=== PATIENT | female | born 1970 | race Caucasian/White ===

== ENCOUNTER 2018-06-15 22:40 | Emergency (ER) | payer BC, SELFPAY ==
[2018-06-15 22:41] VITALS: BP 215/98; PULSE 80; RESP 16; TEMP 36.7; O2SAT 92; BMI 42.3
[2018-06-15 23:09] VITALS: BP 162/85
--- NOTE | 2018-06-15 23:12 | ED.DCSUM_ITS ---
- ER Visit Summary Date of Service: 06/15/18 Chief Complaint: Abscess History of Present Illness: The patient is a [address] Gallo. She reports that she has an abscess on her right buttock to begin partially 3 weeks ago. States that it popped and she got it drained well. However she had incre asing pain over the past 2 days. She describes a sharp pain is 10 out of 10 at worst and 6 out of 10 currently. Is worsened by sitting relieved by standing. She denies any constitutional symptoms. No fever, chills, nausea, or vomiting. Patient reports that she had a right knee arthroscopy [address] Alejo[address] She reports that her knee is doing well. She states that she has minimal pain there. Physical Examination: Vitals: Stable. Afebrile. General: Well-nourished and well-developed. Head: Normocephalic atraumatic. Neck: Supple, no lymphadenopathy. No JVD. Nontender. Cardiovascular: Regular rate and rhythm. No murmurs. Respiratory: No respiratory distress. Clear to auscultation bilaterally. Abdominal: Soft, nontender, nondistended, normal bowel sounds. No guarding, rebound, or peritoneal signs. Back: Nontender. Extremities: Arthroscopy incisions are healing well over her right knee. There is no overlying erythema or warmth to suggest a septic joint. She has good range of motion with minimal pain. Skin: In the middle third of her gluteal cleft there is a 4 cm indurated area with 2 cm central fluctuance on the right.. Neurologic: Alert and oriented ?3. Cranial nerves II through XII are intact. Normal strength and sensation. Psych: Normal affect. Emergency Department Course and Treatment: Patient was treated with morphine IM. She was given doxycycline and Zofran p.o. She had an I&D performed. She tolerated this well. Treatment Plan: Patient has Machias already. She will be discharged with doxycycline and Zofran. Instructed to follow-up with Dr. Pena in 2 days for a wound check. Return to the emergency department for any worsening symptoms. Disposition: To home in improved and stable condition. Impression: 1. Right buttock abscess. 2. I&D. 3. 3 days status post right knee arthroscopy. Procedure Note: Abscess was cleansed with chlorhexidine soap. Anesthetized with 1% lidocaine without epinephrine. An incision was made with an 11 scalpel blade. A moderate amount of pus was drained. Curved hemostats were used to break up loculations. The wound was copiously irrigated with normal saline. It was loosely packed with iodoform gauze. The patient tolerated it well. This note was generated with [employer] dictation software. It may contain incorrect words, spelling, and punctuation that were not noted in review of the chart prior to signing ED Disposition - Plan for ED Patient: Disposition: Home or Assisted Living Chief Complaint: Abscess Instructions: ED Abscess IandD Prescriptions: Ondansetron [Zofran Odt] 4 mg PO Q8H PRN PRN #10 tablet PRN Reason: Nausea Doxycycline 100 mg PO BID #20 capsule Referrals: Eryn Langston MD [STAFF PHYSICIAN] - 2 Days for wound check
[2018-06-15] MEDS: Doxycycline 100 MG CAPSULE PO (23:13)
[2018-06-15] MEDS: Ondansetron ODT 4 MG Tablet PO (23:14)
[2018-06-15] MEDS: morphine 8 MG/ML Syringe IM (23:15)
[2018-06-16 00:20] VITALS: BP 152/86; PULSE 77; RESP 16; O2SAT 92
== END 2018-06-16 00:26 | disposition home or self-care (01) ==
LOC: ED 23:35
PROVIDERS: Emergency Provider Emergency Medicine; Family Provider Internal Medicine; PCP Internal Medicine
DX: L02.31 Cutaneous abscess of buttock (principal); Z98.890 Other specified postprocedural states; J45.909 Unspecified asthma, uncomplicated; E11.9 Type 2 diabetes mellitus without complications; I10 Essential (primary) hypertension; Z79.84 Long term (current) use of oral hypoglycemic drugs; Z79.899 Other long term (current) drug therapy; F17.200 Nicotine dependence, unspecified, uncomplicated
CPT/HCPCS: 10060; 96372; 99283

== ENCOUNTER 2019-01-30 11:46 | Emergency (ER) | payer SELFPAY ==
[2019-01-30 11:48] VITALS: BP 166/91; PULSE 87; RESP 18; TEMP 36.4; O2SAT 94; BMI 43.7
[2019-01-30] MEDS: 0.9% Normal Saline 1,000 ML 1000 ML IV (12:36)
[2019-01-30 12:44] LABS: Basophil# 0.05 X10^3/uL; Basophil% 0.8 % (0-1); Eosinophils% 1.7 % (0-5); Hematocrit 54.6 % (37-47); Hemoglobin 17.3 g/dL (12.0-15.0); Lymphocyte % 6.8 % (19-41); Mean Corp Hgb Conc 31.7 g/dL (32-36); Mean Corpuscular Hgb 27.8 pg (27.0-32.0); Mean Corpuscular Volume 87.8 fL (81-99); Mean Platelet Vol. 9.8 fl (6.2-12.0); Monocyte# 0.33 X10^3/uL; Monocyte% 5.6 % (0-10); NRBC Flagged by Analyzer 0 % (0-5); Neutrophil # 5.01 X10^3/uL (2.7-7.7); Neutrophil % 84.6 % (47-70); POSITIVE DIFFERENTIAL YES; Platelet Count 142 K/mm3 (150-450); RBC Distribution Width CV 14.6 % (11.6-14.6); RBC Distribution Width SD 46.6 fl (35.1-43.9); Red Blood Count 6.22 M/mm3 (4.2-5.4); White Blood Count 5.9 K/mm3 (4.4-11.0)
[2019-01-30 12:56] LABS: AST(SGOT) 58 U/L (15-37); Alanine Aminotransfer ALT/SGPT 116 U/L (13-56); Albumin, Serum 3.7 g/dL (3.2-5.0); Alkaline Phosphatase 79 U/L (45-117); Anion Gap 6 (5-15); BUN 10 mg/dL (7-18); BUN/Creat Ratio 16.7 RATIO (10-20); Bilirubin, Direct 0.37 mg/dL (0.00-0.30); Calcium,Total 9.1 mg/dL (8.5-10.1); Chloride 102 mmol/L (98-107); EST Glomerular Filtration Rate 113 mL/min (>60); Est Glom Filt Rate - Afr Amer 137 mL/min (>60); Estimated Creatinine Clearance 115.67 ml/min; Globulin 3.7 g/dL (2.2-4.2); Glucose 157 mg/dL (74-106); Lipase 98 U/L (73-393); Potassium 3.9 mmol/L (3.5-5.1); Protein, Total 7.4 g/dL (6.4-8.2); Sodium Level 138 mmol/L (136-145)
[2019-01-30 13:13] LABS: Differential Indicated SCAN CRITERIA MET
[2019-01-30 13:36] LABS: Differential Comment SCANNED
--- NOTE | 2019-01-30 13:40 | ED.DCSUM_ITS ---
- ER Visit Summary Date of Service: 01/30/19 Chief Complaint: Elevated LFTs History of Present Illness: The patient is a [address] Gallo. She reports that she had a normal checkup 2 days ago and is found to have elevated LFTs. She was sent to the emerge department for evaluation. Patient reports that yesterday she had a fever to 102 degrees and frequent urination as well as dysuria. She went to the urgent care and was diagnosed with a urinary tract infection. She was placed on Keflex. She reports that her frequency and dysuria have both improved. She reports that her temperature today has been 100.5 degrees. She does report that she has suprapubic pain, but this is normal for her. She denies any right upper quadrant tenderness to palpation. Patient denies any fatty food intolerance. She denies any known exposure to hepatitis. She does not take Tylenol. She does take Voltaren which can cause hepatitis. She has been on this for a year. Physical Examination: Vitals: Stable. Afebrile. General: Well-nourished and well-developed. Head: Normocephalic atraumatic. Neck: Supple, no lymphadenopathy. No JVD. Nontender. Cardiovascular: Regular rate and rhythm. No murmurs. Respiratory: No respiratory distress. Clear to auscultation bilaterally. Abdominal: Soft, nontender, nondistended, normal bowel sounds. No guarding, rebound, or peritoneal signs. Back: Nontender. Extremities: Nontender, no edema. Skin: Normal color, no rash. Neurologic: Alert and oriented ?3. Cranial nerves II through XII are intact. Normal strength and sensation. Psych: Normal affect. Test Results: CBC shows an H&H 17.3 and 54.6, platelets 142, segmented neutrophils 85, lymphocytes of 7. Chem-7 shows a glucose 157. LFTs show total bili 1.4, direct bili 0.37, ALT 116, AST 58. Lipase is normal. I did get her old labs from [facility] and on January 28 her AST was 48 and her ALT was 65. She did not have a bilirubin obtained then. Emergency Department Course and Treatment: I had a prolonged discussion about possible etiology of this with the patient. She had a hepatitis panel sent. She also had total iron binding capacity and iron levels sent. Treatment Plan: Patient will be discharged with instructions to stop her Voltaren. Follow-up with Dr. Gallo in 2 days for the results of the other labs. She does understand that this could be viral hepatitis, hemochromatosis, or medication related. Return to the emergency department for any worsening symptoms. Disposition: To home in improved and stable condition. Impression: 1. Elevated liver enzymes, uncertain. This note was generated with [employer] dictation software. It may contain incorrect words, spelling, and punctuation that were not noted in review of the chart prior to signing ED Disposition - Plan for ED Patient: Disposition: Home or Assisted Living Instructions: HEPATITIS, Cause Unknown (test pending) Referrals: Jose Gallo MD [Primary Care Provider] - 2 Days Additional Instructions: Stop taking your voltaren as this can cause inflammation of your liver. Speak with Dr. Gallo about the ruslts of your viral hepatitis panel, Iron level, and total iron binding capacity. If this doesn't give an answer for your elevated liver enzymes you will require further testing and possibly referral to a liver specialist.
[2019-01-30 13:56] LABS: Iron 46 ug/dL (50-170); Iron Binding Capacity,Total 403 ug/dL (250-450)
[2019-01-30 13:59] VITALS: BP 146/86; PULSE 75; RESP 17; O2SAT 98
[2019-02-02 04:07] LABS: HEPATITIS B SURFACE AG Negative (Negative); Hepatitis A IgM Antibody Negative (Negative); Hepatitis B Core AB IgM Negative (Negative)
[2019-02-02 08:36] LABS: Hep C Antibodies <0.1 s/co ratio (0.0-0.9)
== END 2019-01-30 14:00 | disposition home or self-care (01) ==
PROVIDERS: Emergency Provider Emergency Medicine; Family Provider Internal Medicine; PCP Internal Medicine
DX: R74.8 Abnormal levels of other serum enzymes (principal); R51 Headache; N39.0 Urinary tract infection, site not specified; E11.9 Type 2 diabetes mellitus without complications; K58.9 Irritable bowel syndrome, unspecified; Z87.19 Personal history of other diseases of the digestive system; Z79.84 Long term (current) use of oral hypoglycemic drugs; Z79.899 Other long term (current) drug therapy; F17.200 Nicotine dependence, unspecified, uncomplicated
CPT/HCPCS: 80048; 80074; 80076; 83540; 83550; 83690; 85025; 96360; 99283; J7030; A4216

== ENCOUNTER 2021-10-28 19:41 | Emergency (ER) | payer SELFPAY ==
[2021-10-28 19:42] VITALS: BP 173/98; PULSE 87; RESP 18; TEMP 37.6; O2SAT 98; BMI 40.7
--- NOTE | 2021-10-28 19:58 | EX.ED.DYSGE1 ---
HPI History of Present Illness Chief Complaint: Fever Detail of Chief Complaint: Fever that she noticed this morning. Informant: patient Narrative Narrative: Patient presents to the emergency department complaint of fever that started today. Patient states that she developed some chills. She took some Tylenol and felt better. Around 5 PM she noted that she had a fever again up to 103.6. She again described body aches and chills and a bit of a headache. She denies any cough or sore throat. She is had no vomiting or diarrhea. She denies any abdominal pain. She denies dysuria. Patient denies sick contacts. Patient states that she had COVID 2 years ago and never received the COVID-vaccine. Prior similar symptoms: No PFSH PFSH Medical History no medical history Home Medications amlodipine 1 tab PO DAILY 06/15/18 [History Last Taken Unknown] citalopram 1 tab PO DAILY 06/15/18 [History Last Taken Unknown] metformin 2 mg PO BID 06/15/18 [History Last Taken Unknown] ramipril 1 tab PO DAILY 06/15/18 [History Last Taken Unknown] cephalexin 500 mg PO TID 01/30/19 [History Last Taken Unknown] diclofenac sodium 75 mg PO BIDCM 01/30/19 [History Last Taken Unknown] Allergy/AdvReac Type Severity Reaction Status Date / Time No Known Allergies Allergy Verified 10/28/21 19:45 Social History Smoking Status: Current every day smoker tobacco type: cigarettes ROS ROS ED Constitutional Constitutional ED: Reports systems reviewed and no addt'l complaints, except as documented, chills, fever(s) and sweats; Denies body ache(s) or change in weight Eyes Eyes: Denies acute decrease in peripheral vision, change in vision, double vision or loss of vision ENT ENT ED: Reports none; Denies ear pain, lip swelling, loss taste/smell, neck pain, otalgia or sore throat Cardiovascular Cardiovascular: Reports none; Denies abdominal pain, chest pain with activity, leg edema, lightheadedness, palpitations, rapid heart rate or syncope Respiratory/Chest Respiratory/Chest: Reports none; Denies change in mental status, dry cough, dyspnea, hemoptysis, shortness of breath at rest or shortness of breath with exertion Gastrointestinal Gastrointestinal: Reports none; Denies abdominal pain, change in stool character, diarrhea, hematemesis, hematochezia, melena, rectal bleeding or vomiting Genitourinary Genitourinary ED: Reports none; Denies abdominal discomfort, anuria, dysuria, genital pain or polyuria Musculoskeletal Musculoskeletal: Reports none and myalgias; Denies arthralgias, back pain, difficulty walking, extremity pain or muscle weakness Integumentary Reports none; Denies abscess or rash Neurologic Neurologic: Reports none and headache(s); Denies abnormal gait, confusion, focal weakness, frequent falls, loss of vision, numbness, paresthesias, radicular pain, vertigo or weakness Psychiatric Psychiatric: Reports systems reviewed and no addt'l complaints, except as documented and none; Denies behavioral changes, confusion, difficulty concentrating, hallucinations, suicidal ideation, tactile hallucinations or visual hallucinations Endocrine Endocrinology: Denies none, cold intolerance, excessive sweating, fatigue or heat intolerance Hematologic/Lymphatic Hematologic/Lymphatic: Reports none; Denies anemia, easy bleeding or easy bruising Allergic/Immunologic Allergic/Immunologic ED: Denies as per HPI, none, lip swelling, mouth swelling, throat swelling, tongue swelling or hives EXAM Physical Exam Const Vital Signs: 10/28/21 19:42 10/28/21 21:16 Temperature 99.6 F H Temperature Source Temporal Pulse Rate 87 Respiratory Rate 18 18 Blood Pressure 173/98 H Blood Pressure Mean 123 Pulse Ox 98 Oxygen Delivery Method Room Air Positive well nourished and well developed General Appearance ED: well developed and NAD HEENT Reports TM's clear and moist mucous membranes normocephalic and atraumatic; Negative for trauma or tenderness Tympanic Membrane ED: Yes TM's clear Eyes PERRL and EOMs intact bilaterally General Eye ED: Negative for pale conjunctiva or scleral icterus Neck no lymphadenopathy, supple and no JVD General: Negative for tenderness Chest Wall inspection of chest normal and palpation of chest normal Chest: Negative for tenderness Resp normal respiratory effort and clear to auscultation bilaterally Effort and Inspection: Negative for respiratory distress or pain with movement Auscultation: Negative for rhonchi, wheezes or diminished lung sounds Cardio regular rate, regular rhythm, S1 normal heart sound, S2 normal heart sound and no murmurs Peripheral Pulses: pulses 2+ throughout GI normal to inspection, nondistended, normoactive bowel sounds, soft to palpation, non-tender, non-distended and no masses Back/Spine no CVA tenderness and no thoracic nor lumbar tenderness Extremity normal to inspection General Extremety ED: Negative for edema General Extremity: Negative for edema Neuro oriented x3, CN's II-XII intact bilaterally, no sensory deficits noted and gait normal Sensorium / Orientation: awake, alert, oriented to person, oriented to place and oriented to time Motor Exam: strength 5/5 throughout and strength abnormal Psych mental status grossly normal Skin no rashes or lesions noted and no wounds MDM MDM MDM Narrative Medical decision making narrative: Patient had a urinalysis that was normal. COVID-19 testing and influenza were both negative. At this point etiology of fever is unclear but I suspect likely viral syndrome. Patient advised to return if cough or shortness of breath or cellulitic changes or if condition should worsen anyway. Patient is a ibuprofen or Tylenol for discomfort and fever. Patient to follow-up with her primary care physician within next 3 to 5 days. Lab Data Labs: Laboratory Results - last 24 hr 10/28/21 20:00 Urine Color Yellow Urine Clarity Clear Urine pH 7.0 Ur Specific [place] 1.010 Urine Protein 500 H Urine Glucose (UA) 50 H Urine Ketones Negative Urine Occult Blood 25 H Urine Nitrite Negative Urine Bilirubin Negative Urine Urobilinogen Normal Ur Leukocyte Esterase 25 H Urine RBC 0-5 SEEN Urine WBC 0-5 SEEN Ur Squamous Epith Cells 0 SEEN Urine Bacteria 0 SEEN Urine Mucus 0 SEEN Discharge Plan Triage Chief Complaint: Fever ED Provider: Meliza Zendejas Dx/Rx/DC Orders Clinical Impression: Fever, Acute viral syndrome Instructions: ED FUO Adult, ED Viral Syndrome (Adult) Prescriptions: No Action metformin 500 MG tablet 2 mg PO BID RF: 0 amlodipine 2.5 MG tablet 1 tab PO DAILY RF: 0 citalopram 20 MG tablet 1 tab PO DAILY RF: 0 ramipril 5 MG capsule 1 tab PO DAILY RF: 0 cephalexin 500 MG capsule 500 mg PO TID RF: 0 diclofenac sodium 75 MG tablet 75 mg PO BIDCM RF: 0 Primary Care Provider: Jose Gallo Referrals: Jose Gallo MD [Primary Care Provider] - 3-5 Days Disposition Disposition: Home, Self Care
[2021-10-28 20:07] LABS: Bacteria 0 SEEN /hpf (None Seen); Mucous, Urine 0 SEEN /hpf (<or=2+); Squamous Epithelial Cells - UA 0 SEEN /hpf (5-10)
[2021-10-28 20:09] LABS: Color, Urine Yellow (Yellow); Glucose, Dipstick 50 mg/dl (Normal); Ketone-Dipstick Negative (Negative); Leukocyte Esterase-Dipstick 25 /ul (Negative); Nitrite-Dipstick Negative (Negative); Occult Blood-Urine 25 /ul (Negative); Protein-Dipstick 500 mg/dl (Negative); Urine Bilirubin Dipstick Negative (Negative); Urine Clarity Clear (Clear); Urine Urobilinogen Normal (Normal)
[2021-10-28 20:26] LABS: Red Blood Cells-Urine 0-5 SEEN /hpf (0-5); White Blood Cells 0-5 SEEN /hpf (0-5)
[2021-10-28 21:16] VITALS: RESP 18
== END 2021-10-28 21:31 | disposition home or self-care (01) ==
PROVIDERS: Emergency Provider Emergency Medicine; PCP Internal Medicine; Visit Provider Emergency Medicine
DX: B34.9 Viral infection, unspecified (principal); F17.210 Nicotine dependence, cigarettes, uncomplicated; Z86.16 Personal history of COVID-19; Z28.310 Unvaccinated for COVID-19; Z28.9 Immunization not carried out for unspecified reason; R50.9 Fever, unspecified
CPT/HCPCS: 81001; 87428; 99282

== ENCOUNTER 2021-10-29 15:12 | Emergency (ER) | payer SELFPAY ==
[2021-10-29 15:13] VITALS: BP 164/87; PULSE 83; RESP 20; TEMP 36.4; O2SAT 95; BMI 40.9
[2021-10-29 15:15] VITALS: BP 159/92; PULSE 77; RESP 18; TEMP 38.2; O2SAT 91
--- NOTE | 2021-10-29 15:28 | EDS_ITS ---
HPI History of Present Illness Chief Complaint: Abd Pain Informant: patient Narrative Narrative: 51-year-old female presenting to the emergency room with fever and abdominal pressure. Patient states she was in the emergency room last night with fever and did not have any abdominal symptoms but did noted myalgias headache and frequent urination. A COVID and flu test were negative. Urinalysis was negative and culture sent. The patient developed pressure this morning went to urgent care and they advised her to come to emergency. She states this feels different than her diverticulitis. She denies any URI symptoms. No cough or shortness of breath. She denies any change in bowel habits. [facility] Medical History (Updated 10/29/21 @ 17:[address] Wilmer Escobar DO) Depression Diverticulitis Hypertension Home Medications amlodipine 1 tab PO DAILY 06/15/18 [History Last Taken Unknown] citalopram 1 tab PO DAILY 06/15/18 [History Last Taken Unknown] metformin 2 mg PO BID 06/15/18 [History Last Taken Unknown] ramipril 1 tab PO DAILY 06/15/18 [History Last Taken Unknown] cephalexin 500 mg PO TID 01/30/19 [History Last Taken Unknown] diclofenac sodium 75 mg PO BIDCM 01/30/19 [History Last Taken Unknown] ciprofloxacin HCl 500 mg PO BID #20 tablet 10/29/21 [Rx Last Taken Unknown] metronidazole 500 mg PO Q8H #30 tab 10/29/21 [Rx Last Taken Unknown] ondansetron 4 mg PO Q6H PRN PRN #15 tab 10/29/21 [Rx Last Taken Unknown] oxycodone-acetaminophen 1 tab PO Q6H PRN PRN 3 Days #12 tablet 10/29/21 [Rx Last Taken Unknown] Allergy/AdvReac Type Severity Reaction Status Date / Time amoxicillin AdvReac Rash Verified 10/29/21 15:13 Social History (Updated 10/29/21 @ 15:[address] Wilmer Escobar DO) Smoking Status: Current every day smoker tobacco type: cigarettes substance use type: does not use ROS ROS ED Constitutional Constitutional ED: Reports chills and fever(s); Denies weight loss Eyes Eyes: Denies change in vision or diplopia ENT ENT ED: Denies ear pain, rhinorrhea or sore throat Cardiovascular Cardiovascular: Denies chest pain, orthopnea, palpitations or racing heartbeat Respiratory/Chest Respiratory/Chest: Denies cough, dyspnea or orthopnea Gastrointestinal Gastrointestinal: Reports abdominal pain; Denies diarrhea, nausea or vomiting Genitourinary Genitourinary ED: Reports urinary frequency; Denies dysuria or hematuria Musculoskeletal Musculoskeletal: Reports myalgias; Denies arthralgias Integumentary Denies abscess or rash Neurologic Neurologic: Reports headache(s); Denies weakness Psychiatric Psychiatric: Denies anxiety, depression, suicidal ideation or suicidal thoughts Endocrine Endocrinology: Denies polydipsia, polyphagia or polyuria Allergic/Immunologic Allergic/Immunologic ED: Denies mouth swelling, tongue swelling or urticaria EXAM Physical Exam Const Vital Signs: 10/29/21 15:13 10/29/21 15:15 10/29/21 16:07 Temperature 97.5 F L 100.8 F H 100.8 F H Temperature Source Temporal Oral Oral Pulse Rate 83 77 77 Respiratory Rate 20 H 18 18 Blood Pressure 164/87 H 159/92 H 159/92 H Blood Pressure Mean 112 114 114 Pulse Ox 95 91 91 Oxygen Delivery Method Room Air Room Air Room Air 10/29/21 16:16 10/29/21 17:00 Temperature 100.2 F H 98.7 F Temperature Source Oral Oral Pulse Rate 76 82 Respiratory Rate 14 18 Blood Pressure 159/97 H 140/88 H Blood Pressure Mean 117 105 Pulse Ox 94 94 Oxygen Delivery Method Room Air Room Air Positive well nourished, well developed and obese General Appearance ED: well developed Nutritional Appearance: obese HEENT Reports normocephalic, head/scalp atraumatic, TM's clear and moist mucous membranes Negative for trauma Tympanic Membrane ED: Yes TM's clear Eyes PERRL and EOMs intact bilaterally Eyes Narrative: No photophobia Neck no lymphadenopathy, supple and no JVD Neck Narrative: No meningeal signs Resp normal respiratory effort and clear to auscultation bilaterally Cardio regular rate, regular rhythm and no murmurs GI normal to inspection, nondistended, normoactive bowel sounds and non-tender Palpation: soft Back/Spine no CVA tenderness and normal ROM Extremity normal to inspection General Extremety ED: Negative for edema General Extremity: Negative for edema Neuro oriented x3 and CN's II-XII intact bilaterally Sensorium / Orientation: alert Motor Exam: strength 5/5 throughout Psych mental status grossly normal Mood & Affect: Negative for depressed or tearful Skin no rashes or lesions noted and no wounds MDM MDM MDM Narrative Medical decision making narrative: Patient's white count is 6.3 with a hemoglobin of 19.4. Lactic acid is normal at 1.1. Urinalysis is negative for obvious infection. CT of the abdomen pelvis demonstrates changes consistent with early diverticulitis no perforation or abscess noted. My interpretation of the chest x-ray is no acute process. Patient will be discharged home on Cipro and Flagyl which she has handled well in the past Lab Data Attestation: I reviewed the patient's lab results. Labs: Laboratory Results - last 24 hr 10/29/21 10/29/21 10/29/21 15:30 15:30 15:30 WBC 6.3 RBC 6.72 H Hgb 19.4 H* Hct 60.9 H MCV 90.6 MCH 28.9 MCHC 31.9 L RDW Std Deviation 45.2 H RDW Coeff of Luz Maria 13.6 Plt Count 123 L MPV 10.0 Immature Gran % (Auto) 0.500 Neut % (Auto) 85.4 H Lymph % (Auto) 5.9 L [place] % (Auto) 6.1 Eos % (Auto) 1.3 Baso % (Auto) 0.8 Absolute Neuts (auto) 5.4 Absolute Lymphs (auto) 0.37 L Nucleated RBC % 0 Differential Comment SCANNED Diff Path Review May foll PT Cancelled INR Cancelled APTT Cancelled Sodium 135 L Potassium 3.9 Chloride 99 Carbon Dioxide 31.0 Anion Gap 5 BUN 17 Creatinine 0.64 Estim Creat Clear Calc 104.91 Est GFR (MDRD) Af Amer 126 Est GFR (MDRD) Non-Af 104 BUN/Creatinine Ratio 26.6 H Glucose 109 H Lactic Acid Calcium 9.2 Total Bilirubin 2.00 H AST 32 ALT 44 Alkaline Phosphatase 63 Total Protein 7.0 Albumin 3.4 Globulin 3.6 Albumin/Globulin Ratio 0.9 Urine Color Urine Clarity Urine pH Ur Specific [place] Urine Protein Urine Glucose (UA) Urine Ketones Urine Occult Blood Urine Nitrite Urine Bilirubin Urine Urobilinogen Ur Leukocyte Esterase Urine RBC Urine WBC Ur Squamous Epith Cells Urine Bacteria Urine Mucus 10/29/21 10/29/21 10/29/21 15:30 15:38 16:30 WBC RBC Hgb Hct MCV MCH MCHC RDW Std Deviation RDW Coeff of Luz Maria Plt Count MPV Immature Gran % (Auto) Neut % (Auto) Lymph % (Auto) [place] % (Auto) Eos % (Auto) Baso % (Auto) Absolute Neuts (auto) Absolute Lymphs (auto) Nucleated RBC % Differential Comment Diff Path Review PT 16.1 H INR 1.3 APTT 29.1 Sodium Potassium Chloride Carbon Dioxide Anion Gap BUN Creatinine Estim Creat Clear Calc Est GFR (MDRD) Af Amer Est GFR (MDRD) Non-Af BUN/Creatinine Ratio Glucose Lactic Acid 1.1 Calcium Total Bilirubin AST ALT Alkaline Phosphatase Total Protein Albumin Globulin Albumin/Globulin Ratio Urine Color Yellow Urine Clarity Clear Urine pH 6.0 Ur Specific [place] 1.015 Urine Protein 100 H Urine Glucose (UA) Normal Urine Ketones 5 H Urine Occult Blood 50 H Urine Nitrite Negative Urine Bilirubin 1 H Urine Urobilinogen 4 H Ur Leukocyte Esterase 25 H Urine RBC 0-5 SEEN Urine WBC 0-5 SEEN Ur Squamous Epith Cells 0-5 SEEN Urine Bacteria 1+ Urine Mucus 0 SEEN Radiography Diagnostic Testing: Clinical Impression(s) from Imaging Studies Abdomen/Pelvis CT 10/29/21 16:52 IMPRESSION: 1. Findings of an early sigmoid diverticulitis without abscess formation or fluid collections. 2. No appendicitis or intestinal obstruction. 3. No cholecystitis or pancreatitis. 4. No obstructive uropathy or pyelonephritis. Electronically Signed: Chris Weaver MD at 17:29 EDT , Chest X-Ray 10/29/21 17:20 IMPRESSION: 1. Borderline cardiomegaly without heart failure. 2. No other evidence of active cardiopulmonary disease. 3. No pneumonia, pneumonitis or bronchitis. 4. Normal osseous structures. Electronically Signed: Chris Weaver MD at 17:35 EDT , Discharge Plan Triage Chief Complaint: Abd Pain Other Complaint: Fever ED Provider: Wilmer Escobar Dx/Rx/DC Orders Clinical Impression: Sigmoid diverticulitis Instructions: ED Diverticulitis Prescriptions: New metronidazole [metronidazole] 500 MG tablet 500 mg PO Q8H Qty: 30 RF: 0 ciprofloxacin HCl [ciprofloxacin HCl] 500 MG tablet 500 mg PO BID Qty: 20 RF: 0 oxycodone-acetaminophen [oxycodone-acetaminophen] 1 TABLET tablet 1 tab PO Q6H PRN PRN (Reason: Pain) 3 Days Qty: 12 RF: 0 ondansetron [ondansetron] 4 MG tablet 4 mg PO Q6H PRN PRN (Reason: Nausea) Qty: 15 RF: 0 No Action metformin 500 MG tablet 2 mg PO BID RF: 0 amlodipine 2.5 MG tablet 1 tab PO DAILY RF: 0 citalopram 20 MG tablet 1 tab PO DAILY RF: 0 ramipril 5 MG capsule 1 tab PO DAILY RF: 0 cephalexin 500 MG capsule 500 mg PO TID RF: 0 diclofenac sodium 75 MG tablet 75 mg PO BIDCM RF: 0 Primary Care Provider: Jose Gallo Referrals: Jose Gallo MD [Primary Care Provider] - As Needed Disposition Disposition: Home, Self Care
[2021-10-29 15:45] LABS: Mucous, Urine 0 SEEN /hpf (<or=2+)
[2021-10-29 15:57] LABS: Absolute Lymphocyte Count 0.37 X10^3/uL (0.83-4.51); Absolute Neutrophil Count 5.4 X10^3/uL (2.0-7.7); Basophil# 0.05 X10^3/uL; Basophil% 0.8 % (0-1); Eosinophil# 0.08 X10^3/uL; Eosinophils% 1.3 % (0-5); Lymphocyte # 0.37 X10^3/ul (0.83-4.51); Lymphocyte % 5.9 % (19-41); Mean Corp Hgb Conc 31.9 g/dL (32-36); Mean Corpuscular Hgb 28.9 pg (27.0-32.0); Mean Corpuscular Volume 90.6 fL (81-99); Monocyte# 0.38 X10^3/uL; Monocyte% 6.1 % (0-10); NRBC Flagged by Analyzer 0 % (0-5); Neutrophil # 5.36 X10^3/uL (2.7-7.7); Neutrophil % 85.4 % (47-70); POSITIVE DIFFERENTIAL YES; Platelet Count 123 K/mm3 (150-450); RBC Distribution Width CV 13.6 % (11.6-14.6); RBC Distribution Width SD 45.2 fl (35.1-43.9); Red Blood Count 6.72 M/mm3 (4.2-5.4); White Blood Count 6.3 K/mm3 (4.4-11.0)
[2021-10-29 16:04] LABS: Color, Urine Yellow (Yellow); Glucose, Dipstick Normal (Normal); Ketone-Dipstick 5 mg/dl (Negative); Leukocyte Esterase-Dipstick 25 /ul (Negative); Nitrite-Dipstick Negative (Negative); Occult Blood-Urine 50 /ul (Negative); Protein-Dipstick 100 mg/dl (Negative); Specific Gravity, Urine 1.015 (1.002-1.030); Urine Clarity Clear (Clear); Urine Urobilinogen 4 mg/dl (Normal)
[2021-10-29] MEDS: 0.9% Normal Saline 1,000 ML 999 ML IV (16:04)
[2021-10-29 16:07] VITALS: BP 159/92; PULSE 77; RESP 18; TEMP 38.2; O2SAT 91
[2021-10-29 16:07] LABS: Differential Indicated SCAN CRITERIA MET; Hematocrit 60.9 % (37-47)
[2021-10-29 16:08] LABS: Hemoglobin 19.4 g/dL (12.0-15.0)
[2021-10-29 16:12] LABS: ALB/GLOB Ratio 0.9 RATIO (0.9-2.4); AST(SGOT) 32 U/L (15-37); Alanine Aminotransfer ALT/SGPT 44 U/L (13-56); Albumin, Serum 3.4 g/dL (3.2-5.0); Alkaline Phosphatase 63 U/L (45-117); Anion Gap 5 (5-15); BUN 17 mg/dL (7-18); BUN/Creat Ratio 26.6 RATIO (10-20); Calcium,Total 9.2 mg/dL (8.5-10.1); Chloride 99 mmol/L (98-107); Creatinine, Serum 0.64 mg/dL (0.55-1.02); EST Glomerular Filtration Rate 104 mL/min (>60); Est Glom Filt Rate - Afr Amer 126 mL/min (>60); Estimated Creatinine Clearance 104.91 ml/min; Globulin 3.6 g/dL (2.2-4.2); Glucose 109 mg/dL (74-106); Potassium 3.9 mmol/L (3.5-5.1); Sodium Level 135 mmol/L (136-145)
[2021-10-29 16:12] LABS: Urine Bilirubin Dipstick 1 mg/dL (Negative)
[2021-10-29 16:16] VITALS: BP 159/97; PULSE 76; RESP 14; TEMP 37.9; O2SAT 94
[2021-10-29] MEDS: Acetaminophen 500 MG Tablet 1000 MG PO (16:17)
[2021-10-29 16:22] LABS: Red Blood Cells-Urine 0-5 SEEN /hpf (0-5); Squamous Epithelial Cells - UA 0-5 SEEN /hpf (5-10); White Blood Cells 0-5 SEEN /hpf (0-5)
[2021-10-29 16:23] LABS: Bacteria 1+ /hpf (None Seen)
[2021-10-29 16:42] LABS: Differential Comment SCANNED
--- NOTE | 2021-10-29 16:52 | CT_ITS ---
STUDY: CT ABDOMEN AND PELVIS WITH CONTRAST ENHANCEMENT ON 1656 HOURS ON 10/29/2021 REASON FOR EXAM: 51-year-old female with abdominal pain and fever. RADIATION DOSAGE (If Supplied By Facility): CTDIvol = ( 18.71 ) mGy, DLP = ( 1323.47 ) mGycm TECHNIQUE: Transaxial images were obtained from the dome of the diaphragm to the symphysis pubis without oral contrast. 100 ML OF ISOVUE 370 was administered. Sagittal and coronal images were reconstructed. Individualized dose optimization techniques were used for this CT. COMPARISON: None. FINDINGS: The visualized lung bases are unremarkable. The visualized portions of the heart are within normal limits. Normal liver. Normal gallbladder and extrahepatic biliary system; no cholelithiasis or cholecystitis.. Normal spleen. Normal pancreas; no pancreatitis or pancreatic mass lesions.. Normal bilateral adrenal glands. There is a 1.7 cm diameter simple cyst in the medial mid body of the right kidney. There is a 1.1 cm simple partially exophytic cyst in the medial lower pole of the left kidney. There is a 2.4 cm in diameter simple cyst in the posterior and medial mid body of the left kidney. This demonstrates hydronephrosis or obstructive uropathy. No evidence of pyelonephritis. Normal visualized stomach. Normal small intestine. Findings of an early sigmoid colonic diverticulitis. There is no evidence of abscess formation or fluid collections. The appendix is visualized and appears normal. Normal abdominal aorta. Normal inferior vena cava. Normal retroperitoneum. No free air or free fluid. Empty bladder. Normal uterus. No ovarian cystic or solid mass lesions. Normal abdominal wall. Normal osseous structures. CT/Abdomen/Pelvis W IV Cont ONLY IMPRESSION: 1. Findings of an early sigmoid diverticulitis without abscess formation or fluid collections. 2. No appendicitis or intestinal obstruction. 3. No cholecystitis or pancreatitis. 4. No obstructive uropathy or pyelonephritis. Electronically Signed: Chris Weaver MD at 17:29 EDT ,
[2021-10-29 16:53] LABS: International Normalized Ratio 1.3; Prothrombin Time (Protime)PT. 16.1 SECONDS (11.7-14.9)
[2021-10-29 16:54] LABS: Partial Thromboplast Time 29.1 Seconds (24.1-36.2)
[2021-10-29 17:00] VITALS: BP 140/88; PULSE 82; RESP 18; TEMP 37.1; O2SAT 94
[2021-10-29 17:03] LABS: Lactic Acid 1.1 mmol/L (0.4-1.9)
--- NOTE | 2021-10-29 17:20 | RAD_ITS ---
STUDY: PORTABLE AP UPRIGHT CHEST X-RAY OF 1714 HOURS 10/29/2021 REASON FOR EXAM: 51-year-old female with fever. TECHNIQUE: A single view portable AP upright chest x-ray was performed per protocol. COMPARISON: None. FINDINGS: Normal osseous structures. Borderline cardiomegaly. No evidence of heart failure. Mildly elevated left hemidiaphragm--normal variant. No pulmonary infiltrates, atelectasis, effusion, pulmonary mass lesions. No pneumonia, pneumonitis, or bronchitis. RAD/Chest 1 View (Portable) IMPRESSION: 1. Borderline cardiomegaly without heart failure. 2. No other evidence of active cardiopulmonary disease. 3. No pneumonia, pneumonitis or bronchitis. 4. Normal osseous structures. Electronically Signed: Chris Weaver MD at 17:35 EDT ,
[2021-10-30 12:43] LABS: Pathologist Review Reviewed
== END 2021-10-29 18:05 | disposition home or self-care (01) ==
PROVIDERS: Emergency Provider Emergency Medicine; PCP Internal Medicine; Visit Provider Emergency Medicine
DX: K57.32 Diverticulitis of large intestine without perforation or abscess without bleeding (principal); Z68.41 Body mass index [BMI] 40.0-44.9, adult; F17.210 Nicotine dependence, cigarettes, uncomplicated; I10 Essential (primary) hypertension; F32.A Depression, unspecified; Z79.899 Other long term (current) drug therapy; E66.9 Obesity, unspecified
CPT/HCPCS: 71045; 74177; 80053; 81001; 83605; 85025; 85610; 85730; 87040; 87086; 87088; 96360; 96361; 99284; J7030; Q9967; A4216

== ENCOUNTER 2022-03-08 03:16 | Emergency (ER) | payer SELFPAY ==
[2022-03-08 03:18] VITALS: BP 191/87; PULSE 73; RESP 16; TEMP 36.8; O2SAT 98; BMI 41.0
--- NOTE | 2022-03-08 03:24 | EDS_ITS ---
HPI History of Present Illness Chief Complaint: Fall Informant: patient Onset/Context/Timing Onset: Today Current Severity: Moderate Maximum Severity: Moderate Narrative Narrative: Patient presents after falling out of bed. She states she was awoken to falling out of her bed onto the floor. She did have an abrasion to her nose and had a bloody nose at the time. This is since resolved. She is complaining of pain to the left lower ribs. She denies striking her head. No loss of consciousness. She is not on anticoagulants. [facility] Medical History Depression Diverticulitis Hypertension Home Medications amlodipine 2.5 mg tablet 1 tab PO DAILY 06/15/18 [History Last Taken Unknown] citalopram 20 mg tablet 1 tab PO DAILY 06/15/18 [History Last Taken Unknown] metformin 500 mg tablet 2 mg PO BID 06/15/18 [History Last Taken Unknown] oxycodone-acetaminophen 5 mg-325 mg tablet (Percocet) 1 tab PO Q6H PRN pain 3 days #10 tabs 03/08/22 [Rx Last Taken Unknown] oxycodone-acetaminophen 5 mg-325 mg tablet (Percocet) 1 tab PO Q6H PRN pain 3 days #10 tabs 03/08/22 [Rx Last Taken Unknown] ramipril 10 mg capsule 10 mg PO BID 03/08/22 [History Last Taken Unknown] Allergy/AdvReac Type Severity Reaction Status Date / Time amoxicillin AdvReac Rash Verified 03/08/22 03:17 Social History Smoking Status: Current every day smoker tobacco type: cigarettes substance use type: does not use ROS ROS ED Constitutional Constitutional ED: Denies chills or fever(s) Eyes Eyes: Denies change in vision or discharge from eye(s) ENT ENT ED: Denies discharge from eye(s), rhinorrhea or sore throat Cardiovascular Cardiovascular: Reports chest pain; Denies palpitations Respiratory/Chest Respiratory/Chest: Denies cough or dyspnea Gastrointestinal Gastrointestinal: Denies abdominal pain, diarrhea, nausea or vomiting Genitourinary Genitourinary ED: Denies dysuria Musculoskeletal Musculoskeletal: Denies back pain or extremity pain Integumentary Reports Abrasions; Denies rash Neurologic Neurologic: Denies headache(s) or weakness Allergic/Immunologic Allergic/Immunologic ED: Denies lip swelling or urticaria EXAM Physical Exam Const Vital Signs: 03/08/22 03:18 03/08/22 03:25 Temperature 98.2 F Temperature Source Oral Pulse Rate 73 Respiratory Rate 16 Respiratory Effort Normal Respiratory Depth Normal Respiratory Pattern Normal Blood Pressure 191/87 H Blood Pressure Mean 121 Pulse Ox 98 Oxygen Delivery Method Room Air Room Air Positive well nourished and well developed General Appearance ED: well developed HEENT Reports moist mucous membranes HEENT Narrative: Linear abrasion on the nose. No active bleeding at this time. Eyes PERRL and EOMs intact bilaterally Neck no lymphadenopathy Chest Wall inspection of chest normal Chest Narrative: Left anterior lower rib tenderness palpation. No crepitus. Resp normal respiratory effort and clear to auscultation bilaterally Cardio regular rate and regular rhythm GI normal to inspection, nondistended, normoactive bowel sounds Back/Spine Back/Spine Narrative: No thoracic or lumbar tenderness. Extremity normal to inspection Neuro oriented x3 and no sensory deficits noted Motor Exam: strength 5/5 throughout Psych mental status grossly normal Skin Skin Narrative: Facial abrasion as noted above. MDM MDM MDM Narrative Medical decision making narrative: Patient initially declined anything for pain. She did agree to a topical Lidod erm patch. Rib series with chest x-ray obtained. Radiography Diagnostic Testing: Clinical Impression(s) from Imaging Studies Ribs w/Chest X-Ray 03/08/22 03:40 IMPRESSION: Negative chest and left ribs series. Electronically Signed: Marcelino Lopes MD at 3:58 EDT , Treatment and Re-Evaluation Narrative: Rib x-rays and chest x-ray per my interpretation reveal no obvious acute fractures. No pneumothorax. Radiology interpretation is reviewed and agrees. Repeat evaluation we discussed importance of deep breathing to prevent pneumonia. She is still having significant pain especially when she tries to take a deep breath. She has agreed to a prescription for Percocet that she will use only as needed. She will be given a dose of oxycodone prior to discharge. Discharge Plan Triage Chief Complaint: Fall ED Provider: Lucita Black Dx/Rx/DC Orders Clinical Impression: Fall, Contusion of rib Instructions: ED Chest Wall Contusion Prescriptions: New oxycodone-acetaminophen [Percocet] 5-325 mg tablet 1 tab PO Q6H PRN (Reason: pain) 3 Days Qty: 10 0RF oxycodone-acetaminophen [Percocet] 5-325 mg tablet 1 tab PO Q6H PRN (Reason: pain) 3 Days Qty: 10 0RF No Action metformin 500 MG tablet 2 mg PO BID amlodipine 2.5 MG tablet 1 tab PO DAILY citalopram 20 MG tablet 1 tab PO DAILY ramipril 10 mg capsule 10 mg PO BID Label Comments: TAKE 1 CAPSULE BY MOUTH TWICE DAILY Primary Care Provider: Jose Gallo Referrals: Jose Gallo MD [Primary Care Provider] - 1-2 Weeks Disposition Disposition: Home, Self Care Discharge Date/Time: 03/08/22 04:11
[2022-03-08] MEDS: Lidocaine 5% Patch 1 PATCH TOPICAL (03:27)
--- NOTE | 2022-03-08 03:40 | RAD_ITS ---
EXAM: XR LEFT RIBS AND AP CHEST, 3 OR MORE VIEWS CLINICAL INDICATION: fall TECHNIQUE: Frontal and oblique views of the left ribs and frontal view of the chest. This report was created using [employer] report [employer] technology. COMPARISON: None. FINDINGS: LUNGS AND PLEURAL SPACES: Unremarkable. No consolidation or edema. No pneumothorax. No effusion. HEART: Unremarkable. Cardiac silhouette not enlarged. MEDIASTINUM: Central airways and mediastinal contour are unremarkable. BONES/JOINTS: Unremarkable. No evidence of displaced rib fractures. RAD/Ribs Uni Min 3V w/PA Chest IMPRESSION: Negative chest and left ribs series. Electronically Signed: Marcelino Lopes MD at 3:58 EDT ,
[2022-03-08] MEDS: oxyCODONE 5 MG Tablet PO (04:08)
== END 2022-03-08 04:11 | disposition home or self-care (01) ==
PROVIDERS: Emergency Provider Emergency Medicine; PCP Internal Medicine; Visit Provider Emergency Medicine
DX: S20.212A Contusion of left front wall of thorax, initial encounter (principal); I10 Essential (primary) hypertension; F17.210 Nicotine dependence, cigarettes, uncomplicated; S00.31XA Abrasion of nose, initial encounter; W06.XXXA Fall from bed, initial encounter; F32.A Depression, unspecified; Z79.899 Other long term (current) drug therapy; Z87.19 Personal history of other diseases of the digestive system
CPT/HCPCS: 71101; 99284

== ENCOUNTER 2022-12-22 19:40 | Emergency (ER) | payer SELFPAY ==
[2022-12-22 19:40] VITALS: BP 186/79; PULSE 78; RESP 18; TEMP 36.7; O2SAT 95; BMI 42.3
--- NOTE | 2022-12-22 20:29 | EX.ED.DYSGE1 ---
HPI History of Present Illness Chief Complaint: Cellulitis Narrative Narrative: Patient is a 52-year-old female who is presenting to the ER with chief complaining concern of infection to the right lateral aspect of her leg. Patient states over 1 to 2 weeks ago, she feels like she might of gotten bitten by a bug. Patient states she has been using topical antibiotic ointment over a week ago, it was getting better then she stopped using antibiotic ointment. Patient is a diabetic. Patient was at her mother's house this past weekend, noticed that she started getting some swelling and pain to the right lateral aspect where the insect bite was previously. Patient noticed that she had a small amount of whitish drainage coming from the area. Patient came into the ER for evaluation tonight. Patient does have a PCP. Patient has no fever, chills, nausea, vomiting, or any other systemic complaints. [facility] Medical History Depression Diverticulitis Hypertension Home Medications amlodipine 2.5 mg tablet 1 tab PO DAILY 06/15/18 [History Last Taken Unknown] citalopram 20 mg tablet 1 tab PO DAILY 06/15/18 [History Last Taken Unknown] metformin 500 mg tablet 2 mg PO BID 06/15/18 [History Last Taken Unknown] oxycodone-acetaminophen 5 mg-325 mg tablet (Percocet) 1 tab PO Q6H PRN pain 3 days #10 tabs 03/08/22 [Rx Last Taken Unknown] oxycodone-acetaminophen 5 mg-325 mg tablet (Percocet) 1 tab PO Q6H PRN pain 3 days #10 tabs 03/08/22 [Rx Last Taken Unknown] ramipril 10 mg capsule 10 mg PO BID 03/08/22 [History Last Taken Unknown] mupirocin 2 % topical ointment 1 applic topical TID 14 days #1 tube 12/22/22 [Rx Last Taken Unknown] Allergy/AdvReac Type Severity Reaction Status Date / Time amoxicillin AdvReac Rash Verified 12/22/22 19:44 Social History Smoking Status: Current every day smoker tobacco type: cigarettes substance use type: does not use ROS ROS ED ROS Narrative REVIEW OF SYSTEMS: Unless otherwise stated in this report the patient's positive and negative responses for review of systems for constitutional, eyes, ENT, cardiovascular, respiratory, gastrointestinal, neurological, , musculoskeletal, and integument systems and related systems to the presenting problem are either stated in the history of present illness or were not pertinent or were negative for the symptoms and/or complaints related to the presenting medical problem. EXAM Physical Exam Narrative Exam Narrative: Vital signs reviewed and patient is not hypoxic. General: The patient appears well and in no apparent distress. Patient is resting comfortably on cart. Not toxic, lethargic, or listless. Skin: Warm, dry, no pallor noted. There is no rash noted. Patient has 1 x 1 cm area of minimal redness, tenderness to palpation to the right mid lateral lower leg. No secondary signs of cellulitis. Patient has normal reddish discoloration to bilateral lower extremities with chronic petechiae, nothing new or acute. Patient has no new signs of cellulitis. No new signs of any infection. No palpable abscess. No drainage or pus or fluid is able to be expressed from the 1 x 1 cm area of irritation the patient is concerned of possible abscess from previous bug bite. Head: Normocephalic, atraumatic Eye: Normal conjunctiva, no drainage, EOMI. PERRL. Ears, Nose, Mouth, and Throat: oral mucosa is moist. Nares patent. Mouth without vesicles. Cardiovascular: Regular Rate and Rhythm, no murmurs, gallops, or rubs Respiratory: Patient is in no distress, no accessory muscle use, lungs are clear to auscultation, no wheezing, rales or rhonchi GI: Soft, no tenderness Musculoskeletal: The patient has full range of motion of all extremities and joints with no difficulty. Patient has no motor, no sensory deficits. Neurological: A&O x4, normal speech, no focal neurological deficits. Psychiatric: Cooperative Const Vital Signs: 12/22/22 19:40 12/22/22 20:14 Temperature 98.1 F Temperature Source Temporal Pulse Rate 78 Respiratory Rate 18 Respiratory Effort Normal Respiratory Pattern Normal Blood Pressure 186/79 H Blood Pressure Mean 114 Pulse Ox 95 Oxygen Delivery Method Room Air MDM MDM MDM Narrative Medical decision making narrative: Patient was placed on Bactroban ointment to help prevent infection. No obvious signs of infection is noted. No palpable abscess, no expression of any fluid or pus was able to be done from the right mid lower lateral leg the patient is concerned about possible infection. Patient is placed on Bactroban, no systemic antibiotics needed. Patient will follow-up with PCP. No questions at discharge. Discharge Plan Triage Chief Complaint: Cellulitis ED Provider: Ish Henderson Dx/Rx/DC Orders Clinical Impression: Abscess, Insect bite Instructions: Bite Sting Insect Spider Scorpion, ED Abscess Antibiotic Treatment Only, ED Cellulitis Prescriptions: New mupirocin [mupirocin] 2 % ointment 1 applic topical TID 14 Days Qty: 1 0RF Rx Instructions: 14 days No Action metformin 500 MG tablet 2 mg PO BID amlodipine 2.5 MG tablet 1 tab PO DAILY citalopram 20 MG tablet 1 tab PO DAILY ramipril 10 mg capsule 10 mg PO BID Patient Comments: TAKE 1 CAPSULE BY MOUTH TWICE DAILY oxycodone-acetaminophen [Percocet] 5-325 mg tablet 1 tab PO Q6H PRN (Reason: pain) 3 Days Qty: 10 0RF oxycodone-acetaminophen [Percocet] 5-325 mg tablet 1 tab PO Q6H PRN (Reason: pain) 3 Days Qty: 10 0RF Primary Care Provider: oJse Gallo Referrals: Jose Gallo MD [Primary Care Provider] - Wound,Center [Non-Staff] - Activity Restrictions/Additional Instructions: Apply antibiotic ointment 3 times a day for the next 2 weeks. Call tomorrow to make an appointment with your PCP for the next 5 to 7 days for wound follow-up. Use warm compresses or heat to help continue drainage if it still will occur. Disposition Disposition: Home, Self Care Discharge Date/Time: 12/22/22 20:34
== END 2022-12-22 20:34 | disposition home or self-care (01) ==
PROVIDERS: Emergency Provider Emergency Medicine; PCP Internal Medicine; Visit Provider Emergency Medicine
DX: L02.91 Cutaneous abscess, unspecified (principal); E11.9 Type 2 diabetes mellitus without complications; I10 Essential (primary) hypertension; F17.210 Nicotine dependence, cigarettes, uncomplicated; S80.861A Insect bite (nonvenomous), right lower leg, initial encounter; W57.XXXA Bitten or stung by nonvenomous insect and other nonvenomous arthropods, initial encounter; F32.A Depression, unspecified; Z79.84 Long term (current) use of oral hypoglycemic drugs; Z79.899 Other long term (current) drug therapy
CPT/HCPCS: 99282

== ENCOUNTER 2023-08-27 19:16 | Emergency (ER) | payer BC, SELFPAY ==
[2023-08-27 19:19] VITALS: BP 147/88; PULSE 70; RESP 16; TEMP 36.6; O2SAT 96; BMI 43.0
--- NOTE | 2023-08-27 20:06 | CT_ITS ---
INDICATION: Pain EXAMINATION: CT ABDOMEN AND PELVIS WITHOUT CONTRAST - CT Abdomen And Pelvis W/O Contrast Injection TECHNIQUE: Helically acquired images were obtained of the abdomen and pelvis without oral or IV contrast. A radiation dose optimization technique was used for this scan. IV Contrast dosage and agent: None. Oral contrast: None. RADIATION DOSAGE (If Supplied By Facility): CTDIvol = ( 27.15 ) mGy, DLP = ( 1330.61 ) mGycm COMPARISON: 10/29/2021 FINDINGS: LOWER CHEST: Lung bases are clear. No cardiomegaly or pericardial effusion. LIVER: Liver is large, diffuse hepatic steatosis noted. No hepatic masses. No focal mass. GALLBLADDER AND BILIARY TREE: No calcified gallstones. No gallbladder distension or wall edema. No intra- or extrahepatic biliary ductal dilation. PANCREAS: No focal cystic or solid mass. SPLEEN: Normal size without focal cystic or solid mass. ADRENAL GLANDS: No nodules. KIDNEYS AND URETERS: Kidneys have unchanged configuration, there is a low-density structure in the LEFT kidney, measuring 3.2 x 2.3 cm consistent with a stable cyst. Small cyst is noted on the RIGHT kidney measuring approximately 1.7 x 1.1 cm. No calcifications or obstructive uropathy. No hydronephrosis. PERITONEUM: No ascites or free air. No other fluid collection. BOWEL: Large small bowel loops have normal configuration. No small bowel obstruction. Normal appendix noted. Diffuse diverticulosis involving the sigmoid colon however focal area soft tissue stranding particularly in the distal descending colon and mid to distal sigmoid colon consistent with mild diverticulitis. No peridiverticular abscess or bowel obstruction or free air. No stomach or bowel distension. LYMPH NODES: No enlarged mesenteric or retroperitoneal lymph nodes. VESSELS: Aorta is non-dilated. URINARY BLADDER: Unremarkable. REPRODUCTIVE ORGANS: No pelvic masses. ABDOMINAL WALL: No discrete abdominal or pelvic wall hernia. BONES: Diffuse lumbar spondylosis, vacuum phenomenon at L5-S1. No fractures canal stenosis or destructive bony process CT/Abdomen/Pelvis without Cont IMPRESSION: 1. Distal descending colon and sigmoid colon diverticulitis. No peridiverticular abscess, bowel obstruction or free air. 2. Normal appendix. 3. No small bowel obstruction. 4. Bilateral renal cysts, no calcifications or obstructive uropathy. 5. No evidence cholelithiasis. 6. Hepatic megaly and hepatic steatosis without hepatic masses. CRITICAL FINDINGS: Diverticulitis involving the distal descending colon and sigmoid colon. No free air Electronically Signed: Paul Gaines MD at 21:58 EDT ,
--- NOTE | 2023-08-27 20:08 | ED.VIS.GI ---
HPI HPI - GI History of Present Illness Chief Complaint: Abd Pain Narrative Narrative: 52-year-old female past medical history of previous diverticulitis, presents from urgent care with left lower quadrant/left flank pain that she has had for the last 3 to 4 days. She also has the feeling of obstipation. She states yesterday she took a MiraLAX, and is having small bowel movements. She has been having them all day. She also relates history of IBS. She denies any fevers or chills, no nausea or vomiting, no previous abdominal surgeries. She states that she would not receive medications from urgent care so she was told that she needed to come to the emergency department. [facility] Medical History Depression Diverticulitis Hypertension Home Medications citalopram 20 mg tablet 1 tab PO DAILY 06/15/18 [History Last Taken Unknown] metformin 500 mg tablet 1,000 mg PO BID 06/15/18 [History Last Taken Unknown] ramipril 10 mg capsule 10 mg PO BID 03/08/22 [History Last Taken Unknown] amlodipine 5 mg tablet 5 mg PO DAILY 08/27/23 [History Last Taken Unknown] ciprofloxacin HCl 500 mg tablet (Cipro) 500 mg PO BID #20 tabs 08/27/23 [Rx Last Taken Unknown] hydrochlorothiazide 12.5 mg capsule 25 mg PO DAILY 08/27/23 [History Last Taken Unknown] hydrocodone-acetaminophen 5-325mg 5mg-325mg 1 tab PO Q6H PRN PRN Pain 3 days #10 TABLETS 08/27/23 [Rx Last Taken Unknown] metronidazole 500 mg tablet 500 mg PO TID 10 days #30 tabs 08/27/23 [Rx Last Taken Unknown] Allergy/AdvReac Type Severity Reaction Status Date / Time amoxicillin AdvReac Rash Verified 08/27/23 19:17 Social History Smoking Status: Current every day smoker tobacco type: cigarettes substance use type: does not use ROS ROS ED ROS Narrative Constitutional: No fever, no chills. HEENT: No sore throat. No neck pain. No loss of vision. No rhinorrhea. Cardiovascular: No chest pain. No palpitations. No pedal edema. Respiratory: No cough, no shortness of breath. Abdominal: Left lower quadrant/left flank abdominal pain. No nausea. No vomiting. Obstipation/constipation Genitourinary: No dysuria. No hematuria. Musculoskeletal: No myalgias. No arthralgias. Neurologic: No headaches. No dizziness. No lightheadedness. Skin: No rash. No change in color. Psychiatric: No depression. No anxiety. EXAM Physical Exam Narrative Exam Narrative: Afebrile. Vital signs noted. HEENT: Normocephalic. Atraumatic. PERRL, EOMI. Neck soft and supple. No point tenderness or step off. Cardiovascular: Regular rate and rhythm. No murmurs, rubs, or gallops appreciated. Respiratory: No tachypnea. Lungs clear to auscultation bilaterally. Gastrointestinal: Abdomen soft, obese, with mild tenderness to palpation left lower quadrant/left flank with normoactive bowel sounds. No rebound or guarding. Neurological: Awake. Alert. Nonfocal, nonlateralizing. Skin: No rash. Normal color. No pallor. Musculoskeletal: No pedal edema. Full range of motion extremities. Const Vital Signs: 08/27/23 19:19 08/27/23 21:17 Temperature 98 F Temperature Source Temporal Pulse Rate 70 67 Respiratory Rate 16 16 Blood Pressure 147/88 H 147/97 H Blood Pressure Mean 107 113 Pulse Ox 96 97 Oxygen Delivery Method Room Air MDM MDM MDM Narrative Medical decision making narrative: In the differential diagnosis is irritable bowel syndrome exacerbation versus diverticulitis versus nonspecific abdominal pain versus ureterolithiasis. I reviewed her laboratory work and she has normal white count 9.7, hemoglobin normal at 13.7, platelet count normal at 277. Electrolyte panel is grossly unremarkable except for glucose elevated at 195 with a normal anion gap of 5. Urinalysis is negative for infection, there are 5 ketones. I do not feel antibiotics are indicated. However, I did receive a call from radiology to ensure that CT report was reviewed and available. In review of the radiology report, she has diverticulitis of the descending colon to the sigmoid colon without evidence of perforation or abscess. At this point in time, I feel she can be discharged to follow-up. She does not have a white count or fever so I do not feel she requires admission. She was written prescriptions for Cipro and Flagyl for 10 days, and for 10 tablets of Umbarger for analgesia. She was told to follow-up with her primary care provider in the next few days or return to the emergency department should she experience fever, increased pain as she was told of the risk of perforation and abscess development with diverticulitis. She acknowledges an understanding and is agreeable to discharge. Return instructions reviewed. Disposition discharged home in stable condition. History & Record Review Discussion w/independent historian: Patient Additional record(s) reviewed:: Prior ED visit Lab Data Attestation: I reviewed the patient's lab results. Labs: Laboratory Results - last 24 hr 08/27/23 20:25 WBC 9.7 RBC 5.22 Hgb 13.7 Hct 44.6 MCV 85.4 MCH 26.2 L MCHC 30.7 L RDW Std Deviation 41.6 RDW Coeff of Luz Maria 13.4 Plt Count 277 MPV 9.4 Immature Gran % (Auto) 1.800 H Neut % (Auto) 65.7 Lymph % (Auto) 20.0 [place] % (Auto) 9.3 Eos % (Auto) 2.3 Baso % (Auto) 0.9 Absolute Neuts (auto) 6.4 Absolute Lymphs (auto) 1.94 Nucleated RBC % 0 Sodium 136 Potassium 4.1 Chloride 100 Carbon Dioxide 31.0 Anion Gap 5 BUN 12 Creatinine 0.66 Estim Creat Clear Calc 141.09 Est GFR (MDRD) Af Amer 121 Est GFR (MDRD) Non-Af 100 BUN/Creatinine Ratio 18.2 Glucose 195 H Calcium 9.3 Urine Color Yellow Urine Clarity Clear Urine pH 7.0 Ur Specific [place] 1.005 Urine Protein 15 H Urine Glucose (UA) 100 H Urine Ketones 5 H Urine Occult Blood Negative Urine Nitrite Negative Urine Bilirubin Negative Urine Urobilinogen 1 H Ur Leukocyte Esterase 25 H Urine RBC 0 SEEN Urine WBC 0 SEEN Ur Squamous Epith Cells 0-5 SEEN Urine Bacteria 0 SEEN Urine Mucus 0 SEEN Radiography Diagnostic Testing: Clinical Impression(s) from Imaging Studies Abdomen/Pelvis CT 08/27/23 20:06 IMPRESSION: 1. Distal descending colon and sigmoid colon diverticulitis. No peridiverticular abscess, bowel obstruction or free air. 2. Normal appendix. 3. No small bowel obstruction. 4. Bilateral renal cysts, no calcifications or obstructive uropathy. 5. No evidence cholelithiasis. 6. Hepatic megaly and hepatic steatosis without hepatic masses. CRITICAL FINDINGS: Diverticulitis involving the distal descending colon and sigmoid colon. No free air Electronically Signed: Paul Gaines MD at 21:58 EDT , ADDENDUM: 08/27/232210 IMPRESSION: 1. Distal descending colon and sigmoid colon diverticulitis. No peridiverticular abscess, bowel obstruction or free air. 2. Normal appendix. 3. No small bowel obstruction. 4. Bilateral renal cysts, no calcifications or obstructive uropathy. 5. No evidence cholelithiasis. 6. Hepatic megaly and hepatic steatosis without hepatic masses. CRITICAL FINDINGS: Diverticulitis involving the distal descending colon and sigmoid colon. No free air N.B. : Jose Luis Simpson MD, confirmed on 08/27/2023 22:04:50 (ET) that the referring physician received the results and does not require a verbal communication. Electronically Signed: Paul Gaines MD at 21:58 EDT , Discharge Plan Triage Chief Complaint: Abd Pain ED Provider: Jose Luis Simpson Dx/Rx/DC Orders Clinical Impression: Diverticulitis, Hypertension Instructions: ED Diverticulitis Prescriptions: New ciprofloxacin HCl [Cipro] 500 mg tablet 500 mg PO BID Qty: 20 0RF metronidazole 500 mg tablet 500 mg PO TID 10 Days Qty: 30 0RF hydrocodone-acetaminophen 5-325 mg tablet 1 tab PO Q6H PRN PRN (Reason: Pain) 3 Days Qty: 10 0RF No Action metformin 500 MG tablet 1,000 mg PO BID citalopram 20 MG tablet 1 tab PO DAILY ramipril 10 mg capsule 10 mg PO BID Patient Comments: TAKE 1 CAPSULE BY MOUTH TWICE DAILY amlodipine 5 mg tablet 5 mg PO DAILY hydrochlorothiazide 12.5 mg capsule 25 mg PO DAILY Primary Care Provider: Jose Gallo Referrals: Jose Gallo MD [Primary Care Provider] - 3-5 Days if not improving Activity Restrictions/Additional Instructions: Medication as directed. Return with fever, increased pain, new or worsening symptoms. Disposition Disposition: Home, Self Care
[2023-08-27 20:29] LABS: Bacteria 0 SEEN /hpf (None Seen); Mucous, Urine 0 SEEN /hpf (<or=2+); Red Blood Cells-Urine 0 SEEN /hpf (0-5); White Blood Cells 0 SEEN /hpf (0-5)
[2023-08-27 20:31] LABS: Color, Urine Yellow (Yellow); Glucose, Dipstick 100 mg/dl (Normal); Ketone-Dipstick 5 mg/dl (Negative); Leukocyte Esterase-Dipstick 25 /ul (Negative); Nitrite-Dipstick Negative (Negative); Occult Blood-Urine Negative /ul (Negative); Protein-Dipstick 15 mg/dl (Negative); Specific Gravity, Urine 1.005 (1.002-1.030); Urine Bilirubin Dipstick Negative (Negative); Urine Clarity Clear (Clear); Urine Urobilinogen 1 mg/dl (Normal)
[2023-08-27 20:32] LABS: Absolute Lymphocyte Count 1.94 X10^3/uL (0.83-4.51); Absolute Neutrophil Count 6.4 X10^3/uL (2.0-7.7); Basophil# 0.09 X10^3/uL; Basophil% 0.9 % (0-1); Eosinophil# 0.22 X10^3/uL; Eosinophils% 2.3 % (0-5); Hematocrit 44.6 % (37-47); Hemoglobin 13.7 g/dL (12.0-15.0); Lymphocyte # 1.94 X10^3/ul (0.83-4.51); Mean Corp Hgb Conc 30.7 g/dL (32-36); Mean Corpuscular Hgb 26.2 pg (27.0-32.0); Mean Corpuscular Volume 85.4 fL (81-99); Mean Platelet Vol. 9.4 fl (6.2-12.0); Monocyte% 9.3 % (0-10); NRBC Flagged by Analyzer 0 % (0-5); Neutrophil # 6.39 X10^3/uL (2.7-7.7); Neutrophil % 65.7 % (47-70); Platelet Count 277 K/mm3 (150-450); RBC Distribution Width CV 13.4 % (11.6-14.6); RBC Distribution Width SD 41.6 fl (35.1-43.9); Red Blood Count 5.22 M/mm3 (4.2-5.4); White Blood Count 9.7 K/mm3 (4.4-11.0)
[2023-08-27 20:37] LABS: Squamous Epithelial Cells - UA 0-5 SEEN /hpf (5-10)
[2023-08-27 20:43] LABS: Anion Gap 5 (5-15); BUN 12 mg/dL (7-18); BUN/Creat Ratio 18.2 RATIO (10-20); Calcium,Total 9.3 mg/dL (8.5-10.1); Chloride 100 mmol/L (98-107); Creatinine, Serum 0.66 mg/dL (0.55-1.02); EST Glomerular Filtration Rate 100 mL/min (>60); Est Glom Filt Rate - Afr Amer 121 mL/min (>60); Estimated Creatinine Clearance 141.09 ml/min; Glucose 195 mg/dL (74-106); Potassium 4.1 mmol/L (3.5-5.1); Sodium Level 136 mmol/L (136-145)
[2023-08-27 21:17] VITALS: BP 147/97; PULSE 67; RESP 16; O2SAT 97
[2023-08-27] MEDS: Ciprofloxacin 500 MG Tablet PO (22:22)
[2023-08-27] MEDS: metroNIDAZOLE 500 MG Tablet PO (22:22)
[2023-08-27 22:28] VITALS: BP 147/97; PULSE 67; RESP 16; TEMP 36.5; O2SAT 97
--- OUTSIDE RECORDS SUMMARY | 2023-08-27 23:17 | XMS RPT_ITS | CCD ---
Author Name Unknown Address [address] [place] [address] Organization [facility] Care Team Providers Care Helicopter Officer Name Role Phone Sabino HARRIS, Jose Melendez Primary Care Provider [phone] Sabino HARRIS, Jose Melendez Primary Care Provider [phone] Rosa HARRIS, Raimundo Unavailable [phone] LUCRETIA CALIX Referring Unavailable BLANTON, JACKY Primary Care Unavailable SAMREEN MARQUES Admitting Unavailable SAMREEN MARQUES Attending Unavailable BLANTON, JACKY Primary Care Unavailable BLANTON, JACKY Primary Care Unavailable RAIMUNDO LEE Referring Unavailable RAIMUNDO LEE Attending Unavailable SABINO, JACKY Primary Care Unavailable RAIMUNDO LEE Referring Unavailable BLANTON, JACKY Primary Care Unavailable LUCRETIA CALIX Attending Unavailable RAIMUNDO LEE Referring Unavailable BLANTON, JACKY Primary Care Unavailable LUCRETIA CALIX Referring Unavailable BLANTON, JACKY Primary Care Unavailable LUCRETIA CALIX Referring Unavailable BLANTON, JACKY Primary Care Unavailable LUCRETIA CALIX Referring Unavailable BLANTON, JACKY Primary Care Unavailable RAIMUNDO LEE Referring Unavailable SELF Referring Unavailable SABINO, JACKY Primary Care Unavailable RAIMUNDO LEE Referring Unavailable RAIMUNDO LEE Attending Unavailable BLANTON, JACKY Primary Care Unavailable BLANTON, JACKY Primary Care Unavailable CLAUDETTE BARCENAS Attending Unavailable BLANTON, JACKY Referring Unavailable BLANTON, JACKY Primary Care Unavailable SUZANNE ROBLERO Attending Unavailable BLANTON, JACKY Primary Care Unavailable SUZANNE ROBLERO Referring Unavailable BLANTON, JACKY Primary Care Unavailable SUZANNE ROBLERO Attending Unavailable SUZANNE ROBLERO Referring Unavailable BLANTON, JACKY Primary Care Unavailable SAMREEN MARQUES Attending Unavailable BLANTON, JACKY Primary Care Unavailable SAMREEN MARQUES Referring Unavailable BLANTON, JACKY Primary Care Unavailable ABRAMOVICNora, RAIMUNDO Referring Unavailable BLANTON, JACKY Primary Care Unavailable ABRAMOVICH, RAIMUNDO Referring Unavailable BLANTON, JACKY Primary Care Unavailable ABRAMOVICH, RAIMUNDO Referring Unavailable BLANTON, JACKY Primary Care Unavailable ABRAMOVICH, RAIMUNDO Referring Unavailable BLANTON, JACKY Primary Care Unavailable BLANTON, JACKY Referring Unavailable BLANTON, JACKY Primary Care Unavailable WILMAN TAVERAS Referring Unavailable BLANTON, JACKY Primary Care Unavailable ABRAMOVICH, RAIMUNDO Referring Unavailable BLANTON, JACKY Primary Care Unavailable BLANTON, JACKY Primary Care Unavailable ABRAMOVICH, RAIMUNDO Referring Unavailable BLANTON, JACKY Primary Care Unavailable ABRAMOVICH, RAIMUNDO Referring Unavailable ABRAMOVICHRAIMUNDO Referring Unavailable BLANTON, JACKY Primary Care Unavailable BLANTON, JACKY Primary Care Unavailable LUCRETIA CALIX Referring Unavailable CLAUDETTE BACRENAS Attending Unavailable BLANTON, JACKY Referring Unavailable BLANTON, JACKY Primary Care Unavailable CLAUDETTE BARCENAS Referring Unavailable BLANTON, JACKY Primary Care Unavailable BLANTON, JOSE Melendez Primary Care Unavailable SELF Referring Unavailable BLANTON, JOSE Melendez Primary Care Unavailable BLANTON, JACKY Primary Care Unavailable CLAUDETTE BARCENAS Referring Unavailable ABRAMOVICNora, RAIMUNDO Attending Unavailable BLANTON, JACKY Primary Care Unavailable ABRAMOVICH, RAIMUNDO Referring Unavailable BLANTON, JACKY Primary Care Unavailable ABRAMOVICH, RAIMUNDO Referring Unavailable BLANTON, JACKY Primary Care Unavailable BALNTON, JACKY Primary Care Unavailable ABRAMOVICH, RAIMUNDO Referring Unavailable ABRAMOVICH, RAIMUNDO Referring Unavailable BLANTON, JACKY Primary Care Unavailable BLANTON, JACKY Primary Care Unavailable ABRAMOVICH, RAIMUNDO Referring Unavailable BLANTON, JACKY Primary Care Unavailable ABRAMOVICH, RAIMUNDO Referring Unavailable BLANTON, JACKY Primary Care Unavailable ABRAMOVICH, RAIMUNDO Referring Unavailable BLANTON, JACKY Primary Care Unavailable ABRAMOVICH, RAIMUNDO Referring Unavailable ABRAMOVICH, RAIMUNDO Referring Unavailable BLANTON, JACKY Primary Care Unavailable ABRAMOVICH, RAIMUNDO Referring Unavailable ABRAMOVICH, RAIMUNDO Attending Unavailable BLANTON, JACKY Primary Care Unavailable BLANTON, JACKY Primary Care Unavailable ABRAMOVICH, RAIMUNDO Referring Unavailable BLANTON, JACKY Primary Care Unavailable ABRAMOVICH, RAIMUNDO Referring Unavailable BLANTON, JACKY Primary Care Unavailable ABRAMOVICH, RAIMUNDO Referring Unavailable BLANTON, JACKY Primary Care Unavailable ABRAMOVICH, RAIMUNDO Referring Unavailable BLANTON, JACKY Primary Care Unavailable ABRAMOVICH, RAIMUNDO Referring Unavailable BLANTON, JACKY Primary Care Unavailable ABRAMOVICH, RAIMUNDO Referring Unavailable BLANTON, JACKY Primary Care Unavailable CLAUDETTE BARCENAS Attending Unavailable BLANTON, JACKY Primary Care Unavailable ABRAMOVICH, RAIMUNDO Referring Unavailable BLANTON, JACKY Primary Care Unavailable ABRAMOVICH, RAIMUNDO Referring Unavailable BLANTON, JACKY Primary Care Unavailable BLANTON, JACKY Primary Care Unavailable BLANTON, JACKY Primary Care Unavailable ANTWAN BARNETT Referring Unavailable BLANTON, JACKY Primary Care Unavailable ABRAMOVICH, RAIMUNDO Referring Unavailable BLANTON, JACKY Primary Care Unavailable ABRAMOVICH, RAIMUNDO Referring Unavailable BLANTON, JACKY Primary Care Unavailable ABRAMOVICH, RAIMUNDO Referring Unavailable BLANTON, JACKY Primary Care Unavailable ABRAMOVICH, RAIMUNDO Referring Unavailable BLANTON, JACKY Primary Care Unavailable ABRAMOVICH, RAIMUNDO Referring Unavailable Allergies Allergy Classification Reported Allergen(s) Allergy Type Date of Onset Reaction(s) Facility (20 sources) Amoxicillin; Translations: [AMOXICILLIN] Drug Allergy 07-20-2015 [facility] Medications Current Medications Medication Drug Class(es) Dates Sig (Normalized) Sig (Original) bisacodyl 5 mg delayed release oral tablet (1 source) Stimulant Laxative Start: 04-30-2022 End: 05-01-2022 Bisacodyl (DULCOLAX) 5 mg tab Use as directed for Miralax / Gatorade Bowel Prep Kit 4 tablet 0 04/30/2022 05/01/2022 Active Completed/Discontinued Medications Medication Drug Class(es) Dates Sig (Normalized) Sig (Original) [id number] 200 actuat albuterol 0.09 mg/actuat metered dose inhaler (20 sources) beta2-Adrenergic Agonist Start: 01-09-2023 take 2 puff(s) by inhalation every four hours as needed for wheezing albuterol HFA (PROVENTIL HFA, VENTOLIN HFA) 90 mcg/actuation inhaler Indications: Mild intermittent asthma without complication Inhale 2 Puffs as instructed every 4 hours as needed for wheezing/shortness of breath. 1 Each 2 01/09/2023 Active Problems Active Problems Problem Classification Problem Date Documented Date Episodic/Chronic Abdominal pain (1 source) Lower abdominal pain; Translations: [Lower abdominal pain, unspecified] Episodic Anxiety disorders (20 sources) Anxiety neurosis ; Translations: [Generalized anxiety disorder] Onset: 04-11-2015 04-11-2015 Chronic Chronic obstructive pulmonary disease and bronchiectasis (4 sources) Obstruction of lower respiratory tract; Translations: [Chronic obstructive pulmonary disease, unspecified] Onset: 04-11-2023 03-10-2023 Chronic Diabetes mellitus without complication (20 sources) Diabetes mellitus; Translations: [Type 2 diabetes mellitus without complications] Onset: 04-11-2015 04-11-2015 Chronic Essential hypertension (20 sources) Hypertensive disorder; Translations: [Essential (primary) hypertension] Onset: 04-11-2015 04-11-2015 Chronic Fever of unknown origin (2 sources) Fever; Translations: [Fever, unspecified] Episodic Influenza (1 source) Influenza due to Influenza A virus; Translations: [Influenza due to other identified influenza virus with other respiratory manifestations] 08-15-2023 Episodic Menopausal disorders (20 sources) Postmenopausal bleeding; Translations: [Postmenopausal bleeding] Onset: 11-29-2022 Chronic Menstrual disorders (20 sources) Menorrhagia; Translations: [Excessive and frequent menstruation with regular cycle] Onset: 07-20-2015 07-20-2015 Chronic Mood disorders (20 sources) Depressive disorder; Translations: [Depressive disorder] Onset: 07-25-2015 07-25-2015 Chronic Other eye disorders (1 source) Disorder of eye; Translations: [Unspecified disorder of eye and adnexa] Episodic Other female genital disorders (1 source) Abnormal uterine bleeding; Translations: [Abnormal uterine and vaginal bleeding, unspecified] 01-22-2023 Chronic Other liver diseases (20 sources) Steatosis of liver; Translations: [Fatty (change of) liver, not elsewhere classified] Onset: 03-01-2019 03-01-2019 Chronic Other lower respiratory disease (1 source) Cough; Translations: [Acute cough] Episodic Other lower respiratory disease (1 source) Rib pain; Translations: [Pleurodynia] Episodic Other lower respiratory disease (1 source) Hypoxemia; Translations: [Hypoxemia] 03-10-2023 Episodic Other lower respiratory disease (1 source) Snoring; Translations: [Snoring] 03-10-2023 Episodic Other lower respiratory disease (1 source) Dyspnea; Translations: [Shortness of breath] 04-07-2023 Episodic Other lower respiratory disease (1 source) Hypoxia; Translations: [Hypoxemia] 04-07-2023 Episodic Other lower respiratory disease (1 source) Snoring; Translations: [Snoring] Onset: 04-20-2023 Episodic Other nutritional; endocrine; and metabolic disorders (20 sources) Body mass index 40+ - severely obese; Translations: [Morbid (severe) obesity due to excess calories] Onset: 11-20-2017 11-20-2017 Chronic Other nutritional; endocrine; and metabolic disorders (1 source) Morbid obesity; Translations: [Morbid (severe) obesity due to excess calories] 03-10-2023 Chronic Other screening for suspected conditions (not mental disorders or infectious disease) (3 sources) Patient encounter status; Translations: [Encounter for screening mammogram for malignant neoplasm of breast] Episodic Other upper respiratory infections (1 source) Sore throat symptom; Translations: [Acute pharyngitis, unspecified] Episodic Pulmonary heart disease (2 sources) Pulmonary hypertension; Translations: [Pulmonary hypertension, unspecified] Onset: 03-11-2023 03-10-2023 Chronic Screening and history of mental health and substance abuse codes (1 source) Ex-smoker; Translations: [Personal history of nicotine dependence] 03-10-2023 Episodic Past or Other Problems Problem Classification Problem Date Documented Da te Episodic/Chronic Genitourinary symptoms and ill-defined conditions (20 sources) Proteinuria; Translations: [Proteinuria, unspecified] Onset: 06-30-2019 06-30-2019 Episodic Heart valve disorders (20 sources) Heart murmur; Translations: [Cardiac murmur, unspecified] Onset: 04-01-2022 Episodic Joint disorders and dislocations; trauma-related (20 sources) Acute tear of medial meniscus of right knee; Translations: [Other tear of medial meniscus, current injury, right knee, subsequent encounter] Onset: 05-04-2018 05-04-2018 Episodic Open wounds of extremities (20 sources) Injury of lower extremity; Translations: [Unspecified open wound, right lower leg, initial encounter] Onset: 12-30-2022 01-15-2023 Episodic Other hematologic conditions (20 sources) Erythrocytosis; Translations: [Secondary polycythemia] Onset: 02-10-2023 Episodic Other hematologic conditions (1 source) Secondary polycythemia; Translations: [Polycythemia] Onset: 02-10-2023 Episodic Other lower respiratory disease (20 sources) Chronic cough; Translations: [Chronic cough] Onset: 01-15-2023 01-15-2023 Episodic Other lower respiratory disease (2 sources) Hypoxemia; Translations: [Hypoxemia] Onset: 03-11-2023 Episodic Residual codes; unclassified (20 sources) Tobacco user; Translations: [Tobacco use] Onset: 05-22-2018 05-22-2018 Episodic Residual codes; unclassified (20 sources) Edema; Translations: [Edema, unspecified] Onset: 01-15-2023 01-15-2023 Episodic Residual codes; unclassified (1 source) Edema, unspecified; Translations: [Swelling] Onset: 10-12-2022 Episodic Results Test Name Value Interpretation Reference Range Facil ity Vital Signs Date Time Vital Sign Value Performing Clinician Tono gaxiola 08-15-2023 11:21-0500 Body temperature 99.7 [degF] Ish Lopes APRN.CNP Work Phone: [facility] 08-15-2023 11:21-0500 Body weight 130.82 kg Ish Lopes APRN.CNP Work Phone: [facility] 08-15-2023 11:21-0500 Diastolic blood pressure 80 mm[Hg] Ish Lopes APRN.CNP Work Phone: [facility] 08-15-2023 11:21-0500 Heart rate 72 /min Ish Lopes APRN.CNP Work Phone: [facility] 08-15-2023 11:21-0500 Respiratory rate 18 /min Ish Marianne STEREOPLOTTER OPERATOR.LEAVE SPECIALIST Work Phone: [facility] 08-15-2023 11:21-0500 SaO2% (BldA) [Mass fraction] 95 % Ish Marianne STEREOPLOTTER OPERATOR.LEAVE SPECIALIST Work Phone: [facility] 08-15-2023 11:21-0500 Systolic blood pressure 148 mm[Hg] Ish Marianne STEREOPLOTTER OPERATOR.LEAVE SPECIALIST Work Phone: [facility] 07-31-2023 14:01-0500 Diastolic blood pressure 78 mm[Hg] Treatment Wstr Work Phone: [facility] 07-31-2023 14:01-0500 Heart rate 76 /min Treatment Wstr Work Phone: [facility] 07-31-2023 14:01-0500 Systolic blood pressure 104 mm[Hg] Treatment Wstr Work Phone: [facility] 07-31-2023 13:41-0500 Body temperature 98.2 [degF] Treatment Wstr Work Phone: [facility] 07-31-2023 13:24-0500 Body temperature 98.2 [degF] Raimundo Lee MD Work Phone: [facility] 07-31-2023 13:24-0500 Body weight 129.73 kg Raimundo Lee MD Work Phone: [facility] 07-31-2023 13:24-0500 Diastolic blood pressure 76 mm[Hg] Raimundo Lee MD Work Phone: [facility] 07-31-2023 13:24-0500 Heart rate 69 /min Raimundo Lee MD Work Phone: [facility] 07-31-2023 13:24-0500 SaO2% (BldA) [Mass fraction] 94 % Raimundo Lee MD Work Phone: [facility] 07-31-2023 13:24-0500 Systolic blood pressure 119 mm[Hg] Raimundo Lee MD Work Phone: [facility] 05-29-2023 13:43-0500 Diastolic blood pressure 75 mm[Hg] Treatment Wstr Work Phone: [facility] 05-29-2023 13:43-0500 Heart rate 72 /min Treatment Wstr Work Phone: [facility] 05-29-2023 13:43-0500 Respiratory rate 18 /min Treatment Wstr Work Phone: [facility] 05-29-2023 13:43-0500 Systolic blood pressure 132 mm[Hg] Treatment Wstr Work Phone: [facility] 05-29-2023 13:00-0500 Body temperature 97.59 [degF] Treatment Wstr Work Phone: [facility] 05-29-2023 13:00-0500 SaO2% (BldA) [Mass fraction] 94 % Treatment Wstr Work Phone: [facility] 05-15-2023 14:48-0500 Body temperature 97.81 [degF] Treatment Wstr Work Phone: [facility] 05-15-2023 14:48-0500 Diastolic blood pressure 75 mm[Hg] Treatment Wstr Work Phone: [facility] 05-15-2023 14:48-0500 Heart rate 64 /min Treatment Wstr Work Phone: [facility] 05-15-2023 14:48-0500 Respiratory rate 16 /min Treatment Wstr Work Phone: [facility] 05-15-2023 14:48-0500 Systolic blood pressure 116 mm[Hg] Treatment Wstr Work Phone: [facility] 05-01-2023 13:44-0500 Diastolic blood pressure 58 mm[Hg] Treatment Wstr Work Phone: [facility] 05-01-2023 13:44-0500 Heart rate 67 /min Treatment Wstr Work Phone: [facility] 05-01-2023 13:44-0500 Systolic blood pressure 137 mm[Hg] Treatment Wstr Work Phone: [facility] 04-24-2023 13:57-0500 Diastolic blood pressure 78 mm[Hg] Treatment Wstr Work Phone: [facility] 04-24-2023 13:57-0500 Heart rate 72 /min Treatment Wstr Work Phone: [facility] 04-24-2023 13:57-0500 Systolic blood pressure 138 mm[Hg] Treatment Wstr Work Phone: [facility] 04-10-2023 11:01-0400 Diastolic blood pressure 84 mm[Hg] Treatment Wstr Work Phone: [facility] 04-10-2023 11:01-0400 Heart rate 92 /min Treatment Wstr Work Phone: [facility] 04-10-2023 11:01-0400 Systolic blood pressure 124 mm[Hg] Treatment Wstr Work Phone: [facility] 04-10-2023 10:49-0400 Body temperature 98.01 [degF] Treatment Wstr Work Phone: [facility] 04-07-2023 10:42-0400 Diastolic blood pressure 76 mm[Hg] Claudette Older STEREOPLOTTER OPERATOR.LEAVE SPECIALIST Work Phone: [facility] 04-07-2023 10:42-0400 Systolic blood pressure 128 mm[Hg] Claudette Older STEREOPLOTTER OPERATOR.LEAVE SPECIALIST Work Phone: [facility] 04-07-2023 10:18-0400 Body weight 123.38 kg Claudette Older STEREOPLOTTER OPERATOR.LEAVE SPECIALIST Work Phone: [facility] 04-07-2023 10:18-0400 Heart rate 64 /min Claudette Older STEREOPLOTTER OPERATOR.LEAVE SPECIALIST Work Phone: [facility] 04-07-2023 10:18-0400 Respiratory rate 16 /min Claudette Older STEREOPLOTTER OPERATOR.LEAVE SPECIALIST Work Phone: [facility] 04-07-2023 10:18-0400 SaO2% (BldA) [Mass fraction] 90 % Claudette Older STEREOPLOTTER OPERATOR.LEAVE SPECIALIST Work Phone: [facility] 04-03-2023 10:39-0400 Diastolic blood pressure 70 mm[Hg] Treatment Wstr Work Phone: [facility] 04-03-2023 10:39-0400 Heart rate 64 /min Treatment Wstr Work Phone: [facility] 04-03-2023 10:39-0400 Systolic blood pressure 129 mm[Hg] Treatment Wstr Work Phone: [facility] 04-03-2023 10:14-0400 Body temperature 98.6 [degF] Treatment Wstr Work Phone: [facility] 04-03-2023 10:14-0400 Respiratory rate 22 /min Treatment Wstr Work Phone: [facility] 03-27-2023 11:29-0400 Diastolic blood pressure 83 mm[Hg] Treatment Wstr Work Phone: [facility] 03-27-2023 11:29-0400 Heart rate 65 /min Treatment Wstr Work Phone: [facility] 03-27-2023 11:29-0400 SaO2% (BldA) [Mass fraction] 96 % Treatment Wstr Work Phone: [facility] 03-27-2023 11:29-0400 Systolic blood pressure 122 mm[Hg] Treatment Wstr Work Phone: [facility] 03-27-2023 11:06-0400 Body temperature 98.1 [degF] Treatment Wstr Work Phone: [facility] 03-27-2023 11:06-0400 Respiratory rate 18 /min Treatment Wstr Work Phone: [facility] 03-10-2023 12:45-0400 Body height 170.2 cm Lucretia Calix MD Work Phone: [facility] 03-10-2023 12:45-0400 Body weight 122.2 kg Lucretia Calix MD Work Phone: [facility] 03-10-2023 12:45-0400 Diastolic blood pressure 90 mm[Hg] Lucretia Calix MD Work Phone: [facility] 03-10-2023 12:45-0400 Heart rate 70 /min Lucretia Calix MD Work Phone: [facility] 03-10-2023 12:45-0400 Respiratory rate 16 /min Lucretia Calix MD Work Phone: [facility] 03-10-2023 12:45-0400 SaO2% (BldA) [Mass fraction] 88 % Lucretia Calix MD Work Phone: [facility] 03-10-2023 12:45-0400 Systolic blood pressure 136 mm[Hg] Lucretia Calix MD Work Phone: [facility] 03-06-2023 10:15-0400 Diastolic blood pressure 79 mm[Hg] Treatment Wstr Work Phone: [facility] 03-06-2023 10:15-0400 Heart rate 65 /min Treatment Wstr Work Phone: [facility] 03-06-2023 10:15-0400 Respiratory rate 18 /min Treatment Wstr Work Phone: [facility] 03-06-2023 10:15-0400 Systolic blood pressure 120 mm[Hg] Treatment Wstr Work Phone: [facility] 03-06-2023 09:28-0400 Body height 169.8 cm Raimundo Lee MD Work Phone: [facility] 03-06-2023 09:28-0400 Body temperature 99 [degF] Raimundo Lee MD Work Phone: [facility] 03-06-2023 09:28-0400 Body weight 122.24 kg Raimundo Lee MD Work Phone: [facility] 03-06-2023 09:28-0400 Diastolic blood pressure 92 mm[Hg] Raimundo Lee MD Work Phone: [facility] 03-06-2023 09:28-0400 Heart rate 64 /min Raimundo Lee MD Work Phone: [facility] 03-06-2023 09:28-0400 SaO2% (BldA) [Mass fraction] 91 % Raimundo Lee MD Work Phone: [facility] 03-06-2023 09:28-0400 Systolic blood pressure 150 mm[Hg] Raimudno Lee MD Work Phone: [facility] 02-27-2023 09:45-0400 Diastolic blood pressure 83 mm[Hg] Treatment Wstr Work Phone: [facility] 02-27-2023 09:45-0400 Heart rate 68 /min Treatment Wstr Work Phone: [facility] 02-27-2023 09:45-0400 Systolic blood pressure 139 mm[Hg] Treatment Wstr Work Phone: [facility] 02-27-2023 09:00-0400 Body temperature 98.8 [degF] Treatment Wstr Work Phone: [facility] 02-20-2023 15:27-0400 Diastolic blood pressure 70 mm[Hg] Treatment Wstr Work Phone: [facility] 02-20-2023 15:27-0400 Heart rate 64 /min Treatment Wstr Work Phone: [facility] 02-20-2023 15:27-0400 Systolic blood pressure 120 mm[Hg] Treatment Wstr Work Phone: [facility] 02-20-2023 15:04-0400 Body temperature 97.9 [degF] Treatment Wstr Work Phone: [facility] 02-13-2023 10:10-0400 Body temperature 98.1 [degF] Treatment Wstr Work Phone: [facility] 02-13-2023 10:10-0400 Diastolic blood pressure 84 mm[Hg] Treatment Wstr Work Phone: [facility] 02-13-2023 10:10-0400 Heart rate 64 /min Treatment Wstr Work Phone: [facility] 02-13-2023 10:10-0400 Respiratory rate 16 /min Treatment Wstr Work Phone: [facility] 02-13-2023 10:10-0400 Systolic blood pressure 129 mm[Hg] Treatment Wstr Work Phone: [facility] 02-13-2023 09:00-0400 SaO2% (BldA) [Mass fraction] 97 % Treatment Wstr Work Phone: [facility] 02-10-2023 15:00-0400 Body height 167.6 cm Raimundo Lee MD Work Phone: [facility] 02-10-2023 15:00-0400 Body temperature 97.2 [degF] Raimundo Lee MD Work Phone: [facility] 02-10-2023 15:00-0400 Body weight 122.92 kg Raimundo Lee MD Work Phone: [facility] 02-10-2023 15:00-0400 Diastolic blood pressure 84 mm[Hg] Raimundo Lee MD Work Phone: [facility] 02-10-2023 15:00-0400 Heart rate 76 /min Raimundo Lee MD Work Phone: [facility] 02-10-2023 15:00-0400 SaO2% (BldA) [Mass fraction] 91 % Raimundo Lee MD Work Phone: [facility] 02-10-2023 15:00-0400 Systolic blood pressure 144 mm[Hg] Raimundo Lee MD Work Phone: [facility] 02-03-2023 10:57-0400 Body weight 122.92 kg Claudette Older STEREOPLOTTER OPERATOR.LEAVE SPECIALIST Work Phone: [facility] 02-03-2023 10:57-0400 Diastolic blood pressure 86 mm[Hg] Claudette Older STEREOPLOTTER OPERATOR.LEAVE SPECIALIST Work Phone: [facility] 02-03-2023 10:57-0400 Heart rate 78 /min Claudette Older STEREOPLOTTER OPERATOR.LEAVE SPECIALIST Work Phone: [facility] 02-03-2023 10:57-0400 Respiratory rate 18 /min Claudette Older STEREOPLOTTER OPERATOR.LEAVE SPECIALIST Work Phone: [facility] 02-03-2023 10:57-0400 Systolic blood pressure 134 mm[Hg] Claudette Older STEREOPLOTTER OPERATOR.LEAVE SPECIALIST Work Phone: [facility] 01-19-2023 10:47-0400 Body temperature 98.8 [degF] Holley Eula STEREOPLOTTER OPERATOR.LEAVE SPECIALIST Work Phone: [facility] 01-19-2023 10:47-0400 Body weight 123.83 kg Holley Forde STEREOPLOTTER OPERATOR.LEAVE SPECIALIST Work Phone: [facility] [facility] 01-19-2023 10:47-0400 Diastolic blood pressure 80 mm[Hg] Holley Eula STEREOPLOTTER OPERATOR.LEAVE SPECIALIST Work Phone: [facility] 01-19-2023 10:47-0400 Heart rate 72 /min Holley Eula STEREOPLOTTER OPERATOR.LEAVE SPECIALIST Work Phone: [facility] 01-19-2023 10:47-0400 Respiratory rate 18 /min Holley Eula STEREOPLOTTER OPERATOR.LEAVE SPECIALIST Work Phone: [facility] 01-19-2023 10:47-0400 SaO2% (BldA) [Mass fraction] 94 % Holleymesfin Forde STEREOPLOTTER OPERATOR.LEAVE SPECIALIST Work Phone: [facility] 01-19-2023 10:47-0400 Systolic blood pressure 138 mm[Hg] Holley Huitronk STEREOPLOTTER OPERATOR.LEAVE SPECIALIST Work Phone: [facility] 11-29-2022 09:33-0400 Body weight 122.92 kg Suzanne Roblero STEREOPLOTTER OPERATOR.CNM Work Phone: [facility] 11-29-2022 09:33-0400 Diastolic blood pressure 72 mm[Hg] Suzanne Roblero STEREOPLOTTER OPERATOR.CNM Work Phone: [facility] 11-29-2022 09:33-0400 Systolic blood pressure 138 mm[Hg] Suzanne Roblero STEREOPLOTTER OPERATOR.CNM Work Phone: [facility] 08-24-2022 12:12-0500 Body temperature 98.01 [degF] Holley Huitronk STEREOPLOTTER OPERATOR.LEAVE SPECIALIST Work Phone: [facility] 08-24-2022 12:12-0500 Body weight 123.83 kg Holleymesfin Huitronk STEREOPLOTTER OPERATOR.LEAVE SPECIALIST Work Phone: [facility] 08-24-2022 12:12-0500 Diastolic blood pressure 104 mm[Hg] Holley Eula STEREOPLOTTER OPERATOR.LEAVE SPECIALIST Work Phone: [facility] 08-24-2022 12:12-0500 Heart rate 70 /min Holley Huitronk STEREOPLOTTER OPERATOR.LEAVE SPECIALIST Work Phone: [facility] 08-24-2022 12:12-0500 Respiratory rate 18 /min Holley Huitronk STEREOPLOTTER OPERATOR.LEAVE SPECIALIST Work Phone: [facility] 08-24-2022 12:12-0500 SaO2% (BldA) [Mass fraction] 95 % Holleymesfin Huitronk STEREOPLOTTER OPERATOR.LEAVE SPECIALIST Work Phone: [facility] 08-24-2022 12:12-0500 Systolic blood pressure 150 mm[Hg] Holley Huitronk STEREOPLOTTER OPERATOR.LEAVE SPECIALIST Work Phone: [facility] 08-02-2022 11:34-0500 Diastolic blood pressure 81 mm[Hg] Claudette Older STEREOPLOTTER OPERATOR.LEAVE SPECIALIST Work Phone: [facility] 08-02-2022 11:34-0500 Heart rate 65 /min Claudette Older STEREOPLOTTER OPERATOR.LEAVE SPECIALIST Work Phone: [facility] 08-02-2022 11:34-0500 Systolic blood pressure 143 mm[Hg] Claudette Older STEREOPLOTTER OPERATOR.LEAVE SPECIALIST Work Phone: [facility] 08-02-2022 11:11-0500 Body weight 122.02 kg Claudette Older STEREOPLOTTER OPERATOR.LEAVE SPECIALIST Work Phone: [facility] 08-02-2022 11:11-0500 Respiratory rate 18 /min Claudette Older STEREOPLOTTER OPERATOR.LEAVE SPECIALIST Work Phone: [facility] 04-30-2022 09:47-0500 Diastolic blood pressure 80 mm[Hg] Claudette Older STEREOPLOTTER OPERATOR.LEAVE SPECIALIST Work Phone: [facility] 04-30-2022 09:47-0500 Heart rate 72 /min Claudette Older STEREOPLOTTER OPERATOR.LEAVE SPECIALIST Work Phone: [facility] 04-30-2022 09:47-0500 Systolic blood pressure 136 mm[Hg] Claudette Older STEREOPLOTTER OPERATOR.LEAVE SPECIALIST Work Phone: [facility] 04-30-2022 09:17-0500 Body weight 116.57 kg Claudette Older STEREOPLOTTER OPERATOR.LEAVE SPECIALIST Work Phone: [facility] 04-30-2022 09:17-0500 Respiratory rate 18 /min Claudette Older STEREOPLOTTER OPERATOR.LEAVE SPECIALIST Work Phone: [facility] 04-02-2022 19:29-0400 Body temperature 98.29 [degF] Antwan Barnett APRN.LEAVE SPECIALIST Work Phone: [facility] 04-02-2022 19:29-0400 Body weight 118.66 kg Antwan Barnett APRN.LEAVE SPECIALIST Work Phone: [facility] 04-02-2022 19:29-0400 Diastolic blood pressure 82 mm[Hg] Antwan Barnett APRN.LEAVE SPECIALIST Work Phone: [facility] 04-02-2022 19:29-0400 Heart rate 71 /min Antwan Barnett APRN.LEAVE SPECIALIST Work Phone: [facility] 04-02-2022 19:29-0400 Respiratory rate 16 /min Antwan Barnett APRN.LEAVE SPECIALIST Work Phone: [facility] 04-02-2022 19:29-0400 SaO2% (BldA) [Mass fraction] 96 % Antwan Barnett APRN.LEAVE SPECIALIST Work Phone: [facility] 04-02-2022 19:29-0400 Systolic blood pressure 142 mm[Hg] Antwan Edin STEREOPLOTTER OPERATOR.LEAVE SPECIALIST Work Phone: [facility] 03-13-2022 11:11-0400 Body temperature 98.91 [degF] Epi Morris MD Work Phone: [facility] 03-13-2022 [id number] Body weight 117.94 kg Epi Morris MD Work Phone: [facility] 03-13-2022 11:11-0400 Diastolic blood pressure 90 mm[Hg] Epi Morris MD Work Phone: [facility] 03-13-2022 11:11-0400 Heart rate 70 /min Epi Morris MD Work Phone: [facility] 03-13-2022 [id number] Respiratory rate 18 /min Epi Morris MD Work Phone: [facility] 03-13-2022 11:11-0400 SaO2% (BldA) [Mass fraction] 94 % Epi Morris MD Work Phone: [facility] 03-13-2022 [id number] Systolic blood pressure 146 mm[Hg] Epi Morris MD Work Phone: [facility] 10-29-2021 14:19-0400 Body temperature 99.9 [degF] Holley Forde STEREOPLOTTER OPERATOR.LEAVE SPECIALIST Work Phone: [facility] 10-29-2021 14:19-0400 Body weight 122.65 kg Holley Forde STEREOPLOTTER OPERATOR.LEAVE SPECIALIST Work Phone: [facility] 10-29-2021 14:19-0400 Diastolic blood pressure 82 mm[Hg] Holley Eula STEREOPLOTTER OPERATOR.LEAVE SPECIALIST Work Phone: [facility] 10-29-2021 14:19-0400 Heart rate 85 /min Holley Eula STEREOPLOTTER OPERATOR.LEAVE SPECIALIST Work Phone: [facility] 10-29-2021 14:19-0400 Respiratory rate 18 /min Holley Eula STEREOPLOTTER OPERATOR.LEAVE SPECIALIST Work Phone: [facility] 10-29-2021 14:19-0400 SaO2% (BldA) [Mass fraction] 96 % Holley Forde APRN.CNP Work Phone: [facility] 10-29-2021 14:19-0400 Systolic blood pressure 132 mm[Hg] Holley Forde APRN.CNP Work Phone: [facility] Encounters Encounter Date Encounter Type Care Provider Facility Start: 08-25-2023 Refill Jose stoner MD Work Phone: [facility] Procedures Date Procedure Procedure Detail Performing Clinician Start: 08-15-2023 INFLUENZA A&B MOLECULAR (POC) Ish Lopes APRN.LEAVE SPECIALIST Work Phone: Start: 04-11-2023 Co diffusing elisabeth E liliana Calix MD Work Phone: Start: 03-11-2023 Echocardiography JOSE BLANTON Start: 02-24-2023 Ct abdomen & pelvis w/contrast material Raimundo Lee MD Work Phone: Start: 02-24-2023 Ct thorax w/contrast material Raimundo Lee MD Work Phone: Start: 11-29-2022 Us transvaginal Suzanne Roblero APRN.CNM Work Phone: Start: 04-02-2022 STREP A MOLECULAR (POC) Antwan Barnett APRN.LEAVE SPECIALIST Work Phone: Start: 10-29-2021 Urnls dip stick/tabl et rgnt auto w/o microscopy [facility] Provider Start: 11-09-2020 Mammography Sharmin austin LPN Plan of Treatment Date Care Activity Detail Author Start: 11-09-2025 HPV TESTING HPV TESTING [facility] Start: 11-09-2025 PAP TESTING PAP TESTING [facility] Start: 11-09-2025 Screening for malign ant neoplasm of cervix [facility] Start: 07-25-2025 Urine microalbumin profile [facility] Start: 07-31-2024 BP Controlled (<130/80) BP Controlle d (<130/80) [facility] Start: 04-07-2024 Annual PCP Team Heading Pinner trini Disease Visit Annual PCP Team Chronic Disease Visit [facility] Start: 04-07-2024 BP Controlled (<130/80) BP Controlle d (<130/80) [facility] Start: 04-07-2024 Covid-19 Vaccine (#1) Covid-19 Vacci ne (#1) [facility] Immunizations Immunization Date Immunization Notes Care Provider Fa daniellety 06-29-2019 influenza virus vacc ine, unspecified formulation Treatment Wstr Work Phone: [facility] 07-25-2015 tetanus toxoid, redu lana diphtheria toxoid, and acellular pertussis vaccine, adsorbed Sharmin Paulino NURSES' ASSOCIATION COUNSELOR [facility] 04-11-2015 influenza, injectabl e, quadrivalent, contains preservative Sharmin Paulino NURSES' ASSOCIATION COUNSELOR [facility] Work Phone: 04-11-2015 pneumococcal polysaccharide vaccine, 23 valent Sharmin Paulino NURSES' ASSOCIATION COUNSELOR [facility] Work Phone: Payers Date Payer Category Payer Unknown [facility] [id number] 2023-Present [phone] [address] [place] [address] [facility] [id number] 2023 Unknown [id number] Social History Date Type Detail Facility Start: 01-02-2011 End: 02-10-2023 Tobacco smoking status ORIS Smokes tobacco daily [facility] End: 02-26-2023 History of tobacco use Cigarette Smoker [facility] Start: 01-02-2011 End: 10-30-2022 Cigarettes smoked current (pack per day) - Reported 0.5 [facility] Start: 01-02-2011 End: 03-10-2023 Tobacco use and exposure Smokeless tobacco non-user [facility] Start: 05-16-2021 End: 02-10-2023 Alcohol intake Current drinker of alcohol (finding) [facility] Start: 07-25-2015 History SDOH Alcohol Comment 1 drink per year [facility] Start: 1970 Sex Assigned At Not on file [facility] Start: 10-19-2021 End: 04-02-2022 Exposure to SARS-CoV-2 (event) Not sure [facility] Work Phone: Start: 10-30-2022 End: 11-29-2022 Tobacco use panel [facility] Adult Depression Screening Assessment 0 [facility] Start: 02-10-2023 Tobacco Comment Pt has cut katlin k to 1/2-1 pack daily. [facility] Start: 03-06-2023 End: 03-10-2023 Tobacco smoking status NHIS Ex-smoker [facility] End: 02-26-2023 History of tobacco use Current smoker [facility] Start: 03-10-2023 End: 08-15-2023 Alcohol intake Ex-drinker (finding) [facility] Start: 03-10-2023 Tobacco Comment Pt has cut katlin k to 1/2-1 pack daily. Started at age 15 [facility] Clinical Notes 07-25-2015 to 08-25-2023 Telephone Encounter - Lalita Domínguez - 08/25/2023 9:10 AM Ish Boland APRN.LEAVE SPECIALIST - 08/15/2023 11:29 AM Raimundo Vazquez MD - 07/31/2023 1:33 PM ESTPatient Instructions Note Date & Type Note Facility 08-25-2023 Miscellaneous Notes Patient has been identified by name and date of : Yes, Provider Jose Blanton MD Date 08/25/2023 Time 9:13 am Patient phones for refill(s): Requested Prescriptions Pending Prescriptions Disp Refills metFORMIN (GLUCOPHAGE) 500 mg tablet 360 tablet 2 Sig: Take 2 tablets by mouth two times a day with meals. Date of last office visit in primary care: 04/07/2023 Date of next office visit in primary care: Visit date not found Please advise. Thank you. Lalita Adams. documented in this encounter [facility] 08-15-2023 Note [facility] 08-15-2023 History of Presen t illness Narrative Subjective HPI Nontoxic-appearing female presents urgent care chief plaint flulike symptoms. Duration of symptoms 1 day. Associated symptoms cough sore throat fatigue body aches chills fever shortness of breath with coughing. Has been sick 3 days prior to her symptoms starting. His symptoms are similar. No OTC medication use little success. Most bothersome symptom is fatigue and fever. Denies any productive cough chest pain shortness of breath currently. Hemoptysis pleuritic pain nausea vomiting abdominal pain or change in bowel or bladder habits. Past medical history prescription medications allergies reviewed. .Patient presents with: Cough: Sore throat, cough, and sob x 1 day PAST MEDICAL HISTORY Diagnosis Date Acute medial meniscal tear, right, subsequent encounter 05/04/2018 Added automatically from request for surgery [id number] Anxiety neurosis 04/11/2015 Asthma Depressive disorder 07/25/2015 Diabetes mellitus (HCC) 04/11/2015 Diverticulitis 04/11/2015 Two episodes of diverticulitis, 12 years ago (hospitalized), and then 6 years ago. Colon exam with polyps ? 5 years ago. HTN (hypertension) 04/11/2015 Iron deficiency anemia due to chronic blood loss 07/25/2015 Menorrhagia 07/20/2015 Morbid obesity (HCC) Polycythemia PAST SURGICAL HISTORY Procedure Laterality Date ARTHRS KNE SURG W/MENISCECTOMY MED/LAT W/SHVG Right 06/12/2018 Right knee arthroscopic medial menisectomy, medial and PF chondroplasties COLONOSCOPY FLX DX W/COLLJ SPEC WHEN PFRMD 2009 Colonoscopy ENDOMETRIAL BX W/WO ENDOCERVIX BX W/O DILAT SPX 07/03/2015 neg NEUROPLASTY &/TRANSPOS MEDIAN NRV CARPAL TUNNE Right Carpal tunnel decomp TUBAL LIGATION, 1993 ALLERGIES Amoxicillin MEDICATIONS ramipril (ALTACE) 10 mg capsule Take 1 capsule by mouth two times a day. metFORMIN (GLUCOPHAGE) 500 mg tablet Take 2 tablets by mouth twice daily with meals. citalopram (CELEXA) 20 mg tablet Take 1 tablet by mouth once daily. amLODIPine (NORVASC) 5 mg tablet Take 1 tablet by mouth once daily. hydroCHLOROthiazide 25 mg tablet Take 1 tablet by mouth once daily. albuterol HFA (PROVENTIL HFA, VENTOLIN HFA) 90 mcg/actuation inhaler Inhale 2 Puffs as instructed every 4 hours as needed for wheezing/shortness of breath. aspirin 81 mg cap Take 1 tablet by mouth once daily. (Patient not taking: Reported on 07/31/2023) FAMILY HISTORY Problem Relation Age of Onset None Mother Diabetes Father Heart Father heart attack starting in his 30's, CHF, valvular heart disease, cardiac stent other (Agent orange) Father Dm/heart/foot amputation None Sister None Brother Breast Cancer Maternal Aunt triple negative Social History Tobacco Use Smoking status: Former Packs/day: 1.50 Years: 32.00 Additional pack years: 0.00 Total pack years: 48.00 Types: Cigarettes Quit date: 02/26/2023 Years since quittin.4 Smokeless tobacco: Never Tobacco comments: Pt has cut back to 1/2-1 pack daily. Started at age 15 Vaping Use Vaping Use: Never used Substance Use Topics Alcohol use: Not Currently Comment: 1 drink per year Drug use: No BP 148/80 Pulse 72 Temp 37.6 C (99.7 F) Resp 18 Wt 130.8 kg (288 lb 6.4 oz) LMP 11/14/2022 (Exact Date) SpO2 95% BMI 46.07 kg/m Review of Systems Constitutional: Positive for chills, fever and malaise/fatigue. HENT: Positive for sore throat. Negative for congestion, ear discharge, ear pain and sinus pain. Eyes: Negative for blurred vision, pain, discharge and redness. Respiratory: Positive for cough. Negative for hemoptysis, sputum production, shortness of breath, wheezing and stridor. Cardiovascular: Negative for chest pain. Gastrointestinal: Negative for abdominal pain, diarrhea, nausea and vomiting. Musculoskeletal: Positive for myalgias. Skin: Negative for itching and rash. Neurological: Negative for dizziness and headaches. Objective Physical Exam Constitutional: General: She is not in acute distress. Appearance: She is not diaphoretic. HENT: Head: Normocephalic. Jaw: No trismus, tenderness, swelling or pain on movement. Nose: Congestion present. Mouth/Throat: Mouth: Mucous membranes are moist. Pharynx: Oropharynx is clear. Uvula midline. No pharyngeal swelling, oropharyngeal exudate, posterior oropharyngeal erythema or uvula swelling. Eyes: Conjunctiva/sclera: Conjunctivae normal. Pupils: Pupils are equal, round, and reactive to light. Cardiovascular: Rate and Rhythm: Normal rate and regular rhythm. Heart sounds: Normal heart sounds. Pulmonary: Effort: Pulmonary effort is normal. No tachypnea, accessory muscle usage or respiratory distress. Breath sounds: Normal breath sounds. No stridor. No wheezing, rhonchi or rales. Abdominal: General: There is no distension. Palpations: Abdomen is soft. Tenderness: There is no abdominal tenderness. There is no guarding or rebound. Musculoskeletal: Cervical back: Normal range of motion and neck supple. No edema, erythema, rigidity or tenderness. No pain with movement. Normal range of motion. Lymphadenopathy: Cervical: No cervical adenopathy. Skin: General: Skin is warm and dry. Neurological: Mental Status: She is alert and oriented to person, place, and time. ASSESSMENT/PLAN: 1. Fever, unspecified fever cause - ICD9: 780.60, ICD10: R50.9 (primary diagnosis) - INFLUENZA A&B MOLECULAR (POC) 2. Influenza A - ICD9: 487.1, ICD10: J10.1 Influenza A test positive. Diagnosed with influenza A. With comorbidities placed on Tamiflu. Risk and benefits of medication discussed. Renal function normal. Patient was educated on supportive therapies. Patient will follow up with primary care provider as needed. Patient was instructed to immediately proceed to emergency room for any new, worsening, or symptoms lasting longer than anticipated. The patient's clinical presentation is otherwise unremarkable at this time. Based on exam and clinical finding, the patient is stable for discharge. Plan of care was discussed with patient. Patient verbalizes understanding and agrees to plan of care. This note was generated using Laserlike software. It may contain errors in wording, punctuation, or spelling. Ish Lopes APRN.LEAVE SPECIALIST documented in this encounter [facility] 07-31-2023 Note [facility] 07-31-2023 History of Presen t illness Narrative (Elements copied from my note dated June 05, 2023, have been reviewed and updated where appropriate, and all reflect current assessment and medical decision making from today's encounter, July 31, 2023) HISTORY OF PRESENT ILLNESS: Dodie Brizuela is a 52 year old female smoker smoked variably since age 16, up to 1.5 ppd. Notes declining O2 levels. Labs reviewed marked erythrocytosis, also elevated epo level. Erythrocytosis present since 2019, epo level normal last year. Here for follow up, reviewed labs, scans Saw pulmonology has sleep apnea, plan to start CPAP CLINICAL IMPRESSION: Erythrocytosis with now elevated epo level No evidence epo secreting tumor Suspect relates to underlying lung disease RECOMMENDATION/PLAN: 1. Phlebotomy 2. Follow up 2 months with cbc Written and verbal health teaching given to patient, patient verbalizes understanding and agrees with treatment plan. PAST MEDICAL HISTORY Diagnosis Date Acute medial meniscal tear, right, subsequent encounter 05/04/2018 Added automatically from request for surgery [id number] Anxiety neurosis 04/11/2015 Asthma Depressive disorder 07/25/2015 Diabetes mellitus (HCC) 04/11/2015 Diverticulitis 04/11/2015 Two episodes of diverticulitis, 12 years ago (hospitalized), and then 6 years ago. Colon exam with polyps ? 5 years ago. HTN (hypertension) 04/11/2015 Iron deficiency anemia due to chronic blood loss 07/25/2015 Menorrhagia 07/20/2015 Morbid obesity (HCC) Polycythemia PAST SURGICAL HISTORY Procedure Laterality Date ARTHRS KNE SURG W/MENISCECTOMY MED/LAT W/SHVG Right 06/12/2018 Right knee arthroscopic medial menisectomy, medial and PF chondroplasties COLONOSCOPY FLX DX W/COLLJ SPEC WHEN PFRMD 2009 Colonoscopy ENDOMETRIAL BX W/WO ENDOCERVIX BX W/O DILAT SPX 07/03/2015 neg NEUROPLASTY &/TRANSPOS MEDIAN NRV CARPAL TUNNE Right Carpal tunnel decomp TUBAL LIGATION, 1993 FAMILY HISTORY Problem Relation Age of Onset None Mother Diabetes Father Heart Father heart attack starting in his 30's, CHF, valvular heart disease, cardiac stent other (Agent orange) Father Dm/heart/foot amputation None Sister None Brother Breast Cancer Maternal Aunt triple negative Social History Tobacco Use Smoking status: Former Packs/day: 1.50 Years: 32.00 Additional pack years: 0.00 Total pack years: 48.00 Types: Cigarettes Quit date: 02/26/2023 Years since quittin.4 Smokeless tobacco: Never Tobacco comments: Pt has cut back to 1/2-1 pack daily. Started at age 15 Vaping Use Vaping Use: Never used Substance Use Topics Alcohol use: Not Currently Comment: 1 drink per year Drug use: No ALLERGIES: ALLERGIES Allergen Reactions Amoxicillin Hives CURRENT OUTPATIENT MEDICATIONS: ramipril (ALTACE) 10 mg capsule Take 1 capsule by mouth two times a day. metFORMIN (GLUCOPHAGE) 500 mg tablet Take 2 tablets by mouth twice daily with meals. citalopram (CELEXA) 20 mg tablet Take 1 tablet by mouth once daily. amLODIPine (NORVASC) 5 mg tablet Take 1 tablet by mouth once daily. hydroCHLOROthiazide 25 mg tablet Take 1 tablet by mouth once daily. albuterol HFA (PROVENTIL HFA, VENTOLIN HFA) 90 mcg/actuation inhaler Inhale 2 Puffs as instructed every 4 hours as needed for wheezing/shortness of breath. aspirin 81 mg cap Take 1 tablet by mouth once daily. (Patient not taking: Reported on 07/31/2023) REVIEW OF SYSTEMS: GENERAL: No fever, night sweats, weight loss or malaise. All other reviewed and negative other than HPI. PHYSICAL EXAMINATION: VITAL SIGNS: BP 119/76 Pulse 69 Temp 98.2 Wt 286 lb (129.7kg) SpO2 94% LMP 11/14/2022 GENERAL APPEARANCE: Well appearing, in no acute distress, alert and oriented x3, well-hydrated, well nourished. SKIN: less plethoric I spent a total of 20 minutes on the date of the service which included preparing to see the patient, [id number] patient care, completing clinical documentation, obtaining and/or reviewing separately obtained history, counseling and educating the patient/family/caregiver, ordering medications, tests, or procedures, independently interpreting results (not separately reported), and communicating results to the patient/family/caregiver. Electronically Signed: Raimundo Lee MD July 31, 2023 documented in this encounter [facility] 07-31-2023 Nurse Note Est. Pt, discuss recent labs, poss phlebo today. Jacque Cardona LPN documented in this encounter [facility] 06-05-2023 Note [facility] 05-13-2023 Miscellaneous Notes Sw spoke with patient in regards to CPAP assistance. Quinton discussed Counts Include [address] and [place] for assistance with cost through [facility]. Sw will also send patient My Chart message with website information so that patient can see about applying for assistance with cost of CPAP. Patient can also reply back to Quinton via My Chart message in case she needs further assistance with application. documented in this encounter [facility] 05-05-2023 Miscellaneous Notes Spoke with Dodie regarding sleep study. Shows sleep apnea and obesity hypoventilation. Unfortunately, patient does not have insurance. I will reach out to dialysis social worker regarding options for CPAP. documented in this encounter [facility] 04-21-2023 Note [facility] 04-21-2023 History of Presen t illness Narrative Sleep Study Check-In Documentation Date: April 21, 2023 Name: Dodie Brizuela Patient was accompanied by Spouse. Location: [place] Latex allergy: No Tape allergy: No Current medications were reviewed with the patient:Yes Sleep aid taken by patient for the sleep study: Reading of sleep aid: Not Applicable Procedure was explained to the patient and all questions were answered. PAP treatment discussed and shown to patient: Yes If PAP used enter mask info: Mask Name F/P MakeEson 2 MaskTypeNasal Mask SizeLarge Chin Sharp Used No Knowledge Program (KP): KP was not completed in epic by patient and accepted Study type: Split Study-Polysomnogram with CPAP titration Adverse Event: No (If yes create a new abstract) JAMIE ParkerGT March 31, 2023 Standing PSG Orders signed in the last 90 days None Future PSG Orders signed in the last 90 days Ordered Auth. provider POLYSOMNOGRAM (PSG) [[id number]] 03/10/23 Lucretia Calix MD Assoc. diagnoses: Hypoxemia [R09.02], Snoring [R06.83] Q: Indications - Select All That Apply: A: Obstructive sleep apnea Q: STOP-BANG conditions - Select All That Apply: A: BMI > 35 kg/m2 A2: AGE > 50 A3: high blood PRESSURE A4: SNORING that is loud or disruptive A5: TIREDNESS, fatigue or sleepiness during the day Q: Comorbidities: A: Moderate/Severe Pulmonary disease Q: Specify Pulmonary Disease: A: Pulmonary hypertension Q: Is the patient non-ambulatory or will they be accompanied by a caregiver?: A: No Q: Current use of supplemental oxygen during sleep period?: A: Yes Q: Supplemental oxygen will mask the appearance of respiratory events. Indicate whether oxygen may be held during testing.: A: Yes Q: Is this a repeat Sleep Study?: A: No All Prior Sleep Studies (past 365 days) Some values may be hidden. Unless noted otherwise, only the newest values recorded on each date are displayed. Sleep Studies POLYSOMNOGRAM (PSG) Future Expected: Expires: 03/09/24 BMI Readings from Last 2 Encounters: 03/10/23 : 42.19 kg/m 03/06/23 : 42.42 kg/m PAST MEDICAL HISTORY Diagnosis Date Acute medial meniscal tear, right, subsequent encounter 05/04/2018 Added automatically from request for surgery [id number] Anxiety neurosis 04/11/2015 Asthma Depressive disorder 07/25/2015 Diabetes mellitus (HCC) 04/11/2015 Diverticulitis 04/11/2015 Two episodes of diverticulitis, 12 years ago (hospitalized), and then 6 years ago. Colon exam with polyps ? 5 years ago. HTN (hypertension) 04/11/2015 Iron deficiency anemia due to chronic blood loss 07/25/2015 Menorrhagia 07/20/2015 Morbid obesity (HCC) Polycythemia The medical record was reviewed to determine if the proposed sleep study conforms to the [facility] Practice Parameters for the Indications for Polysomnography and Related Procedures, or if the sleep study is indicated for other reasons. Indications for study: JIAN suspected with comorbid medical or sleep disorders: Morbid obesity (BMI>40 kg/m2) Sleep study to be performed: Polysomnogram Special instructions: Target REM/supine sleep Add EtCO2 or Transcutaneous CO2 if available Maria De Jesus Flores - Sleep Medicine Staff Note: I have read the above protocol, edited as needed, and agree to the plan. Bernard Moreland III, PhD 5:58 PM, 03/31/2023 March 25, 2023 An order has been received for Polysomnogram (PSG) from Dr. Calix, Lucretia Espinosa MD, a [facility] Staff. Visit prep complete. Comments :No The sleep study is scheduled for 04/20. Insurance: No coverage found. Payer/Plan Subscr Sex Relation Sub. Ins. ID Effective Group Num Derrek Purvis documented in this encounter [facility] 04-11-2023 Note [facility] 04-07-2023 Note [facility] 04-07-2023 History of Presen t illness Narrative CC Patient presents with: 2 month follow up - blood pressure HPI Dodie Brizuela is a 52 year old female who presents to the office for blood pressure. Her visit today is for follow-up. Patient was last seen for this approximately 2 months ago. Medication changes: Yes HCTZ increased to 25 mg daily Taking all medications as prescribed: Yes Side effects: No Home BP's: No Last 4 Encounter BP Readings: Date: BP: 04/07/2023 128/76 04/03/2023 129/70 03/27/2023 122/83 03/12/2023 117/79 Last 3 Encounter Wt Readings: Date: Wt: 04/07/2023 123.4 kg (272 lb) 03/10/2023 122.2 kg (269 lb 6.4 oz) 03/06/2023 122.2 kg (269 lb 8 oz) She is being treated for polycythemia secondary to underlying lung disease with weekly phlebotomy. Referred to pulmonology for SOB and hypoxia. Echocardiogram was grossly normal. She is scheduled for PFT's and sleep study done to evaluate further. She quit smoking cold turkey about 4 weeks ago and cravings are minimal, declines need for assistance. REVIEW OF SYSTEMS See HPI PAST MEDICAL HISTORY Diagnosis Date Acute medial meniscal tear, right, subsequent encounter 05/04/2018 Added automatically from request for surgery [id number] Anxiety neurosis 04/11/2015 Asthma Depressive disorder 07/25/2015 Diabetes mellitus (HCC) 04/11/2015 Diverticulitis 04/11/2015 Two episodes of diverticulitis, 12 years ago (hospitalized), and then 6 years ago. Colon exam with polyps ? 5 years ago. HTN (hypertension) 04/11/2015 Iron deficiency anemia due to chronic blood loss 07/25/2015 Menorrhagia 07/20/2015 Morbid obesity (HCC) Polycythemia PAST SURGICAL HISTORY Procedure Laterality Date ARTHRS KNE SURG W/MENISCECTOMY MED/LAT W/SHVG Right 06/12/2018 Right knee arthroscopic medial menisectomy, medial and PF chondroplasties COLONOSCOPY FLX DX W/COLLJ SPEC WHEN PFRMD 2009 Colonoscopy ENDOMETRIAL BX W/WO ENDOCERVIX BX W/O DILAT SPX 07/03/2015 neg NEUROPLASTY &/TRANSPOS MEDIAN NRV CARPAL TUNNE Right Carpal tunnel decomp TUBAL LIGATION, 1993 ALLERGIES Amoxicillin MEDICATIONS aspirin 81 mg cap^Take by mouth.^Disp: ^Rfl: metFORMIN (GLUCOPHAGE) 500 mg tablet^Take 2 tablets by mouth twice daily with meals.^Disp: 360 tablet^Rfl: 1 citalopram (CELEXA) 20 mg tablet^Take 1 tablet by mouth once daily.^Disp: 90 tablet^Rfl: 1 amLODIPine (NORVASC) 5 mg tablet^Take 1 tablet by mouth once daily.^Disp: 90 tablet^Rfl: 1 hydroCHLOROthiazide 25 mg tablet^Take 1 tablet by mouth once daily.^Disp: 90 tablet^Rfl: 3 albuterol HFA (PROVENTIL HFA, VENTOLIN HFA) 90 mcg/actuation inhaler^Inhale 2 Puffs as instructed every 4 hours as needed for wheezing/shortness of breath.^Disp: 1 Each^Rfl: 2 ramipril (ALTACE) 10 mg capsule^Take 1 capsule by mouth twice daily.^Disp: 180 capsule^Rfl: 3 FAMILY HISTORY Problem Relation Age of Onset None Mother Diabetes Father Heart Father heart attack starting in his 30's, CHF, valvular heart disease, cardiac stent other (Agent orange) Father Dm/heart/foot amputation None Sister None Brother Breast Cancer Maternal Aunt triple negative Social History Tobacco Use Smoking status: Former Packs/day: 1.50 Years: 32.00 Additional pack years: 0.00 Total pack years: 48.00 Types: Cigarettes Quit date: 02/26/2023 Years since quittin.1 Smokeless tobacco: Never Tobacco comments: Pt has cut back to 1/2-1 pack daily. Started at age 15 Vaping Use Vaping Use: Never used Substance Use Topics Alcohol use: Not Currently Comment: 1 drink per year Drug use: No PHYSICAL EXAM BP 128/76 Pulse 64 Resp 16 Wt 123.4 kg (272 lb) LMP 11/14/2022 (Exact Date) SpO2 90% BMI 42.60 kg/m General Appearance: well appearing, in no acute distress, alert Lungs: Lungs clear to auscultation. No wheezing, rhonchi, rales. Heart: RRR without murmur, gallop, or rubs. No ectopy DATA REVIEWED: Most recent labs ASSESSMENT/PLAN: 1. Primary hypertension - ICD9: 401.9, ICD10: I10 (primary diagnosis) - Improving control - Continue current medications - Recommend home blood pressure monitoring, to bring results to next visit - Encouraged sodium restriction, DASH or Mediterranean diet 2. SOB (shortness of breath) - ICD9: 786.05, ICD10: R06.02 Scheduled for PFT's and sleep study. Follow-up with pulmonology as scheduled 3. Hypoxia - ICD9: 799.02, ICD10: R09.02 Home oxygen was ordered but patient declined at this time. Wants to see what's causing her symptoms first 4. Polycythemia - ICD9: 238.4, ICD10: D75.1 Weekly phlebotomy and follow-up with hematology as scheduled 5. Type 2 diabetes mellitus without complication, without long-term current use of insulin (HCC) - ICD9: 250.00, ICD10: E11.9 - ALBUMIN/CREAT RATIO RND UR - LIPID PANEL BASIC Prescription instructions reviewed with patient as applicable. Potential red flag symptoms discussed with the patient. Reviewed appropriate action plan to take if red flag symptoms occur. Patient agreeable to treatment plan Claudette Snyder APRN.CNP documented in this encounter [facility] 03-31-2023 Note [facility] 03-25-2023 Note [facility] 03-25-2023 Miscellaneous Notes Thank you. Added to appointment notes to schedule in May. Per Dr. Lee, patient needs a 3mo OV. Kizzy Parra RN Patient last office visit 03/06. Patient coming in for qwk phlebo. Please advise when next OV should be documented in this encounter [facility] 03-10-2023 Note [facility] 03-10-2023 History of Presen t illness Narrative Images from the original note were not included. . [facility] Note Patient name: Dodie Brizuela PCP: Jose Blanton MD Referring Physician: Raimundo Lee MD Consultation requested by Dr. Lee for an opinion regarding hypoxemia and polycythemia. My final recommendations will be communicated back to the requesting physician by way of shared Medical record or letter to requesting physician via US mail. CC: high blood counts and fatigue HPI: Dodie Brizuela 52 year old morbidly obese female recent former 1.5 ppd for 30 year smoker with PMH significant for DM2, HTN, asthma recently seen in hematology for polycythemia. She has a long standing history of asthma, treated with as needed albuterol. Respiratory symptoms consist of LUIS, wheezing and chronic productive cough. Albuterol is helpful. Just stopped smoking so productive cough has worsened. Never had PFTs. Chest imaging shows mosaic attenuation consistent with airways disease. She likely has JIAN based on questions. Snores, daytime sleepiness. Has fallen asleep if sitting quietly but not at the wheel when driving. She has intermittent significant edema. No headaches. Never hospitalized for her lung disease. Home self monitored SpO2 as low as 86%. THE EPWORTH SLEEPINESS SCALE How likely are you to doze off or fall asleep in the following situations as opposed to feeling just tired? This refers to your usual way of life in recent times. Even if you have not done some of these things recently, try to work out how they would have affected you. Use the following scale to choose the most appropriate number for each situation. 0 = Would never doze 1 = Slight chance of dozing 2 = Moderate chance of dozing 3 = High chance of dozing SITUATION CHANCE OF DOZING Sitting and reading 3 Watching TV 2 Sitting inactive in a public place (e.g. theatre or meeting) 1 As A passenger in a car for an hour without a break 3 Lying down to rest in the afternoon when circumstances permit 3 Sitting and talking with someone 2 Sitting quietly after a lunch without alcohol 3 In a car, while stopped for a few minutes in traffic 0 Score 17 STOP BANG Questionnaire 1. Snoring Do you snore loudly (louder than talking or loud enough to be heard through closed doors)? YES 2. Tired Do you often feel tired, fatigued, or sleepy during daytime? YES 3. Observed Has anyone observed you stop breathing during your sleep? NO 4. Blood Pressure Do you have or are you being treated for high blood pressure? YES 5. BMI BMI more than 35 kg/m2? YES 6. Age Age over 50 yr old? YES 7. Neck circumference Neck circumference greater than 40 cm? NO 8. Gender Gender male? NO * Neck circumference is measured by staff High risk of JIAN: answering yes to three or more items Low risk of JIAN: answering yes to less than three items DATA: Component Ref Range & Units 1 mo ago 11 mo ago Erythropoietin 2.6 - 18.5 mIU/mL 79.6 High Myeloproliferative neoplasm panel pending Labs: Component Ref Range & Units 2 d ago (03/06/23) 9 d ago (02/27/23) 2 wk ago (02/20/23) 3 wk ago (02/13/23) 1 mo ago (02/03/23) 1 mo ago (01/09/23) 11 mo ago (04/01/22) WBC 3.70 - 11.00 k/uL 5.75 5.50 6.04 6.28 6.33 CM 7.64 6.63 RBC 3.90 - 5.20 m/uL 6.55 High 6.66 High 6.82 High 7.04 High 6.97 High 6.77 High 6.04 High Hemoglobin 11.5 - 15.5 g/dL 19.0 High 19.4 High 20.1 High 20.7 High 20.6 High 19.9 High CM 17.7 High Hematocrit 36.0 - 46.0 % 59.5 High 61.6 High 62.9 High 65.3 High 65.0 High 62.2 High 54.2 High MCV 80.0 - 100.0 fL 90.8 92.5 92.2 92.8 93.3 91.9 89.7 MCH 26.0 - 34.0 pg 29.0 29.1 29.5 29.4 29.6 29.4 29.3 MCHC 30.5 - 36.0 g/dL 31.9 31.5 32.0 31.7 31.7 32.0 32.7 RDW-CV 11.5 - 15.0 % 13.2 14.2 14.6 15.9 High 16.8 High 17.3 High 13.0 Platelet Count 150 - 400 k/uL 172 170 162 164 170 158 185 MPV 9.0 - 12.7 fL 9.9 10.1 10.1 9.6 9.9 10.1 9.6 Neutrophils % % 56.5 64.5 59.8 62.7 61.9 62.7 Abs Neut 1.45 - 7.50 k/uL 3.25 3.55 3.61 3.94 3.92 4.16 Lymphocytes % % 25.4 22.4 25.2 22.8 23.1 22.5 Abs Lymph 1.00 - 4.00 k/uL 1.46 1.23 1.52 1.43 1.46 1.49 Monocytes % % 10.6 6.9 9.6 8.9 9.2 9.2 Abs [place] <0.87 k/uL 0.61 0.38 0.58 0.56 0.58 0.61 Eosinophils % % 5.2 4.5 4.1 4.0 3.9 4.7 Abs Eosin <0.46 k/uL 0.30 0.25 0.25 0.25 0.25 0.31 Basophils % % 1.6 1.3 1.0 1.3 1.3 0.6 Abs Baso <0.11 k/uL 0.09 0.07 0.06 0.08 0.08 0.04 Immature Granulocytes % % 0.7 0.4 0.3 0.3 0.6 0.3 Abs Immature Gran <0.10 k/uL 0.04 <0.03 <0.03 <0.03 0.04 <0.03 NRBC /100 WBC 0.0 0.0 0.0 0.0 0.0 0.0 Absolute nRBC <0.01 k/uL <0.01 <0.01 <0.01 <0.01 <0.01 <0.01 <0.01 Diff Type Auto Auto Auto Auto Auto Resulting Agency [facility] Imaging / Diagnostic Studies: DATE OF EXAM: Feb 24 2023 12:01PM [facility] 0539 - CT CHEST W IVCON / COMPARISON: None. RESULT: Limitations: None. Chest: Lines, tubes, and devices: None. Lung parenchyma and pleura: There is no pleural effusion. There is mild dependent atelectasis. Mild biapical fibrosis. There is no pneumothorax. Secretions are seen within the trachea. Mild atelectasis is seen within the lingula and right middle lobe. Subtle groundglass attenuation and air-trapping within both lungs suggests reactive airways disease. Thoracic inlet, heart, and mediastinum: There is an approximately 1 cm hypodense nodule seen within the right lobe of the thyroid gland (series 7, image #16). There are no pathologically enlarged axillary, mediastinal, or hilar nodes. Mild atherosclerotic disease is seen within the thoracic arch. The heart is normal in size. There is no significant pericardial effusion. The main pulmonary is dilated, measuring approximately 4.2 cm, which can be seen with pulmonary arterial hypertension. Abdomen/pelvis: Liver: The liver has a somewhat nodular contour. No focal discrete hepatic mass is identified. Biliary: There is no biliary dilation. The gallbladder is grossly unremarkable. Spleen: No mass. No splenomegaly. Pancreas: There is no obvious focal discrete pancreatic mass or pancreatic ductal dilation. Adrenals: Mild, nonspecific thickening of the adrenal glands, bilaterally. No adrenal mass. Kidneys: There is no hydronephrosis or perinephric fluid collection. There are bilateral renal cysts. Additionally, there are subcentimeter, low-attenuation lesions seen within the kidneys, which are too small to characterize but statistically relate to subcentimeter cysts. GI tract: Nonspecific wall thickening of the stomach likely relates to underdistention. There are no dilated loops of bowel to suggest obstruction. Unremarkable CT appearance of a retrocecal appendix. There is colonic diverticulosis, without CT evidence for diverticulitis. Lymph nodes: There are prominent, less than 1 cm abdominal lymph nodes, likely reactive. Mesentery/Peritoneum: There is no abdominal ascites. Vasculature: No abdominal aortic aneurysm. Atherosclerotic disease. Pelvis: Phleboliths are incidentally noted within the pelvis. There is no pelvic lymphadenopathy, pelvic mass, or pelvic ascites. Bones/Soft Tissues: There is bilateral hip DJD. A few presumed bone islands are incidentally noted within the osseous structures. Sclerosis and vacuum phenomena is seen involving the sacroiliac joint spaces, bilaterally. Disc space narrowing and vacuum disc phenomena is seen at multiple levels. Loose body is seen about the right shoulder. There is no destructive bony lesion. A few presumed bone islands are incidentally noted. IMPRESSION: Subtle groundglass attenuation and air-trapping within both lungs suggests reactive airways disease. Otherwise, no acute pulmonary process is identified. No lymphadenopathy seen within the chest. Dilated main pulmonary artery, measuring approximately 4.2 cm, which can be seen with pulmonary arterial hypertension. No acute abdominal or pelvic process is identified. No homa lymphadenopathy is seen within the abdomen or pelvis. The liver has a somewhat nodular contour. No splenomegaly. Normal appendix. Colonic diverticulosis, without CT evidence for diverticulitis. I personally reviewed the images as well as with the patient and her and agree with the above assessment Echo 2021: RIGHT VENTRICLE The right ventricle is normal in size. Right ventricular systolic function is normal. RV systolic tissue Doppler velocity is 13.0 cm/s. Estimated right ventricular systolic pressure is likely underestimated due to a weak or incomplete tricuspid regurgitation signal and is, at least, 31 mmHg consistent with normal pulmonary artery pressures. Estimated right atrial pressure is 3 mmHg (although IVC not seen). CONCLUSIONS: - Technically difficult exam due to body habitus. - Exam indication: Cardiac murmur - The left ventricle is normal in size. There is mild concentric left ventricular hypertrophy. Left ventricular systolic function is normal. EF = 69 5% (2D 4-ch.) Indeterminate left ventricular diastolic dysfunction. - The right ventricle is normal in size. Right ventricular systolic function is normal. - The left atrial cavity is mildly dilated. - There are no significant valvular abnormalities. - The patient has not had a prior CC echocardiographic exam for comparison. PAST MEDICAL HISTORY Diagnosis Date Acute medial meniscal tear, right, subsequent encounter 05/04/2018 Added automatically from request for surgery [id number] Anxiety neurosis 04/11/2015 Asthma Depressive disorder 07/25/2015 Diabetes mellitus (HCC) 04/11/2015 Diverticulitis 04/11/2015 Two episodes of diverticulitis, 12 years ago (hospitalized), and then 6 years ago. Colon exam with polyps ? 5 years ago. HTN (hypertension) 04/11/2015 Iron deficiency anemia due to chronic blood loss 07/25/2015 Menorrhagia 07/20/2015 Morbid obesity (HCC) Polycythemia ALLERGIES Allergen Reactions Amoxicillin Hives aspirin 81 mg cap^Take by mouth.^Disp: ^Rfl: metFORMIN (GLUCOPHAGE) 500 mg tablet^Take 2 tablets by mouth twice daily with meals.^Disp: 360 tablet^Rfl: 1 citalopram (CELEXA) 20 mg tablet^Take 1 tablet by mouth once daily.^Disp: 90 tablet^Rfl: 1 amLODIPine (NORVASC) 5 mg tablet^Take 1 tablet by mouth once daily.^Disp: 90 tablet^Rfl: 1 hydroCHLOROthiazide 25 mg tablet^Take 1 tablet by mouth once daily.^Disp: 90 tablet^Rfl: 3 albuterol HFA (PROVENTIL HFA, VENTOLIN HFA) 90 mcg/actuation inhaler^Inhale 2 Puffs as instructed every 4 hours as needed for wheezing/shortness of breath.^Disp: 1 Each^Rfl: 2 ramipril (ALTACE) 10 mg capsule^Take 1 capsule by mouth twice daily.^Disp: 180 capsule^Rfl: 3 Social History Tobacco Use Smoking status: Former Packs/day: 1.50 Years: 32.00 Additional pack years: 0.00 Total pack years: 48.00 Types: Cigarettes Quit date: 02/26/2023 Years since quittin.0 Smokeless tobacco: Never Tobacco comments: Pt has cut back to 1/2-1 pack daily. Started at age 15 Vaping Use Vaping Use: Never used Substance Use Topics Alcohol use: Not Currently Comment: 1 drink per year Drug use: No No occupational exposures Pets: dog FAMILY HISTORY Problem Relation Age of Onset None Mother Diabetes Father Heart Father heart attack starting in his 30's, CHF, valvular heart disease, cardiac stent other (Agent orange) Father Dm/heart/foot amputation None Sister None Brother Breast Cancer Maternal Aunt triple negative PAST SURGICAL HISTORY Procedure Laterality Date ARTHRS KNE SURG W/MENISCECTOMY MED/LAT W/SHVG Right 06/12/2018 Right knee arthroscopic medial menisectomy, medial and PF chondroplasties COLONOSCOPY FLX DX W/COLLJ SPEC WHEN PFRMD 2009 Colonoscopy ENDOMETRIAL BX W/WO ENDOCERVIX BX W/O DILAT SPX 07/03/2015 neg NEUROPLASTY &/TRANSPOS MEDIAN NRV CARPAL TUNNE Right Carpal tunnel decomp TUBAL LIGATION, 1993 PMH, Social history, family history and surgical history reviewed and updated in EMR REVIEW OF SYSTEMS: CONSTITUTIONAL: No fevers, chills, nightsweats, unintended weight loss HEENT: Denies am headaches nasal congestion/sinus symptoms, allergy problems. EYES: No diplopia or blurry vision or eye pain CARDIOVASCULAR: No chest pain, palpitations, orthopnea, PND. Edema PULM: See HPI GI: No dysphagia/odynophagia, problematic reflux, constipation, diarrhea, changes in stool habits : No urinary complaints, including dysuria, gross hematuria or pyuria. NEURO: No balance problems, peripheral weakness/paresthesias or numbness of concern. MUSC-SKEL: No joint pain, swelling, or erythema. PSY: Anxiety and depression INTEGUMENTARY: No new skin changes or rashes PHYSICAL EXAMINATION: BP 136/90 Pulse 70 Resp 16 Ht 5' 7 (1.70m) Wt 269 lb 6.4 oz (122.2kg) SpO2 88% LMP 11/14/2022 BMI 42.18 kg/(m^2). General Appearance: Morbidly obese female, tearful. Skin: Skin color, texture, turgor normal, no suspicious rashes or lesions. Head: Normocephalic, no masses, lesions, tenderness or abnormalities. Eyes: Sclera, conjunctiva normal. Oropharynx: No oral lesions, Mallampati IV. Neck: No JVD, no masses, no TM. Lungs: Not labored, normal to percussion, no wheezes or crackles. Heart: RRR, systolic murmur RUSB. Extremities: Edema, no clubbing. Musculoskeletal: No joint deformities or effusions. Neurologic: Alert and oriented, no focal findings. Lymph Nodes: No cervical lymphadenopathy and No supraclavicular lymphadenopathy. Assessment/Plan: Hypoxemia -Multifactorial. Suspect JIAN and COPD -Qualifies for home oxygen but patient does not have insurance. May not be able to afford rental PAH -Suspect worsening pressures due to prolonged hypoxemia -Update Echo Snoring -High risk for JIAN -In lab sleep study Obstructive lung disease -Degree unknown -Full set of PFTs with recommendations for inhaled therapy to follow Morbid obesity -Class 3 obesity with BMI 42 -Weight loss advised Former cigarette smoker -Recently quit. Continue abstinence -Qualifies for lung cancer screening. Recent CT without suspicious lesions so will not be due until next year for imaging Lucretia Calix MD [facility] documented in this encounter [facility] 03-06-2023 Note [facility] 03-06-2023 History of Presen t illness Narrative (Elements copied from my note dated February 10, 2023, have been reviewed and updated where appropriate, and all reflect current assessment and medical decision making from today's encounter, March 06, 2023) HISTORY OF PRESENT ILLNESS: Dodie Brizuela is a 52 year old female smoker smoked variably since age 16, up to 1.5 ppd. Notes declining O2 levels. Labs reviewed marked erythrocytosis, also elevated epo level. Erythrocytosis present since 2019, epo level normal last year. Here for follow up, reviewed labs, scans CLINICAL IMPRESSION: Erythrocytosis with now elevated epo level No evidence epo secreting tumor Suspect relates to underlying lung disease RECOMMENDATION/PLAN: 1. Plan phlebotomy given degree of erythrocytosis 2. Refer to pulmonology re probable lung disease pulmonary HTN 3. MPN panel for completeness 4. She takes a baby aspirin Written and verbal health teaching given to patient, patient verbalizes understanding and agrees with treatment plan. PAST MEDICAL HISTORY Diagnosis Date Acute medial meniscal tear, right, subsequent encounter 05/04/2018 Added automatically from request for surgery [id number] Anxiety neurosis 04/11/2015 Depressive disorder 07/25/2015 Diabetes mellitus (HCC) 04/11/2015 Diverticulitis 04/11/2015 Two episodes of diverticulitis, 12 years ago (hospitalized), and then 6 years ago. Colon exam with polyps ? 5 years ago. HTN (hypertension) 04/11/2015 Iron deficiency anemia due to chronic blood loss 07/25/2015 Menorrhagia 07/20/2015 Non morbid obesity due to excess calories 07/25/2015 PAST SURGICAL HISTORY Procedure Laterality Date ARTHRS KNE SURG W/MENISCECTOMY MED/LAT W/SHVG Right 06/12/2018 Right knee arthroscopic medial menisectomy, medial and PF chondroplasties COLONOSCOPY FLX DX W/COLLJ SPEC WHEN PFRMD 2009 Colonoscopy ENDOMETRIAL BX W/WO ENDOCERVIX BX W/O DILAT SPX 07/03/2015 neg NEUROPLASTY &/TRANSPOS MEDIAN NRV CARPAL TUNNE Right Carpal tunnel decomp TUBAL LIGATION, 1993 FAMILY HISTORY Problem Relation Age of Onset None Mother Diabetes Father Heart Father heart attack starting in his 30's, CHF, valvular heart disease, cardiac stent other (Agent orange) Father Dm/heart/foot amputation None Sister None Brother Breast Cancer Maternal Aunt triple negative Social History Tobacco Use Smoking status: Former Packs/day: 1.50 Years: 32.00 Additional pack years: 0.00 Total pack years: 48.00 Types: Cigarettes Quit date: 02/26/2023 Years since quittin.0 Smokeless tobacco: Never Tobacco comments: Pt has cut back to 1/2-1 pack daily. Vaping Use Vaping Use: Never used Substance Use Topics Alcohol use: Yes Comment: 1 drink per year Drug use: No ALLERGIES: ALLERGIES Allergen Reactions Amoxicillin Hives CURRENT OUTPATIENT MEDICATIONS: metFORMIN (GLUCOPHAGE) 500 mg tablet^Take 2 tablets by mouth twice daily with meals.^Disp: 360 tablet^Rfl: 1 citalopram (CELEXA) 20 mg tablet^Take 1 tablet by mouth once daily.^Disp: 90 tablet^Rfl: 1 amLODIPine (NORVASC) 5 mg tablet^Take 1 tablet by mouth once daily.^Disp: 90 tablet^Rfl: 1 hydroCHLOROthiazide 25 mg tablet^Take 1 tablet by mouth once daily.^Disp: 90 tablet^Rfl: 3 albuterol HFA (PROVENTIL HFA, VENTOLIN HFA) 90 mcg/actuation inhaler^Inhale 2 Puffs as instructed every 4 hours as needed for wheezing/shortness of breath.^Disp: 1 Each^Rfl: 2 ramipril (ALTACE) 10 mg capsule^Take 1 capsule by mouth twice daily.^Disp: 180 capsule^Rfl: 3 REVIEW OF SYSTEMS: GENERAL: No fever, night sweats, weight loss or malaise. All other reviewed and negative other than HPI. PHYSICAL EXAMINATION: VITAL SIGNS: BP 150/92 Pulse 64 Temp 99 Ht 5' 6.831 (1.70m) Wt 269 lb 8 oz (122.2kg) SpO2 91% LMP 11/14/2022 BMI 42.40 kg/(m^2). GENERAL APPEARANCE: Well appearing, in no acute distress, alert and oriented x3, well-hydrated, well nourished. SKIN: Skin color plethoric I spent a total of 30 minutes on the date of the service which included preparing to see the patient, [id number] patient care, completing clinical documentation, obtaining and/or reviewing separately obtained history, counseling and educating the patient/family/caregiver, ordering medications, tests, or procedures, independently interpreting results (not separately reported), and communicating results to the patient/family/caregiver. Electronically Signed: Raimundo Lee MD March 06, 2023 documented in this encounter [facility] 02-24-2023 Note [facility] 02-24-2023 History of Presen t illness Narrative Radiology Service Progress Note DATE OF SERVICE: February 24, 2023 TIME: 4:15 PM PATIENT IDENTITY VERIFICATION COMPLETED USING TWO (2) STANDARD IDENTIFIERS: Name and Date of confirmed by patient verbally. FALL SCREENING: Has the patient had 2 falls in the last year or 1 fall with injury or currently using an Ambulatory Assistive Device (Walker, Cane, Wheelchair, Crutches, etc.)? No PATIENT GENDER DATA: Female. status: : No status: NO. PATIENT RELEVANT IMPLANT DATA REVIEWED: Yes ALLERGIES: Reviewed and unchanged CONTRAST ALLERGY: NO. EXAM: CT -CONTRAST INDUCED NEPHROPATHY RISK FACTORS: Not applicable CREATININE: Creatinine Date Value Ref Range Status 01/09/2023 0.60 0.58 - 0.96 mg/dL Final 03/27/2022 0.44 (L) 0.58 - 0.96 mg/dL Final 09/25/2020 0.57 (L) 0.58 - 0.96 mg/dL Final Estimated Glomerular Filtration Rate Date Value Ref Range Status 01/09/2023 108 >=60 mL/min/1.73m Final Comment: Estimated Glomerular Filtration Rate (eGFR) is calculated using the 2020 CKD-EPI creatinine equation. This equation utilizes serum creatinine, sex, and age as parameters. The creatinine assay has traceable calibration to isotope dilution-mass spectrometry. Refer to KDIGO guidelines for clinical interpretation. In patients with unstable renal function, e.g. those with acute kidney injury, the eGFR may not accurately reflect actual GFR. eGFR- Date Value Ref Range Status 09/25/2020 >60 Final P.O.C.T. RESULTS: POC done: Yes, See Lab Tab February 24, 2023 TREATMENT: N/A PERIPHERAL IV DATA: Ambulatory: A peripheral IV was started in the Left antecubital site with a Angio cath: 22 gauge. RADIOLOGY DEPARTMENT: CT; Exam(s) Completed: Chest Abdomen Pelvis SIGNATURE: RT Michael(R) PATIENT NAME: Dodie Brizuela DATE: February 24, 2023 TIME: 4:15 PM documented in this encounter [facility] 02-14-2023 Miscellaneous Notes Yes, baby ASA ok to start per Dr. Lee. Call to patient and aware. Kizzy Parra RN Patient was here for her first phlebotomy for her PV. H&H today 20.7 and 65.3 with platelets at 164. Pt was wondering if ASA would help prevent CVA risk. documented in this encounter [facility] 02-10-2023 Note [facility] 02-10-2023 Miscellaneous Notes Spoke to provider and he stated that 10 days out is ok Check out comments: Need weekly phlebotomy starting this week for polycythemia. Ct scans go please, follow up with me after scans done Orders are in as routine- Due to pt being s/p need t\o schedule 10 days out. If this is not soon enough please change orders to STAT documented in this encounter [facility] 02-10-2023 History of Presen t illness Narrative HISTORY OF PRESENT ILLNESS: Dodie Brizuela is a 52 year old female smoker smoked variably since age 16, up to 1.5 ppd. Notes declining O2 levels. Labs reviewed marked erythrocytosis, also elevated epo level. Erythrocytosis present since 2019, epo level normal last year. CLINICAL IMPRESSION: Erythrocytosis with now elevated epo level RECOMMENDATION/PLAN: 1. Plan phlebotomy given degree of erythrocytosis 2. Scans to rule our epo secreting tumor Written and verbal health teaching given to patient, patient verbalizes understanding and agrees with treatment plan. PAST MEDICAL HISTORY Diagnosis Date Acute medial meniscal tear, right, subsequent encounter 05/04/2018 Added automatically from request for surgery [id number] Anxiety neurosis 04/11/2015 Depressive disorder 07/25/2015 Diabetes mellitus (HCC) 04/11/2015 Diverticulitis 04/11/2015 Two episodes of diverticulitis, 12 years ago (hospitalized), and then 6 years ago. Colon exam with polyps ? 5 years ago. HTN (hypertension) 04/11/2015 Iron deficiency anemia due to chronic blood loss 07/25/2015 Menorrhagia 07/20/2015 Non morbid obesity due to excess calories 07/25/2015 PAST SURGICAL HISTORY Procedure Laterality Date ARTHRS KNE SURG W/MENISCECTOMY MED/LAT W/SHVG Right 06/12/2018 Right knee arthroscopic medial menisectomy, medial and PF chondroplasties COLONOSCOPY FLX DX W/COLLJ SPEC WHEN PFRMD 2009 Colonoscopy ENDOMETRIAL BX W/WO ENDOCERVIX BX W/O DILAT SPX 07/03/2015 neg NEUROPLASTY &/TRANSPOS MEDIAN NRV CARPAL TUNNE Right Carpal tunnel decomp TUBAL LIGATION, 1993 FAMILY HISTORY Problem Relation Age of Onset None Mother Diabetes Father Heart Father heart attack starting in his 30's, CHF, valvular heart disease, cardiac stent other (Agent orange) Father Dm/heart/foot amputation None Sister None Brother Breast Cancer Maternal Aunt triple negative Social History Tobacco Use Smoking status: Every Day Packs/day: 1.50 Years: 32.00 Additional pack years: 0.00 Total pack years: 48.00 Types: Cigarettes Smokeless tobacco: Never Tobacco comments: Pt has cut back to 1/2-1 pack daily. Vaping Use Vaping Use: Never used Substance Use Topics Alcohol use: Yes Comment: 1 drink per year Drug use: No ALLERGIES: ALLERGIES Allergen Reactions Amoxicillin Hives CURRENT OUTPATIENT MEDICATIONS: metFORMIN (GLUCOPHAGE) 500 mg tablet^Take 2 tablets by mouth twice daily with meals.^Disp: 360 tablet^Rfl: 1 citalopram (CELEXA) 20 mg tablet^Take 1 tablet by mouth once daily.^Disp: 90 tablet^Rfl: 1 amLODIPine (NORVASC) 5 mg tablet^Take 1 tablet by mouth once daily.^Disp: 90 tablet^Rfl: 1 hydroCHLOROthiazide 25 mg tablet^Take 1 tablet by mouth once daily.^Disp: 90 tablet^Rfl: 3 albuterol HFA (PROVENTIL HFA, VENTOLIN HFA) 90 mcg/actuation inhaler^Inhale 2 Puffs as instructed every 4 hours as needed for wheezing/shortness of breath.^Disp: 1 Each^Rfl: 2 ramipril (ALTACE) 10 mg capsule^Take 1 capsule by mouth twice daily.^Disp: 180 capsule^Rfl: 3 REVIEW OF SYSTEMS: GENERAL: No fever, night sweats, weight loss or malaise. All other reviewed and negative other than HPI. PHYSICAL EXAMINATION: VITAL SIGNS: BP 144/84 Pulse 76 Temp (Src) 97.2 (Temporal) Ht 5' 6 (1.68m) Wt 271 lb (122.9kg) SpO2 91% LMP 11/14/2022 BMI 43.76 kg/(m^2). GENERAL APPEARANCE: Well appearing, in no acute distress, alert and oriented x3, well-hydrated, well nourished. SKIN: Skin color plethoric I spent a total of 45 minutes on the date of the service which included preparing to see the patient, [id number] patient care, completing clinical documentation, obtaining and/or reviewing separately obtained history, counseling and educating the patient/family/caregiver, ordering medications, tests, or procedures, independently interpreting results (not separately reported), and communicating results to the patient/family/caregiver. Electronically Signed: Raimundo Lee MD February 10, 2023 3:12 PM documented in this encounter [facility] 02-04-2023 Miscellaneous Notes Spoke to patient. She is scheduled 02/[address] Lee First available with dr. Rosa Ruff LPN Please review and advise. Order Providers Authorizing Provider Encounter Provider Claudette Snyder APRN.LEAVE SPECIALIST Claudette Snyder APRN.SAMANTHA Future Order Information Expires 02/04/24 Associated Diagnoses Polycythemia [D75.1] Reason for Exam Priority: Routine Dx: Polycythemia [D75.1 (ICD-10-CM)] documented in this encounter [facility] 02-04-2023 Miscellaneous Notes Patient notified, verbalized understanding. Transferred to schedulers. Please let the patient know her blood counts are even higher than previous. I don't have the other lab result back yet but I am referring her to hematology regardless. Please assist patient in scheduling Claudette Snyder APRN.CNP documented in this encounter [facility] 02-03-2023 Note [facility] 02-03-2023 History of Presen t illness Narrative CC: Patient presents with: F/U 3 Month HPI Dodie Brizuela is a 52 year old female who presents today for above. Polycythemia- trending up. Previous evaluation with peripheral smear normal, attributed to smoking. Patient denies history of sleep apnea. Her tells her she snores but no witnessed apnea. She does not sleep well at night. Denies un-refreshed sleep, excessive daytime sleepiness, waking up gasping/choking. She has hot flashes and occasional night sweats but is also menopausal. Denies fever, chills, malaise, fatigue, unintentional weight loss. Diabetes: worsening control. Home blood sugar readings: fasting average in the 140's to 150's Hypoglycemia: No She is compliant with medication(s) and is tolerating med(s) without any side effects. Denies increased thirst, urinary frequency, nocturia, blurred vision, numbness, tingling or pain in extremities, ulcers or sores on feet Patient's last HgA1C was Hemoglobin A1C (%) Date Value 01/09/2023 7.2 03/27/2022 6.6 09/25/2020 7.2 06/29/2019 7.2 Hemoglobin A1C (POCT) (%) Date Value 12/13/2019 8.4 HTN-Medication changes:No Taking all medications as prescribed: Yes Side effects: No Home BP's: No Denies: headache, chest pain, palpitations, dyspnea, and peripheral edema. Last 3 Encounter BP Readings: Date: BP: 02/03/2023 134/86 01/20/2023 112/62 01/19/2023 138/80 REVIEW OF SYSTEMS See HPI PAST MEDICAL HISTORY Diagnosis Date Acute medial meniscal tear, right, subsequent encounter 05/04/2018 Added automatically from request for surgery [id number] Anxiety neurosis 04/11/2015 Depressive disorder 07/25/2015 Diabetes mellitus (HCC) 04/11/2015 Diverticulitis 04/11/2015 Two episodes of diverticulitis, 12 years ago (hospitalized), and then 6 years ago. Colon exam with polyps ? 5 years ago. HTN (hypertension) 04/11/2015 Iron deficiency anemia due to chronic blood loss 07/25/2015 Menorrhagia 07/20/2015 Non morbid obesity due to excess calories 07/25/2015 PAST SURGICAL HISTORY Procedure Laterality Date ARTHRS KNE SURG W/MENISCECTOMY MED/LAT W/SHVG Right 06/12/2018 Right knee arthroscopic medial menisectomy, medial and PF chondroplasties COLONOSCOPY FLX DX W/COLLJ SPEC WHEN PFRMD 2009 Colonoscopy ENDOMETRIAL BX W/WO ENDOCERVIX BX W/O DILAT SPX 07/03/2015 neg NEUROPLASTY &/TRANSPOS MEDIAN NRV CARPAL TUNNE Right Carpal tunnel decomp TUBAL LIGATION, 1993 ALLERGIES Amoxicillin MEDICATIONS albuterol HFA (PROVENTIL HFA, VENTOLIN HFA) 90 mcg/actuation inhaler^Inhale 2 Puffs as instructed every 4 hours as needed for wheezing/shortness of breath.^Disp: 1 Each^Rfl: 2 hydroCHLOROthiazide 12.5 mg capsule^Take 1 capsule by mouth once daily.^Disp: 30 capsule^Rfl: 1 metFORMIN (GLUCOPHAGE) 500 mg tablet^Take 2 tablets by mouth twice daily with meals.^Disp: 360 tablet^Rfl: 1 citalopram (CELEXA) 20 mg tablet^Take 1 tablet by mouth once daily.^Disp: 90 tablet^Rfl: 1 amLODIPine (NORVASC) 5 mg tablet^Take 1 tablet by mouth once daily.^Disp: 90 tablet^Rfl: 1 ramipril (ALTACE) 10 mg capsule^Take 1 capsule by mouth twice daily.^Disp: 180 capsule^Rfl: 3 FAMILY HISTORY Problem Relation Age of Onset None Mother Diabetes Father Heart Father heart attack starting in his 30's, CHF, valvular heart disease, cardiac stent other (Agent orange) Father Dm/heart/foot amputation None Sister None Brother Breast Cancer Maternal Aunt triple negative Social History Tobacco Use Smoking status: Every Day Packs/day: 0.50 Years: 30.00 Additional pack years: 0.00 Total pack years: 15.00 Types: Cigarettes Smokeless tobacco: Never Vaping Use Vaping Use: Never used Substance Use Topics Alcohol use: Yes Comment: 1 drink per year Drug use: No PHYSICAL EXAM BP 134/86 Pulse 78 Resp 18 Wt 122.9 kg (271 lb) LMP 11/14/2022 (Exact Date) BMI 42.44 kg/m General Appearance: well appearing, in no acute distress, alert Lungs: Lungs clear to auscultation. No wheezing, rhonchi, rales. Heart: RRR without murmur, gallop, or rubs. No ectopy Health maintenance reviewed with patient: BP CONTROLLED (<130/80) Never done COLORECTAL CANCER SCREENING Never done DILATED RETINAL EXAM due on 09/03/2018 URINE ALBUMIN:CREATININE RATIO due on 09/25/2021 MAMMOGRAM due on 11/09/2021 COVID-19 VACCINE(1) due on 03/27/2023 PNEUMOCOCCAL(2 - PCV) due on 03/27/2023 SHINGRIX VACCINE(1 of 2) due on 04/30/2023 INFLUENZA(1) due on 02/14/2023 LDL CHOLESTEROL due on 03/27/2023 DIABETIC FOOT EXAM due on 04/30/2023 HBA1C due on 07/12/2023 ANNUAL PCP TEAM CHRONIC DISEASE VISIT due on 10/31/2023 DTAP,TDAP,TD(2 - Td or Tdap) due on 07/25/2025 PAP TESTING due on 11/09/2025 HPV TESTING due on 11/09/2025 HEPATITIS B Discontinued HEPATITIS C SCREENING Discontinued HIV SCREENING Discontinued DATA REVIEWED: Most recent labs ASSESSMENT/PLAN: 1. Polycythemia - ICD9: 238.4, ICD10: D75.1 (primary diagnosis) Evaluate further with: - ERYTHROPOIETIN/EPO - PATHOLOGIST INTERPRETATION WITH CBC AND DIFF May need referral to hematology 2. Essential hypertension - ICD9: 401.9, ICD10: I10 - Uncontrolled - Continue current medications - Increase HCTZ to 25 mg daily - Recommend home blood pressure monitoring, to bring results to next visit - Encouraged sodium restriction, DASH or Mediterranean diet - Discussed need for and benefit of weight loss. BMI 42.44 kg/(m^2) - Follow up in 2 months for hypertension visit - AMLODIPINE 5 MG TABLET 3. Type 2 diabetes mellitus without complication, without long-term current use of insulin (HCC) - ICD9: 250.00, ICD10: E11.9 - Worsening control - Continue current medications - Counseled on healthy diet and regular exercise - Discussed need for and benefit of weight loss. BMI 42.44 kg/(m^2) - METFORMIN 500 MG TABLET 4. Anxiety neurosis - ICD9: 300.00, ICD10: F41.1 Stable - CITALOPRAM 20 MG TABLET 5. Depressive disorder - ICD9: 311, ICD10: F32.A Stable - CITALOPRAM 20 MG TABLET Prescription instructions reviewed with patient as applicable. Potential red flag symptoms discussed with the patient. Reviewed appropriate action plan to take if red flag symptoms occur. Patient agreeable to treatment plan. Claudette Snyder APRN.LEAVE SPECIALIST documented in this encounter [facility] 01-20-2023 Note HNO ID: [id number] Author: Chelsie Rivera APRN.CRNA Service: ? Author Type: Nurse Recreational Director Type: Anesthesia Procedure Notes Filed: 01/20/2023 10:05 AM Note Text: ANESTHESIOLOGY PROCEDURE NOTE Airway General Information Procedure Start Time/Medication Administration: 01/20/2023 9:45 AM Patient location during procedure: OR Consent Obtained: Yes Patient identity confirmed: arm band Staffing STRAINER CLEANER: Chelsie Rivera APRN.STRAINER CLEANER Performed by: STRAINER CLEANER and anesthesiologist Indications and Patient Condition Indications for airway management: anesthesia Preoxygenated: yes anesthesia circuit Method: asleep Cricoid Pressure: No Manual In-Line Stabilization: No Difficult Mask: No Final Airway Details Final airway type: supraglottic airway Number of attempts at approach: 1 Final Supraglottic Airway: i-gel Size 4 Seal Adequate: yes Airway not difficult SIGNATURE: Chelsie Rivera APRN.CRNA PATIENT NAME: Dodie Brizuela DATE: January 20, 2023 TIME: 10:04 AM CSN: [id number] [facility] 01-19-2023 Note [facility] 01-19-2023 Instructions Holley Forde APRN.LEAVE SPECIALIST - 01/19/2023 11:20 AM EDT Wound Care - Keep the area clean and dry -Clean with soap and water . Apply mupirocin ointment 2 - 3 times a day. Cover with dressing until wound closed Keflex as ordered -Tylenol or Ibuprofen for discomfort -Call your primary care physician's office for a follow up appointment prn documented in this encounter [facility] 01-19-2023 History of Presen t illness Narrative Subjective The history is provided by the patient. No fertilizing machine operator was used. HPI Dodie Brizuela is a 52 year old female who presents today for CC of insect bite on left outer leg that occurred a month ago - she came in today because it does not appear to be healing properly. She has been using mupirocin. H/o venous insufficiency BP 138/80 Pulse 72 Temp 37.1 C (98.8 F) Resp 18 Wt 123.8 kg (273 lb) LMP 11/14/2022 (Exact Date) SpO2 94% BMI 42.76 kg/m Social History Tobacco Use Smoking status: Every Day Packs/day: 0.50 Years: 30.00 Total pack years: 15.00 Types: Cigarettes Smokeless tobacco: Never Vaping Use Vaping Use: Never used Substance Use Topics Alcohol use: Yes Comment: 1 drink per year Drug use: No PAST MEDICAL HISTORY Diagnosis Date Acute medial meniscal tear, right, subsequent encounter 05/04/2018 Added automatically from request for surgery [id number] Anxiety neurosis 04/11/2015 Depressive disorder 07/25/2015 Diabetes mellitus (HCC) 04/11/2015 Diverticulitis 04/11/2015 Two episodes of diverticulitis, 12 years ago (hospitalized), and then 6 years ago. Colon exam with polyps ? 5 years ago. HTN (hypertension) 04/11/2015 Iron deficiency anemia due to chronic blood loss 07/25/2015 Menorrhagia 07/20/2015 Non morbid obesity due to excess calories 07/25/2015 I have confirmed and edited as necessary, the [facility] Review of Systems Constitutional: Negative for chills and fever. Musculoskeletal: Negative for joint pain and myalgias. Skin: Negative for itching and rash. All other systems reviewed and are negative. Objective Physical Exam Vitals and nursing note reviewed. Pulmonary: Effort: Pulmonary effort is normal. Skin: General: Skin is warm and dry. Neurological: Mental Status: She is alert and oriented to person, place, and time. Psychiatric: Mood and Affect: Affect normal. ASSESSMENT/PLAN: 1. Open wound of right lower leg, initial encounter - ICD9: 891.0, ICD10: S81.801A Wound care discussed - see patient instruction Continue mupirocin Keflex as ordered If no improvement may need to see wound center Diagnosis and treatment plan were discussed and questions were answered to the patient's satisfaction. Pt acknowledged understanding of concepts and follow up plan. Specific signs and symptoms that would indicate the need for higher level of care were discussed in detail warranting prompt ER evaluation. Holley Forde APRN.SAMANTHA documented in this encounter [facility] 01-17-2023 Miscellaneous Notes Spoke to Dr. Keyes. She said it is okay to proceed with surgery as scheduled on Friday. Verified with [facility] drafter mechanical and she is still on the schedule. Patient notified. Beata Juares RN Spoke with patient. States she is feeling fine and her only complaint is her allergies. Using the Albuterol inhaler as instructed. Denies SOB. Would like to proceed with surgery. Attempted to contact [place] anesthesia. Button Machine Operator directed me to [facility] office. Phone number [phone]. Left a voicemail message to call our office back line. Please see RR note below when they call back. RR said that it will be 2 months before patient can be rescheduled. Lucita Winter RN Left message for patient to call office. Beata Juares RN Please get an update on how patient is feeling today. Chart in note how patient is doing. If worsening, leave surgery canceled. If she is feeling better then please contact [facility] and ask to speak to anesthesia charge person today to review this note/chart to see if we really need to cancel patient since it will be a prolonged amount of time to get her rescheduled. Samreen Marques MD If she is cancelled, I do not have operating time again in [place] until the first Friday. Samreen Marques MD Good Afternoon Dr. Marques, I had the pleasure of meeting Dodie at her [facility] appointment today. She is scheduled to have a hysteroscopy and polypectomy on 01/20/23. During our visit she reported a recent dx of URI. She has a chronic cough and was placed on albuterol prn. She has been using it daily for the last week. On exam her pulse ox was between 91-96% RA and she had occasional wheezes noted. I asked her to follow up with her PCP for optimization, but also reviewed the case with Dr. Keyes. Dr. Keyes has asked that she be delayed at least one week to recover from her URI and be optimized from a pulmonary standpoint. She should not need to return to [facility] if she is seen by her PCP and improved. Thank you for your time in this matter. Wilman Taveras PA-C [facility] Office: [phone] documented in this encounter [facility] 01-09-2023 Note [facility] 12-20-2022 Miscellaneous Notes It made me remove the date to sign the request FYI. thanks. Samreen Marques MD Patient is self pay and would like to have surgery at [facility] on 01/20/2023. Please approve order. documented in this encounter [facility] 12-09-2022 Miscellaneous Notes noted Called and spoke with patient, Endometrial polyp on specimen - offered Endosee in office to see if there really is a polyp present. Then discussed option for hysteroscopy D&C with possible polypectomy. She would like to proceed with hysteroscopy D&C. Please get surgery sheet and can schedule. Thanks, Suzanne Roblero APRN.CNM Patient had an endometrial biopsy and pelvic ultrasound done on 11/29/2022 and called requesting results. Patient aware provider is out of the office today. Please advise. documented in this encounter [facility] 11-29-2022 Note [facility] 11-29-2022 Note [facility] 11-29-2022 Instructions Philipp Haddad Cma - 11/29/2022 9:27 AM EDT YOUR RECOVERY After your biopsy you may have: Vaginal bleeding (less than a normal menstrual period) Mild cramping Do NOT put anything in the vagina for 1 week after your endometrial biopsy. This includes: tampons douches and refraining from having sexual intercourse If you have any discomfort, you may take an over the counter pain medication (motrin, advil, ibuprofen, tylenol, etc). If this does not relieve your discomfort, contact the office. It is okay to wear a sanitary pad until the discharge and spotting stops. RISKS Although problems seldom occur with endometrial biopsies, there can be some complications. You may feel faint during and shortly after the procedure as well as have some bleeding after the procedure. There is also a risk of infection after the procedure. These complications are rare and can be easily treated. You should contact you doctor is you have any of the following: Heavy bleeding (more than your normal period) Bleeding with clots Severe abdominal pain Fever (more than 100.4F) Foul smelling vaginal discharge RESULTS We will have the results of your biopsy in 1-2 weeks. If you do not hear the results of your biopsy after 2 weeks, please contact the office for the results. If you have any additional questions or concerns please do not hesitate to contact the office. documented in this encounter [facility] 11-29-2022 History of Presen t illness Narrative Dodie is a 52 year old who presents today for an endometrial biopsy for post menopausal bleeding. test: n/a UNIVERSAL PROTOCOL / SAFETY CHECKLIST Procedure to be Performed: Endometrial Biopsy Sign In: A Moment of CARE was completed. Personnel directly involved with the procedure wore the appropriate PPE (Personal Protective Equipment). No special equipment needed. Patient/Surrogate Stated/Verified: PATIENT VERIFIED(optional for EMERGENT procedures): Patient name, Date of , Relevant allergies, and The intended procedure Time Out Communication: Intended patient and procedure match the source documents. Consent documented and matches the intended procedure. No relevant labs, photos, and/or imaging studies were applicable for review. Correct side/site marked and visible. No medications required for procedure. No fire risk assessment and interventions applicable. No implant(s) inserted. Sign Out: SIGN OUT (optional for EMERGENT procedures): All specimen containers correctly labeled. All instruments, equipment, possible retained foreign bodies accounted for. Post-procedure follow-up management communicated and Plan of Care Visit completed when applicable. PROCEDURE: EXTERNAL GENITALIA: Normal in appearance without lesions VAGINA: Normal in appearance without lesions BIOPSY: Speculum placed into the vagina with excellent visualization of the cervix. Cervix cleaned with betadine. Uterus sounded to 9 cm. Pipelle inserted into the uterus without difficulty and endometrial biopsy obtained. Specimen labeled and sent to pathology. Hemostasis achieved. Procedure Summary: Patient tolerated procedure well. ASSESSMENT: post menopausal bleeding PLAN: Specimens labeled and sent to Pathology. Will notify patient of results in 1-2 weeks. Follow up in 2 weeks to discuss results. Suzanne Roblero APRN.CNM documented in this encounter [facility] 11-29-2022 History of Presen t illness Narrative Radiology Service Progress Note PATIENT NAME: Dodie Brizuela DATE OF SERVICE: November 29, 2022 TIME: 9:37 AM PATIENT IDENTITY VERIFICATION COMPLETED USING TWO (2) IDENTIFIERS: Name and Date of confirmed by patient verbally. FALL SCREENING: Has the patient had 2 falls in the last year or 1 fall with injury or currently using an Ambulatory Assistive Device (Walker, Cane, Wheelchair, Crutches, etc.)? No PATIENT GENDER DATA: Female. status: : No status: NO. PATIENT RELEVANT IMPLANT DATA REVIEWED: Not Applicable RADIOLOGY DEPARTMENT: Ultrasound PERIPHERAL IV DATA: Not applicable SIGNED BY: Irasema Jacobs RDMS November 29, 2022 9:37 AM documented in this encounter [facility] 11-18-2022 Note [facility] 10-30-2022 Note [facility] 10-18-2022 Miscellaneous Notes Patient has been identified by name and date of : Yes Requested Prescriptions Pending Prescriptions Disp Refills metFORMIN (GLUCOPHAGE) 500 mg tablet 360 tablet 3 Sig: Take 2 tablets by mouth twice daily with meals. citalopram (CELEXA) 20 mg tablet 90 tablet 3 Sig: Take 1 tablet by mouth once daily. RX INSTRUCTIONS: Patient needs today, she is out of medication. Patient aware RX will be sent to pharmacy. No need to notify patient. Norah Fitzgerald documented in this encounter [facility] 10-12-2022 Note [facility] 10-11-2022 Note [facility] 08-24-2022 Note [facility] 08-24-2022 History of Presen t illness Narrative Subjective The history is provided by the patient. No fertilizing machine operator was used. HPI Dodie Brizuela is a 51 year old female who presents today for CC of right red eye. She has noticed during the night that eye is swollen and when sits up with tear. She has not used any treatment Denies any foreign body. She recently had her BP medications adjusted. She denies any pain in eye, loss or change in vision, no headache. BP 150/104 Pulse 70 Temp 36.7 C (98 F) Resp 18 Wt 123.8 kg (273 lb) LMP 03/04/2018 (Approximate) SpO2 95% BMI 42.76 kg/m RECHECK BP 150/92 Social History Tobacco Use Smoking status: Every Day Packs/day: 0.50 Years: 30.00 Pack years: 15.00 Types: Cigarettes Smokeless tobacco: Never Vaping Use Vaping Use: Never used Substance Use Topics Alcohol use: Yes Comment: 1 drink per year Drug use: No PAST MEDICAL HISTORY Diagnosis Date Acute medial meniscal tear, right, subsequent encounter 05/04/2018 Added automatically from request for surgery [id number] Anxiety neurosis 04/11/2015 Depressive disorder 07/25/2015 Diabetes mellitus (HCC) 04/11/2015 Diverticulitis 04/11/2015 Two episodes of diverticulitis, 12 years ago (hospitalized), and then 6 years ago. Colon exam with polyps ? 5 years ago. HTN (hypertension) 04/11/2015 Iron deficiency anemia due to chronic blood loss 07/25/2015 Menorrhagia 07/20/2015 Non morbid obesity due to excess calories 07/25/2015 I have confirmed and edited as necessary, the [facility] Review of Systems Constitutional: Negative for chills and fever. Eyes: Positive for redness. Musculoskeletal: Negative for joint pain and myalgias. Skin: Negative for itching and rash. All other systems reviewed and are negative. Objective Physical Exam Vitals and nursing note reviewed. Eyes: General: Lids are normal. Lids are everted, no foreign bodies appreciated. Right eye: No foreign body. Left eye: No foreign body. Extraocular Movements: Extraocular movements intact. Conjunctiva/sclera: Right eye: Right conjunctiva is not injected. Hemorrhage present. Left eye: Left conjunctiva is not injected. Pupils: Pupils are equal, round, and reactive to light. Funduscopic exam: Right eye: Red reflex present. Left eye: Red reflex present. Pulmonary: Effort: Pulmonary effort is normal. Skin: General: Skin is warm and dry. Neurological: Mental Status: She is alert and oriented to person, place, and time. Psychiatric: Mood and Affect: Affect normal. ASSESSMENT/PLAN: 1. Eye problem - ICD9: V41.1, ICD10: H57.9 (primary diagnosis) Appears to be subconjunctival hemorrhage, some swelling noted Eye doctor is at [facility], and available today - called and spoke with them and will see today 2. Hypertension, essential - ICD9: 401.9, ICD10: I10 BP still elevated, but started new medications 2 weeks ago, will continue, and check at home, has follow up with Dr. Blanton Diagnosis and treatment plan were discussed and questions were answered to the patient's satisfaction. Pt acknowledged understanding of concepts and follow up plan. Specific signs and symptoms that would indicate the need for higher level of care were discussed in detail warranting prompt ER evaluation. Holley Forde APRN.CNP documented in this encounter [facility] 08-02-2022 Instructions Claudette Snyder APRN.CNP - 08/02/2022 11:39 AM EST Increase Norvasc (amlodipine) to 10 mg daily. documented in this encounter [facility] 08-02-2022 History of Presen t illness Narrative CC Patient presents with: F/U 3 Month HPI Dodie Brizuela is a 51 year old female who presents to the office for blood pressure. Her visit today is for follow-up. Patient was last seen for this approximately 3 months ago. BP is high again today. Patient reports she is under a lot of stress lately Medication changes: Yes Norvasc increased to 5 mg daily Taking all medications as prescribed: Yes Side effects: No Home BP's: No Denies: headache, chest pain, palpitations, dyspnea, and peripheral edema. Last 4 Encounter BP Readings: Date: BP: 08/02/2022 158/92 04/30/2022 136/80[bp merced average[ 04/02/2022 142/82 03/27/2022 146/88 Last 3 Encounter Wt Readings: Date: Wt: 08/02/2022 122 kg (269 lb) 04/30/2022 116.6 kg (257 lb) 04/02/2022 118.7 kg (261 lb 9.6 oz) Exercise: denies regular aerobic exercise. Diet: Watch for salt, fat, cholesterol: Yes. 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 Colon exam with polyps ? 5 years ago. HTN (hypertension) 04/11/2015 Iron deficiency anemia due to chronic blood loss 07/25/2015 Menorrhagia 07/20/2015 Non morbid obesity due to excess calories 07/25/2015 PAST SURGICAL HISTORY Procedure Laterality Date ARTHRS KNE SURG W/MENISCECTOMY MED/LAT W/SHVG Right 06/12/2018 Right knee arthroscopic medial menisectomy, medial and PF chondroplasties COLONOSCOPY FLX DX W/COLLJ SPEC WHEN PFRMD 2009 Colonoscopy ENDOMETRIAL BX W/WO ENDOCERVIX BX W/O DILAT SPX 07/03/2015 neg NEUROPLASTY &/TRANSPOS MEDIAN NRV CARPAL TUNNE Right Carpal tunnel decomp TUBAL LIGATION, 1993 ALLERGIES Amoxicillin MEDICATIONS metFORMIN (GLUCOPHAGE) 500 mg tablet^Take 2 tablets by mouth twice daily with meals.^Disp: 360 tablet^Rfl: 0 citalopram (CELEXA) 20 mg tablet^Take 1 tablet by mouth once daily.^Disp: 90 tablet^Rfl: 0 ramipril (ALTACE) 10 mg capsule^Take 1 capsule by mouth twice daily.^Disp: 180 capsule^Rfl: 3 amLODIPine (NORVASC) 5 mg tablet^Take 1 tablet by mouth once daily.^Disp: 90 tablet^Rfl: 1 FAMILY HISTORY Problem Relation Age of Onset None Mother Diabetes Father Heart Father heart attack starting in his 30's, CHF, valvular heart disease, cardiac stent other (Agent orange) Father Dm/heart/foot amputation None Sister None Brother Breast Cancer Maternal Aunt triple negative Social History Tobacco Use Smoking status: Every Day Packs/day: 0.50 Years: 30.00 Pack years: 15.00 Types: Cigarettes Smokeless tobacco: Never Vaping Use Vaping Use: Never used Substance Use Topics Alcohol use: Yes Comment: 1 drink per year Drug use: No PHYSICAL EXAM BP 158/92 Pulse 88 Resp 18 Wt 122 kg (269 lb) LMP 03/04/2018 (Approximate) BMI 42.13 kg/m General Appearance: well appearing, in no acute distress, alert Lungs: Lungs clear to auscultation. No wheezing, rhonchi, rales. Heart: RRR without murmur, gallop, or rubs. No ectopy DATA REVIEWED: Most recent labs ASSESSMENT/PLAN: 1. Essential hypertension - ICD9: 401.9, ICD10: I10 - suboptimal control - Continue current medication(s) - Increase Norvasc to 10 mg daily - Encouraged dietary sodium restriction/DASH diet and limiting caffeine intake - Recommended regular aerobic exercise. - Recommend home blood pressure monitoring, to bring results in on next visit - Discussed need and benefit for weight loss. - Recheck in 3 months, sooner should new symptoms or problems arise. - Goal of BP <130/80 - AMLODIPINE 10 MG TABLET Prescription instructions reviewed with patient as applicable. Potential red flag symptoms discussed with the patient. Reviewed appropriate action plan to take if red flag symptoms occur. Patient agreeable to treatment plan Claudette Snyder APRN.CNP documented in this encounter [facility] 07-19-2022 Miscellaneous Notes Refill sent. Patient called to see if this medication can be sent today. Said she is completely out of her metformin. Please call her at [phone] when sent to the pharmacy. last seen BILINGUAL CUSTOMER SERVICE SPECIALIST 04/30/22 Next appt with BILINGUAL CUSTOMER SERVICE SPECIALIST 07/30/22. Patient has been identified by name and date of : Yes Requested Prescriptions Pending Prescriptions Disp Refills metFORMIN (GLUCOPHAGE) 500 mg tablet 360 tablet 3 Sig: Take 2 tablets by mouth twice daily with meals. citalopram (CELEXA) 20 mg tablet 90 tablet 3 Sig: Take 1 tablet by mouth once daily. RX INSTRUCTIONS: Patient is out of the metformin, can we please send this today? Patient aware RX will be sent to pharmacy. No need to notify patient. [facility] documented in this encounter [facility] 07-03-2022 Miscellaneous Notes Last office visit: 04/30/22 Next appointment scheduled: 07/31/22 Last labs: 03/27/22 Patient has been identified by name and date of : Yes Requested Prescriptions Pending Prescriptions Disp Refills ramipril (ALTACE) 10 mg capsule 180 capsule 3 Sig: Take 1 capsule by mouth twice daily. RX INSTRUCTIONS: Patient aware RX will be sent to pharmacy. No need to notify patient. [facility] documented in this encounter [facility] 04-30-2022 Instructions Claudette Snyder APRN.LEAVE SPECIALIST - 04/30/2022 9:31 AM EST Images from the original note were not included. Miralax/Dulcolax Bowel Prep For this bowel preparation, you will need to purchase the following medications at any pharmacy: Over the counter Miralax (generic name is polyethylene glycol) 8.3 oz or 238 grams Four (4) Dulcolax (generic name is Bisacodyl) tablets 3 days prior to your procedure, you need to be on a low fiber diet (Such as popcorn, beans, seeds, nuts, salad and raw vegetables, corn, fresh and dried fruit and multi-grain bread) YOU MUST BE ON CLEAR LIQUIDS FOR 2 FULL DAYS PRIOR TO YOUR COLONOSCOPY Day one which would be two days before your colonoscopy, you will need to be on clear liquids all day. You may have coffee or tea-black only (no cream), clear broths (beef, chicken or vegetable), apple juice, white grape juice, pop, Gatorade, Powerade, lemonade, Jello, popsicles, Les-aid, and water-But nothing red or dark purple in color and no dairy products, tomato or orange juices. Day two which would be the day before your colonoscopy continue clear liquids all day as above. And follow the instructions below: 8:00 AM - Mix the Miralax with 64 oz of Gatorade or another clear liquid of choice and place in refrigerator. Most people say the drink is better cold. 4:00 PM - Take 2 of the Dulcolax tablets with 8 oz of water. 6:00 PM - Start to drink the Miralax mixture. You must finish it by midnight. 8:00 PM - Take the other 2 Dulcolax tablets with 8 oz of water. You may continue to drink clear liquids while you are taking your prep and after you finish it as long as it is before midnight. Drink lots of fluids so you don t become dehydrated. Nothing to drink after midnight the night before the procedure unless you are instructed differently by the physician or nurses. Please remember to take your normal medications the morning of the procedure with a small sip of water especially your blood pressure medications. If you are diabetic, you need to contact your physician about how to take your diabetic medications and/or insulin during the prepping period and the day of your procedure. Any questions please call: Dr. Langston or Dr. Davis [phone] [place] [phone] Dr. Palm [phone] [facility] nurses [phone] documented in this encounter [facility] 04-30-2022 History of Presen t illness Narrative CC: Patient presents with: follow up - blood pressure HPI Dodie Brizuela is a 51 year old female who presents today for blood pressure follow-up. She was last seen for this approximately 1 month ago. Medication changes: Yes Norvasc increased to 5 mg daily Taking all medications as prescribed: Yes Side effects: No Home BP's: No Denies: headache, chest pain, palpitations, dyspnea, and peripheral edema. Last 4 Encounter BP Readings: Date: BP: 04/30/2022 154/91 04/02/2022 142/82 03/27/2022 146/88 03/13/2022 146/90 Last 3 Encounter Wt Readings: Date: Wt: 04/30/2022 116.6 kg (257 lb) 04/02/2022 118.7 kg (261 lb 9.6 oz) 03/27/2022 117.9 kg (260 lb) REVIEW OF SYSTEMS See HPI PAST MEDICAL HISTORY Diagnosis Date Acute medial meniscal tear, right, subsequent encounter 05/04/2018 Added automatically from request for surgery [id number] Anxiety neurosis 04/11/2015 Depressive disorder 07/25/2015 Diabetes mellitus (HCC) 04/11/2015 Diverticulitis 04/11/2015 Two episodes of diverticulitis, 12 years ago (hospitalized), and then 6 years ago. Colon exam with polyps ? 5 years ago. HTN (hypertension) 04/11/2015 Iron deficiency anemia due to chronic blood loss 07/25/2015 Menorrhagia 07/20/2015 Non morbid obesity due to excess calories 07/25/2015 PAST SURGICAL HISTORY Procedure Laterality Date ARTHRS KNE SURG W/MENISCECTOMY MED/LAT W/SHVG Right 06/12/2018 Right knee arthroscopic medial menisectomy, medial and PF chondroplasties COLONOSCOPY FLX DX W/COLLJ SPEC WHEN PFRMD 2009 Colonoscopy ENDOMETRIAL BX W/WO ENDOCERVIX BX W/O DILAT SPX 07/03/2015 neg NEUROPLASTY &/TRANSPOS MEDIAN NRV CARPAL TUNNE Right Carpal tunnel decomp TUBAL LIGATION, 1993 ALLERGIES Amoxicillin MEDICATIONS amLODIPine (NORVASC) 5 mg tablet^Take 1 tablet by mouth once daily.^Disp: 30 tablet^Rfl: 1 citalopram (CELEXA) 20 mg tablet^Take 1 tablet by mouth once daily.^Disp: 90 tablet^Rfl: 0 metFORMIN (GLUCOPHAGE) 500 mg tablet^Take 2 tablets by mouth twice daily with meals.^Disp: 360 tablet^Rfl: 0 ramipril (ALTACE) 10 mg capsule^Take 1 capsule by mouth twice daily.^Disp: 180 capsule^Rfl: 0 FAMILY HISTORY Problem Relation Age of Onset None Mother Diabetes Father Heart Father heart attack starting in his 30's, CHF, valvular heart disease, cardiac stent other (Agent orange) Father Dm/heart/foot amputation None Sister None Brother Breast Cancer Maternal Aunt triple negative Social History Tobacco Use Smoking status: Every Day Packs/day: 0.50 Years: 30.00 Pack years: 15.00 Types: Cigarettes Smokeless tobacco: Never Vaping Use Vaping Use: Never used Substance Use Topics Alcohol use: Yes Comment: 1 drink per year Drug use: No PHYSICAL EXAM BP 136/80 Pulse 72 Resp 18 Wt 116.6 kg (257 lb) LMP 03/04/2018 (Approximate) BMI 40.25 kg/m General Appearance: well appearing, in no acute distress, alert Lungs: Lungs clear to auscultation. No wheezing, rhonchi, rales. Heart: RRR without murmur, gallop, or rubs. No ectopy Feet:Shoes and socks removed, No deformities, ulcers, calluses, normal distal pulses, sensitive to 10 gm monofilament, vibratory perception normal, and no edema Health maintenance reviewed with patient: HEPATITIS C SCREENING Never done HIV SCREENING Never done BP CONTROLLED (<130/80) Never done COLORECTAL CANCER SCREENING Never done DILATED RETINAL EXAM due on 09/03/2018 SHINGRIX VACCINE(1 of 2) Never done URINE ALBUMIN:CREATININE RATIO due on 09/25/2021 DIABETIC FOOT EXAM due on 11/06/2021 MAMMOGRAM due on 11/09/2021 INFLUENZA(1) due on 12/13/2022 COVID-19 VACCINE(1) due on 03/27/2023 PNEUMOCOCCAL(2 - PCV) due on 03/27/2023 HBA1C due on 09/25/2022 LDL CHOLESTEROL due on 03/27/2023 ANNUAL PCP TEAM CHRONIC DISEASE VISIT due on 03/27/2023 DTAP,TDAP,TD(2 - Td or Tdap) due on 07/25/2025 PAP TESTING due on 11/09/2025 HPV TESTING due on 11/09/2025 HEPATITIS B Discontinued DATA REVIEWED: Most recent labs ASSESSMENT/PLAN: 1. Essential hypertension - ICD9: 401.9, ICD10: I10 (primary diagnosis) - fair control - Continue current medication(s) - Recommended regular aerobic exercise. - Recommend home blood pressure monitoring, to bring results in on next visit - Recheck in 3 months, sooner should new symptoms or problems arise. - Goal of BP <130/80 2. Special screening for malignant neoplasms, colon - ICD9: V76.51, ICD10: Z12.11 - COLONOSCOPY SCREENING Prescription instructions reviewed with patient as applicable. Potential red flag symptoms discussed with the patient. Reviewed appropriate action plan to take if red flag symptoms occur. Patient agreeable to treatment plan. Claudette Snyder, STEREOPLOTTER OPERATOR.LEAVE SPECIALIST RUST OPEN ACCESS QUESTIONNAIRE 1. Are you currently having any new or unusual stomach/gastrointestinal issues at this time such as constipation, diarrhea, abdominal pain, rectal bleeding etc?No 2. Do you have any difficulty swallowing? No 3. Do you have any implanted devices such as a defibrillator, pacemaker, cardiac stents or deep brain stimulator? No 4. Do you take any Blood thinners such as Coumadin, Plavix, Xarelto, Eliquis, Brilinta or any other blood thinner? No 5. Do you have any new or past cardiac (heart) or pulmonary (lung) issues? No 6. Do you currently use any oxygen? No 7. Have you been hospitalized in the past 6 weeks? No 8. Have you had difficulty with anesthesia previously re: Difficult intubation? No Other difficulty or allergic reaction to anesthesia other than post op N/V? No 9. Are you on dialysis? No 10. Do you have any bleeding disorders such as hemophilia or Factor 5? No 11. Are you an Insulin Dependent Diabetic? No IF ANY OF THE TOP ELEVEN QUESTIONS ARE ANSWERED YES PLEASE SCHEDULE THE PATIENT FOR A CONSULT. N/A 12. Is the patient's BMI 40 or greater? No:Body mass index is 40.25 kg/m .. 13. Do you take any narcotics or anti-Anxiety medications? No 14. Do you use any illegal or recreational drugs including marijuana? No 15. Any alcohol use: No. 16. Have you been diagnosed with chronic liver disease such as hepatitis or cirrhosis? No 17. Do you have a seizure disorder? No 18. Do you have ulcerative colitis or Crohn's disease? No 19. Are you or could you be ? No 20. Any other important health information we should be made aware of prior to your colonoscopy? No To be completed by LIP: Did patient have MAC anesthesia with a previous endoscopy procedure? No Patient appropriate for Open Access Colonoscopy: Yes: appropriate for Open Access Procedure Checklist: Prior to closing the encounter: Complete questionnaire: Yes Confirm Prep order has been Ordered/Pended: Yes. Patient's procedure could be delayed if not given the script for the prep. Please ensure the prep is escripted to pharmacy or printed. Instructions for the prep will print upon filing or pending this smartset. Please send all open access questionnaires to [facility] Pool #[id number] documented in this encounter [facility] 04-02-2022 History of Presen t illness Narrative CC: Patient presents with: Sore Throat: St, MOHR and ears hurt x 4 days HPI: Dodie Brizuela is a 51 year old female who presents to the office with complaint of sore throat and ear symptoms for a few days. Symptoms are worsening Associated symptoms includes sore throat and headache. Denies nausea, vomiting , and diarrhea. Treatments tried include nothing so far. with no relief of symptoms. Sick contacts: unknown. History of asthma, frequent episodes of bronchitis, chronic bronchitis, bronchiectasis or COPD: No Smoker: No Seasonal/environmental allergies: No The ROS is otherwise negative. The patient's pmh, medications, allergies, and past visits are reviewed. PHYSICAL EXAM: LMP 03/04/2018 (Approximate) General appearance: alert, cooperative, pleasant, in no acute distress Head: Normocephalic Eyes: EOM's intact, conjunctiva pink and moist, no icterus, sclera white, non-injected Ears: Right ear: External ear/canal- Normal, TM - clear with good landmarks. Left ear: External ear/canal- Normal, TM - clear with good landmarks Oropharynx:moderate erythema, without exudates present Heart: Negative. RRR without obvious murmur, gallop, or rubs. No ectopy. 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 Colon exam with polyps ? 5 years ago. HTN (hypertension) 04/11/2015 Iron deficiency anemia due to chronic blood loss 07/25/2015 Menorrhagia 07/20/2015 Non morbid obesity due to excess calories 07/25/2015 PAST SURGICAL HISTORY Procedure Laterality Date ARTHRS KNE SURG W/MENISCECTOMY MED/LAT W/SHVG Right 06/12/2018 Right knee arthroscopic medial menisectomy, medial and PF chondroplasties COLONOSCOPY FLX DX W/COLLJ SPEC WHEN PFRMD 2009 Colonoscopy ENDOMETRIAL BX W/WO ENDOCERVIX BX W/O DILAT SPX 07/03/2015 neg NEUROPLASTY &/TRANSPOS MEDIAN NRV CARPAL TUNNE Right Carpal tunnel decomp TUBAL LIGATION, 1993 ALLERGIES Amoxicillin MEDICATIONS amLODIPine (NORVASC) 5 mg tablet^Take 1 tablet by mouth once daily.^Disp: 30 tablet^Rfl: 1 citalopram (CELEXA) 20 mg tablet^Take 1 tablet by mouth once daily.^Disp: 90 tablet^Rfl: 0 metFORMIN (GLUCOPHAGE) 500 mg tablet^Take 2 tablets by mouth twice daily with meals.^Disp: 360 tablet^Rfl: 0 ramipril (ALTACE) 10 mg capsule^Take 1 capsule by mouth twice daily.^Disp: 180 capsule^Rfl: 0 FAMILY HISTORY Problem Relation Age of Onset None Mother Diabetes Father Heart Father heart attack starting in his 30's, CHF, valvular heart disease, cardiac stent other (Agent orange) Father Dm/heart/foot amputation None Sister None Brother Breast Cancer Maternal Aunt triple negative Social History Tobacco Use Smoking status: Every Day Packs/day: 0.50 Years: 30.00 Pack years: 15.00 Types: Cigarettes Smokeless tobacco: Never Vaping Use Vaping Use: Never used Substance Use Topics Alcohol use: Yes Comment: 1 drink per year Drug use: No ASSESSMENT/PLAN: 1. Sore throat - ICD9: 462, ICD10: J02.9 - STREP A MOLECULAR (POC) - negative Prednisone daily for 5 days. Prescription instructions reviewed with patient as applicable. Potential red flag symptoms discussed with the patient. Reviewed appropriate action plan to take if red flag symptoms occur. Patient agreeable to treatment plan. Antwan Barnett APRN.SAMANTHA documented in this encounter [facility] 03-29-2022 Miscellaneous Notes Patient notified of below results/recommendation, verbalized understanding. Sharmin Bob LPN Please let the patient know overall her labs looked good. Her HgbA1c was 6.6, diabetes well controlled. Hemoglobin and Hematocrit were elevated. This needs followed up on with further lab work, she can have it done when she come in on Friday for her echocardiogram. She does not need to fast Claudette Snyder APRN.CNP documented in this encounter [facility] 03-13-2022 History of Presen t illness Narrative Patient presents with: Chest Congestion: cough, sob and left rib pain x 4 days HPI: Fell out of bed 5 days ago and injured her left side. Negative rib xray at [facility] 03/08/22. She has been coughing since and would like to make sure she is not getting pneumonia. She is leaving for [place] this weekend. Positive symptoms: Cough with production, Shortness of breath, left Chest pain, Nasal Congestion, nose swollen from fall, Negative symptoms: Sore throat, Fever, Vomiting, Diarrhea, Rhinorrhea, malaise OTC: Ibuprofen, intentional deep breaths PAST MEDICAL HISTORY Diagnosis Date Acute medial meniscal tear, right, subsequent encounter 05/04/2018 Added automatically from request for surgery [id number] Anxiety neurosis 04/11/2015 Depressive disorder 07/25/2015 Diabetes mellitus (HCC) 04/11/2015 Diverticulitis 04/11/2015 Two episodes of diverticulitis, 12 years ago (hospitalized), and then 6 years ago. Colon exam with polyps ? 5 years ago. HTN (hypertension) 04/11/2015 Iron deficiency anemia due to chronic blood loss 07/25/2015 Menorrhagia 07/20/2015 Non morbid obesity due to excess calories 07/25/2015 MEDICATIONS: Current Outpatient Medications Medication Sig ramipril (ALTACE) 10 mg capsule Take 1 capsule by mouth twice daily. amLODIPine (NORVASC) 2.5 mg tablet Take 1 tablet by mouth once daily. citalopram (CELEXA) 20 mg tablet Take 1 tablet by mouth once daily. metFORMIN (GLUCOPHAGE) 500 mg tablet Take 2 tablets by mouth twice daily with meals. albuterol HFA (PROVENTIL HFA, VENTOLIN HFA) 90 mcg/actuation inhaler Inhale 2 Puffs as instructed every 4 hours as needed for Wheezing/Shortness of Breath. (Patient not taking: Reported on 03/13/2022) No current facility-administered medications for this visit. ALLERGIES: ALLERGIES Allergen Reactions Amoxicillin Hives VITALS: BP 146/90 Pulse 70 Temp 37.2 C (98.9 F) Resp 18 Wt 117.9 kg (260 lb) LMP 03/04/2018 (Approximate) SpO2 94% BMI 40.72 kg/m PHYSICAL EXAM: GEN: Pleasant, in no acute distress. HEENT: PERRL, EOMI, conjunctiva clear, linear ecchymosis left side of the nose Throat: moist mucous membranes, no erythema, no exudate Neck: supple, no thyromegaly, no lymphadenopathy HEART: regular rate and rhythm, 2/6 systolic murmur RUSB. LUNGS: mild bilateral wheezes or crackles, diminished air exchange left base. no increased WOB CHEST: no midline spinous, paraspinal, or lateral rib tenderness. Tender lower ribs in the lateral clavicular line. ASSESSMENT/PLAN: 1. Acute cough - ICD9: 786.2, ICD10: R05.1 (primary diagnosis) 2. Rib pain on left side - ICD9: 786.50, ICD10: R07.81 - XR CHEST 2V FRONTAL/LAT - poor inflation, bibasilar atelectasis/opacities High risk for developing pneumonia after rib contusion and increasing productive cough. Reports she fell out of bed sleeping in a different position to distance herself from her who has a cold. Start - DOXYCYCLINE MONOHYDRATE 100 MG CAPSULE 3. Murmur, cardiac - ICD9: 785.2, ICD10: R01.1 New finding over the aortic valve. Schedule follow up with primary care. Epi Morris MD documented in this encounter [facility] 10-29-2021 History of Presen t illness Narrative Images from the original note were not included. Subjective The history is provided by the patient. No fertilizing machine operator was used. HPI Dodie Brizuela is a 51 year old female who presents today for CC of lower abdominal pain and pressure. This started in the past 24 hours. She was seen yesterday in ED had negative covid/flu, urine dip negative. She was discharged with viral syndrome. She has been using advil. Fever as high as 103.5, will come down to 99.9 with medications. H/o diverticulitis, last seen in 2014 for it. BP 132/82 Pulse 85 Temp 37.7 C (99.9 F) Resp 18 Wt 122.7 kg (270 lb 6.4 oz) LMP 03/04/2018 (Approximate) SpO2 96% BMI 42.35 kg/m Social History Tobacco Use Smoking status: Current Every Day Smoker Packs/day: 0.50 Years: 15.00 Pack years: 7.50 Types: Cigarettes Smokeless tobacco: Never Used Vaping Use Vaping Use: Never used Substance Use Topics Alcohol use: Yes Comment: 1 drink per year Drug use: No PAST MEDICAL HISTORY Diagnosis Date Acute medial meniscal tear, right, subsequent encounter 05/04/2018 Added automatically from request for surgery [id number] Anxiety neurosis 04/11/2015 Depressive disorder 07/25/2015 Diabetes mellitus (HCC) 04/11/2015 Diverticulitis 04/11/2015 Two episodes of diverticulitis, 12 years ago (hospitalized), and then 6 years ago. Colon exam with polyps ? 5 years ago. HTN (hypertension) 04/11/2015 Iron deficiency anemia due to chronic blood loss 07/25/2015 Menorrhagia 07/20/2015 Non morbid obesity due to excess calories 07/25/2015 I have confirmed and edited as necessary, the [facility] Review of Systems Constitutional: Positive for fever (99.1). Negative for chills and malaise/fatigue. Gastrointestinal: Negative for abdominal pain. Genitourinary: Positive for dysuria, frequency and urgency. Negative for flank pain and hematuria. Objective Physical Exam Vitals and nursing note reviewed. Constitutional: Appearance: Normal appearance. Abdominal: General: Bowel sounds are normal. There is no abdominal bruit. Palpations: Abdomen is not rigid. There is no mass or pulsatile mass. Tenderness: Tenderness: moderate. There is no guarding or rebound. Negative signs include Varela's sign and McBurney's sign. Neurological: Mental Status: She is alert and oriented to person, place, and time. Psychiatric: Mood and Affect: Affect normal. .ASSESSMENT/PLAN: 1. Dysuria - ICD9: 788.1, ICD10: R30.0 (primary diagnosis) Urine dip negative 2. Lower abdominal pain - ICD9: 789.09, ICD10: R10.30 - H/o diverticulitis, last flare 2014 - possible fistula 3. Fever, unspecified fever cause - ICD9: 780.60, ICD10: R50.9 Due to nature of patient's complaint and lack of investigative tools available at [facility], recommend patient be seen at nearest ED for further work up. Diagnosis and treatment plan were discussed and questions were answered to the patient's satisfaction. Pt acknowledged understanding of concepts and follow up plan. Specific signs and symptoms that would indicate the need for higher level of care were discussed in detail warranting prompt ER evaluation. Holley Forde APRN.SAMANTHA documented in this encounter [facility] 10-24-2021 History of Presen t illness Narrative POPULATION HEALTH NAVIGATION OUTREACH Action/FYI Pt identified by name and : YES, via phone Outreach Outcome/Action Unable to reach patient: Left message Reason for Outreach Care Gap or Scheduling/Wellness visits Payer: No coverage found. Care Gap Reviewed:: Follow-up appointment HBA1C Reminder: Reminder note to check Health Maintenance for items below Health Maintenance items due: COVID-19 VACCINE(1) Never done HEPATITIS C SCREENING Never done HIV SCREENING Never done BP CONTROLLED (<130/80) Never done COLORECTAL CANCER SCREENING Never done DILATED RETINAL EXAM due on 09/03/2018 SHINGRIX VACCINE(1 of 2) Never done HBA1C due on 03/27/2021 URINE ALBUMIN:CREATININE RATIO due on 09/25/2021 LDL CHOLESTEROL due on 09/25/2021 DIABETIC FOOT EXAM due on 11/06/2021 MAMMOGRAM due on 11/09/2021 Sharmin Bob LPN October 24, 2021 4:53 PM documented in this encounter [facility] documented as of this encounter (statuses as of 10/24/2021) [facility] History of Past illness Narrative* Problem Noted Date Resolved Date Iron deficiency anemia due to chronic blood loss 07/25/2015 12/13/2019 Non morbid obesity due to excess calories 201511/06/2020 Diverticulitis 04/11/2015 03/01/2019 Overview: Two episodes of diverticulitis, 12 years ago (hospitalized), and then 6 years ago. Colon exam with polyps ? 5 years ago. documented as of this encounter (statuses as of 10/29/2021) [facility] History of Past illness Narrative* Problem Noted Date Resolved Date Iron deficiency anemia due to chronic blood loss 07/25/2015 12/13/2019 Non morbid obesity due to excess calories 201511/06/2020 Diverticulitis 04/11/2015 03/01/2019 Overview: Two episodes of diverticulitis, 12 years ago (hospitalized), and then 6 years ago. Colon exam with polyps ? 5 years ago. documented as of this encounter (statuses as of 12/17/2021) [facility] History of Past illness Narrative* Problem Noted Date Resolved Date Iron deficiency anemia due to chronic blood loss 07/25/2015 12/13/2019 Non morbid obesity due to excess calories 201511/06/2020 Diverticulitis 04/11/2015 03/01/2019 Overview: Two episodes of diverticulitis, 12 years ago (hospitalized), and then 6 years ago. Colon exam with polyps ? 5 years ago. documented as of this encounter (statuses as of 03/13/2022) [facility] History of Past illness Narrative* Problem Noted Date Resolved Date Iron deficiency anemia due to chronic blood loss 07/25/2015 12/13/2019 Non morbid obesity due to excess calories 201511/06/2020 Diverticulitis 04/11/2015 03/01/2019 Overview: Two episodes of diverticulitis, 12 years ago (hospitalized), and then 6 years ago. Colon exam with polyps ? 5 years ago. documented as of this encounter (statuses as of 03/29/2022) [facility] History of Past illness Narrative* Problem Noted Date Resolved Date Iron deficiency anemia due to chronic blood loss 07/25/2015 12/13/2019 Non morbid obesity due to excess calories 201511/06/2020 Diverticulitis 04/11/2015 03/01/2019 Overview: Two episodes of diverticulitis, 12 years ago (hospitalized), and then 6 years ago. Colon exam with polyps ? 5 years ago. documented as of this encounter (statuses as of 04/02/2022) [facility] History of Past illness Narrative* Problem Noted Date Resolved Date Iron deficiency anemia due to chronic blood loss 07/25/2015 12/13/2019 Non morbid obesity due to excess calories 201511/06/2020 Diverticulitis 04/11/2015 03/01/2019 Overview: Two episodes of diverticulitis, 12 years ago (hospitalized), and then 6 years ago. Colon exam with polyps ? 5 years ago. documented as of this encounter (statuses as of 04/30/2022) [facility] History of Past illness Narrative* Problem Noted Date Resolved Date Iron deficiency anemia due to chronic blood loss 07/25/2015 12/13/2019 Non morbid obesity due to excess calories 201511/06/2020 Diverticulitis 04/11/2015 03/01/2019 Overview: Two episodes of diverticulitis, 12 years ago (hospitalized), and then 6 years ago. Colon exam with polyps ? 5 years ago. documented as of this encounter (statuses as of 07/03/2022) [facility] History of Past illness Narrative* Problem Noted Date Resolved Date Iron deficiency anemia due to chronic blood loss 07/25/2015 12/13/2019 Non morbid obesity due to excess calories 201511/06/2020 Diverticulitis 04/11/2015 03/01/2019 Overview: Two episodes of diverticulitis, 12 years ago (hospitalized), and then 6 years ago. Colon exam with polyps ? 5 years ago. documented as of this encounter (statuses as of 07/20/2022) [facility] History of Past illness Narrative* Problem Noted Date Resolved Date Iron deficiency anemia due to chronic blood loss 07/25/2015 12/13/2019 Non morbid obesity due to excess calories 201511/06/2020 Diverticulitis 04/11/2015 03/01/2019 Overview: Two episodes of diverticulitis, 12 years ago (hospitalized), and then 6 years ago. Colon exam with polyps ? 5 years ago. documented as of this encounter (statuses as of 08/02/2022) [facility] History of Past illness Narrative* Problem Noted Date Resolved Date Iron deficiency anemia due to chronic blood loss 07/25/2015 12/13/2019 Non morbid obesity due to excess calories 201511/06/2020 Diverticulitis 04/11/2015 03/01/2019 Overview: Two episodes of diverticulitis, 12 years ago (hospitalized), and then 6 years ago. Colon exam with polyps ? 5 years ago. documented as of this encounter (statuses as of 08/24/2022) [facility] History of Past illness Narrative* Problem Noted Date Resolved Date Iron deficiency anemia due to chronic blood loss 07/25/2015 12/13/2019 Non morbid obesity due to excess calories 201511/06/2020 Diverticulitis 04/11/2015 03/01/2019 Overview: Two episodes of diverticulitis, 12 years ago (hospitalized), and then 6 years ago. Colon exam with polyps ? 5 years ago. documented as of this encounter (statuses as of 10/19/2022) [facility] History of Past illness Narrative* Problem Noted Date Resolved Date Iron deficiency anemia due to chronic blood loss 07/25/2015 12/13/2019 Non morbid obesity due to excess calories 201511/06/2020 Diverticulitis 04/11/2015 03/01/2019 Overview: Two episodes of diverticulitis, 12 years ago (hospitalized), and then 6 years ago. Colon exam with polyps ? 5 years ago. documented as of this encounter (statuses as of 11/29/2022) [facility] History of Past illness Narrative* Problem Noted Date Resolved Date Iron deficiency anemia due to chronic blood loss 07/25/2015 12/13/2019 Non morbid obesity due to excess calories 201511/06/2020 Diverticulitis 04/11/2015 03/01/2019 Overview: Two episodes of diverticulitis, 12 years ago (hospitalized), and then 6 years ago. Colon exam with polyps ? 5 years ago. documented as of this encounter (statuses as of 12/10/2022) [facility] History of Past illness Narrative* Problem Noted Date Diagnosed Date Resolved Date Iron deficiency anemia due t o chronic blood loss 07/25/2015 12/13/2019 Non morbid obesity due to excess calories 07/25/2015 11/06/2020 Diverticulitis 04/11/2015 03/01/2019 Overview: Two episodes of diverticulitis, 12 years ago (hospitalized), and then 6 years ago. Colon exam with polyps ? 5 years ago. documented as of this encounter (statuses as of 12/23/2022) [facility] History of Past illness Narrative* Problem Noted Date Diagnosed Date Resolved Date Iron deficiency anemia due t o chronic blood loss 07/25/2015 12/13/2019 Non morbid obesity due to excess calories 07/25/2015 11/06/2020 Diverticulitis 04/11/2015 03/01/2019 Overview: Two episodes of diverticulitis, 12 years ago (hospitalized), and then 6 years ago. Colon exam with polyps ? 5 years ago. documented as of this encounter (statuses as of 01/01/2023) [facility] History of Past illness Narrative* Problem Noted Date Diagnosed Date Resolved Date Iron deficiency anemia due t o chronic blood loss 07/25/2015 12/13/2019 Non morbid obesity due to excess calories 07/25/2015 11/06/2020 Diverticulitis 04/11/2015 03/01/2019 Overview: Two episodes of diverticulitis, 12 years ago (hospitalized), and then 6 years ago. Colon exam with polyps ? 5 years ago. documented as of this encounter (statuses as of 01/17/2023) [facility] History of Past illness Narrative* Problem Noted Date Diagnosed Date Resolved Date Iron deficiency anemia due t o chronic blood loss 07/25/2015 12/13/2019 Non morbid obesity due to excess calories 07/25/2015 11/06/2020 Diverticulitis 04/11/2015 03/01/2019 Overview: Two episodes of diverticulitis, 12 years ago (hospitalized), and then 6 years ago. Colon exam with polyps ? 5 years ago. documented as of this encounter (statuses as of 01/19/2023) [facility] History of Past illness Narrative* Problem Noted Date Diagnosed Date Resolved Date Iron deficiency anemia due t o chronic blood loss 07/25/2015 12/13/2019 Non morbid obesity due to excess calories 07/25/2015 11/06/2020 Diverticulitis 04/11/2015 03/01/2019 Overview: Two episodes of diverticulitis, 12 years ago (hospitalized), and then 6 years ago. Colon exam with polyps ? 5 years ago. documented as of this encounter (statuses as of 01/23/2023) [facility] History of Past illness Narrative* Problem Noted Date Diagnosed Date Resolved Date Iron deficiency anemia due t o chronic blood loss 07/25/2015 12/13/2019 Non morbid obesity due to excess calories 07/25/2015 11/06/2020 Diverticulitis 04/11/2015 03/01/2019 Overview: Two episodes of diverticulitis, 12 years ago (hospitalized), and then 6 years ago. Colon exam with polyps ? 5 years ago. documented as of this encounter (statuses as of 01/23/2023) [facility] History of Past illness Narrative* Problem Noted Date Diagnosed Date Resolved Date Iron deficiency anemia due t o chronic blood loss 07/25/2015 12/13/2019 Non morbid obesity due to excess calories 07/25/2015 11/06/2020 Diverticulitis 04/11/2015 03/01/2019 Overview: Two episodes of diverticulitis, 12 years ago (hospitalized), and then 6 years ago. Colon exam with polyps ? 5 years ago. documented as of this encounter (statuses as of 02/03/2023) [facility] History of Past illness Narrative* Problem Noted Date Diagnosed Date Resolved Date Iron deficiency anemia due t o chronic blood loss 07/25/2015 12/13/2019 Non morbid obesity due to excess calories 07/25/2015 11/06/2020 Diverticulitis 04/11/2015 03/01/2019 Overview: Two episodes of diverticulitis, 12 years ago (hospitalized), and then 6 years ago. Colon exam with polyps ? 5 years ago. documented as of this encounter (statuses as of 02/04/2023) [facility] History of Past illness Narrative* Problem Noted Date Diagnosed Date Resolved Date Iron deficiency anemia due t o chronic blood loss 07/25/2015 12/13/2019 Non morbid obesity due to excess calories 07/25/2015 11/06/2020 Diverticulitis 04/11/2015 03/01/2019 Overview: Two episodes of diverticulitis, 12 years ago (hospitalized), and then 6 years ago. Colon exam with polyps ? 5 years ago. documented as of this encounter (statuses as of 02/09/2023) [facility] History of Past illness Narrative* Problem Noted Date Diagnosed Date Resolved Date Iron deficiency anemia due t o chronic blood loss 07/25/2015 12/13/2019 Non morbid obesity due to excess calories 07/25/2015 11/06/2020 Diverticulitis 04/11/2015 03/01/2019 Overview: Two episodes of diverticulitis, 12 years ago (hospitalized), and then 6 years ago. Colon exam with polyps ? 5 years ago. documented as of this encounter (statuses as of 02/11/2023) [facility] History of Past illness Narrative* Problem Noted Date Diagnosed Date Resolved Date Iron deficiency anemia due t o chronic blood loss 07/25/2015 12/13/2019 Non morbid obesity due to excess calories 07/25/2015 11/06/2020 Diverticulitis 04/11/2015 03/01/2019 Overview: Two episodes of diverticulitis, 12 years ago (hospitalized), and then 6 years ago. Colon exam with polyps ? 5 years ago. documented as of this encounter (statuses as of 02/11/2023) [facility] History of Past illness Narrative* Problem Noted Date Diagnosed Date Resolved Date Iron deficiency anemia due t o chronic blood loss 07/25/2015 12/13/2019 Non morbid obesity due to excess calories 07/25/2015 11/06/2020 Diverticulitis 04/11/2015 03/01/2019 Overview: Two episodes of diverticulitis, 12 years ago (hospitalized), and then 6 years ago. Colon exam with polyps ? 5 years ago. documented as of this encounter (statuses as of 02/13/2023) [facility] History of Past illness Narrative* Problem Noted Date Diagnosed Date Resolved Date Iron deficiency anemia due t o chronic blood loss 07/25/2015 12/13/2019 Non morbid obesity due to excess calories 07/25/2015 11/06/2020 Diverticulitis 04/11/2015 03/01/2019 Overview: Two episodes of diverticulitis, 12 years ago (hospitalized), and then 6 years ago. Colon exam with polyps ? 5 years ago. documented as of this encounter (statuses as of 02/14/2023) [facility] History of Past illness Narrative* Problem Noted Date Diagnosed Date Resolved Date Iron deficiency anemia due t o chronic blood loss 07/25/2015 12/13/2019 Non morbid obesity due to excess calories 07/25/2015 11/06/2020 Diverticulitis 04/11/2015 03/01/2019 Overview: Two episodes of diverticulitis, 12 years ago (hospitalized), and then 6 years ago. Colon exam with polyps ? 5 years ago. documented as of this encounter (statuses as of 02/21/2023) [facility] History of Past illness Narrative* Problem Noted Date Diagnosed Date Resolved Date Iron deficiency anemia due t o chronic blood loss 07/25/2015 12/13/2019 Non morbid obesity due to excess calories 07/25/2015 11/06/2020 Diverticulitis 04/11/2015 03/01/2019 Overview: Two episodes of diverticulitis, 12 years ago (hospitalized), and then 6 years ago. Colon exam with polyps ? 5 years ago. documented as of this encounter (statuses as of 02/27/2023) [facility] History of Past illness Narrative* Problem Noted Date Diagnosed Date Resolved Date Iron deficiency anemia due t o chronic blood loss 07/25/2015 12/13/2019 Non morbid obesity due to excess calories 07/25/2015 11/06/2020 Diverticulitis 04/11/2015 03/01/2019 Overview: Two episodes of diverticulitis, 12 years ago (hospitalized), and then 6 years ago. Colon exam with polyps ? 5 years ago. documented as of this encounter (statuses as of 03/07/2023) [address]09-2016 History of Past illness Narrative* Problem Noted Date Diagnosed Date Resolved Date Iron deficiency anemia due t o chronic blood loss 07/25/2015 12/13/2019 Non morbid obesity due to excess calories 07/25/2015 11/06/2020 Diverticulitis 04/11/2015 03/01/2019 Overview: Two episodes of diverticulitis, 12 years ago (hospitalized), and then 6 years ago. Colon exam with polyps ? 5 years ago. documented as of this encounter (statuses as of 03/10/2023) [facility]02-09-2016 History of Past illness Narrative* Problem Noted Date Diagnosed Date Resolved Date Iron deficiency anemia due t o chronic blood loss 07/25/2015 12/13/2019 Non morbid obesity due to excess calories 07/25/2015 11/06/2020 Diverticulitis 04/11/2015 03/01/2019 Overview: Two episodes of diverticulitis, 12 years ago (hospitalized), and then 6 years ago. Colon exam with polyps ? 5 years ago. documented as of this encounter (statuses as of 03/25/2023) [facility]2016 History of Past illness Narrative* Problem Noted Date Diagnosed Date Resolved Date Iron deficiency anemia due t o chronic blood loss 07/25/2015 12/13/2019 Non morbid obesity due to excess calories 07/25/2015 11/06/2020 Diverticulitis 04/11/2015 03/01/2019 Overview: Two episodes of diverticulitis, 12 years ago (hospitalized), and then 6 years ago. Colon exam with polyps ? 5 years ago. documented as of this encounter (statuses as of 03/27/2023) [facility]2016 History of Past illness Narrative* Problem Noted Date Diagnosed Date Resolved Date Iron deficiency anemia due t o chronic blood loss 07/25/2015 12/13/2019 Non morbid obesity due to excess calories 07/25/2015 11/06/2020 Diverticulitis 04/11/2015 03/01/2019 Overview: Two episodes of diverticulitis, 12 years ago (hospitalized), and then 6 years ago. Colon exam with polyps ? 5 years ago. documented as of this encounter (statuses as of 04/03/2023) [facility] History of Past illness Narrative* Problem Noted Date Diagnosed Date Resolved Date Iron deficiency anemia due t o chronic blood loss 07/25/2015 12/13/2019 Non morbid obesity due to excess calories 07/25/2015 11/06/2020 Diverticulitis 04/11/2015 03/01/2019 Overview: Two episodes of diverticulitis, 12 years ago (hospitalized), and then 6 years ago. Colon exam with polyps ? 5 years ago. documented as of this encounter (statuses as of 04/07/2023) [facility] History of Past illness Narrative* Problem Noted Date Diagnosed Date Resolved Date Iron deficiency anemia due t o chronic blood loss 07/25/2015 12/13/2019 Non morbid obesity due to excess calories 07/25/2015 11/06/2020 Diverticulitis 04/11/2015 03/01/2019 Overview: Two episodes of diverticulitis, 12 years ago (hospitalized), and then 6 years ago. Colon exam with polyps ? 5 years ago. documented as of this encounter (statuses as of 04/10/2023) [facility] History of Past illness Narrative* Problem Noted Date Diagnosed Date Resolved Date Iron deficiency anemia due t o chronic blood loss 07/25/2015 12/13/2019 Non morbid obesity due to excess calories 07/25/2015 11/06/2020 Diverticulitis 04/11/2015 03/01/2019 Overview: Two episodes of diverticulitis, 12 years ago (hospitalized), and then 6 years ago. Colon exam with polyps ? 5 years ago. documented as of this encounter (statuses as of 04/11/2023) [facility] History of Past illness Narrative* Problem Noted Date Diagnosed Date Resolved Date Iron deficiency anemia due t o chronic blood loss 07/25/2015 12/13/2019 Non morbid obesity due to excess calories 07/25/2015 11/06/2020 Diverticulitis 04/11/2015 03/01/2019 Overview: Two episodes of diverticulitis, 12 years ago (hospitalized), and then 6 years ago. Colon exam with polyps ? 5 years ago. documented as of this encounter (statuses as of 04/21/2023) [facility] History of Past illness Narrative* Problem Noted Date Diagnosed Date Resolved Date Iron deficiency anemia due t o chronic blood loss 07/25/2015 12/13/2019 Non morbid obesity due to excess calories 07/25/2015 11/06/2020 Diverticulitis 04/11/2015 03/01/2019 Overview: Two episodes of diverticulitis, 12 years ago (hospitalized), and then 6 years ago. Colon exam with polyps ? 5 years ago. documented as of this encounter (statuses as of 04/21/2023) [facility] History of Past illness Narrative* Problem Noted Date Diagnosed Date Resolved Date Iron deficiency anemia due t o chronic blood loss 07/25/2015 12/13/2019 Non morbid obesity due to excess calories 07/25/2015 11/06/2020 Diverticulitis 04/11/2015 03/01/2019 Overview: Two episodes of diverticulitis, 12 years ago (hospitalized), and then 6 years ago. Colon exam with polyps ? 5 years ago. documented as of this encounter (statuses as of 04/21/2023) [facility] History of Past illness Narrative* Problem Noted Date Diagnosed Date Resolved Date Iron deficiency anemia due t o chronic blood loss 07/25/2015 12/13/2019 Non morbid obesity due to excess calories 07/25/2015 11/06/2020 Diverticulitis 04/11/2015 03/01/2019 Overview: Two episodes of diverticulitis, 12 years ago (hospitalized), and then 6 years ago. Colon exam with polyps ? 5 years ago. documented as of this encounter (statuses as of 04/22/2023) [facility] History of Past illness Narrative* Problem Noted Date Diagnosed Date Resolved Date Iron deficiency anemia due t o chronic blood loss 07/25/2015 12/13/2019 Non morbid obesity due to excess calories 07/25/2015 11/06/2020 Diverticulitis 04/11/2015 03/01/2019 Overview: Two episodes of diverticulitis, 12 years ago (hospitalized), and then 6 years ago. Colon exam with polyps ? 5 years ago. documented as of this encounter (statuses as of 04/25/2023) [facility] History of Past illness Narrative* Problem Noted Date Diagnosed Date Resolved Date Iron deficiency anemia due t o chronic blood loss 07/25/2015 12/13/2019 Non morbid obesity due to excess calories 07/25/2015 11/06/2020 Diverticulitis 04/11/2015 03/01/2019 Overview: Two episodes of diverticulitis, 12 years ago (hospitalized), and then 6 years ago. Colon exam with polyps ? 5 years ago. documented as of this encounter (statuses as of 05/01/2023) [facility] History of Past illness Narrative* Problem Noted Date Diagnosed Date Resolved Date Iron deficiency anemia due t o chronic blood loss 07/25/2015 12/13/2019 Non morbid obesity due to excess calories 07/25/2015 11/06/2020 Diverticulitis 04/11/2015 03/01/2019 Overview: Two episodes of diverticulitis, 12 years ago (hospitalized), and then 6 years ago. Colon exam with polyps ? 5 years ago. documented as of this encounter (statuses as of 05/06/2023) [facility] History of Past illness Narrative* Problem Noted Date Diagnosed Date Resolved Date Iron deficiency anemia due t o chronic blood loss 07/25/2015 12/13/2019 Non morbid obesity due to excess calories 07/25/2015 11/06/2020 Diverticulitis 04/11/2015 03/01/2019 Overview: Two episodes of diverticulitis, 12 years ago (hospitalized), and then 6 years ago. Colon exam with polyps ? 5 years ago. documented as of this encounter (statuses as of 05/13/2023) [facility] History of Past illness Narrative* Problem Noted Date Diagnosed Date Resolved Date Iron deficiency anemia due t o chronic blood loss 07/25/2015 12/13/2019 Non morbid obesity due to excess calories 07/25/2015 11/06/2020 Diverticulitis 04/11/2015 03/01/2019 Overview: Two episodes of diverticulitis, 12 years ago (hospitalized), and then 6 years ago. Colon exam with polyps ? 5 years ago. documented as of this encounter (statuses as of 05/16/2023) [facility] History of Past illness Narrative* Problem Noted Date Diagnosed Date Resolved Date Iron deficiency anemia due t o chronic blood loss 07/25/2015 12/13/2019 Non morbid obesity due to excess calories 07/25/2015 11/06/2020 Diverticulitis 04/11/2015 03/01/2019 Overview: Two episodes of diverticulitis, 12 years ago (hospitalized), and then 6 years ago. Colon exam with polyps ? 5 years ago. documented as of this encounter (statuses as of 05/30/2023) [facility] History of Past illness Narrative* Problem Noted Date Diagnosed Date Resolved Date Iron deficiency anemia due t o chronic blood loss 07/25/2015 12/13/2019 Non morbid obesity due to excess calories 07/25/2015 11/06/2020 Diverticulitis 04/11/2015 03/01/2019 Overview: Two episodes of diverticulitis, 12 years ago (hospitalized), and then 6 years ago. Colon exam with polyps ? 5 years ago. documented as of this encounter (statuses as of 07/31/2023) [facility] History of Past illness Narrative* Problem Noted Date Diagnosed Date Resolved Date Iron deficiency anemia due t o chronic blood loss 07/25/2015 12/13/2019 Non morbid obesity due to excess calories 07/25/2015 11/06/2020 Diverticulitis 04/11/2015 03/01/2019 Overview: Two episodes of diverticulitis, 12 years ago (hospitalized), and then 6 years ago. Colon exam with polyps ? 5 years ago. documented as of this encounter (statuses as of 08/15/2023) [facility] History of Past illness Narrative* Problem Noted Date Diagnosed Date Resolved Date Iron deficiency anemia due t o chronic blood loss 07/25/2015 12/13/2019 Non morbid obesity due to excess calories 07/25/2015 11/06/2020 Diverticulitis 04/11/2015 03/01/2019 Overview: Two episodes of diverticulitis, 12 years ago (hospitalized), and then 6 years ago. Colon exam with polyps ? 5 years ago. documented as of this encounter (statuses as of 08/25/2023) [facility] Diagnosis Dysuria- Primary Lower abdominal pain Abdominal pain, other specified site Fever, unspecified fever cause [facility] Diagnosis Encounter for screening mammogram for breast cancer [facility] Diagnosis Acute cough- Primary Rib pain on left side Chest pain, unspecified Murmur, cardiac Undiagnosed cardiac murmurs [facility] Diagnosis Polycythemia- Primary Polycythemia vera [facility] Diagnosis Sore throat- Primary Acute pharyngitis [facility] Diagnosis Essential hypertension- Primary Unspecified essential hypertension Special screening for malignant neoplasms, colon [facility] Diagnosis Essential hypertension Unspecified essential hypertension [facility] Diagnosis Type 2 diabetes mellitus without complication, without long-term current use of insulin (HCC) Anxiety neurosis Anxiety state, unspecified Depressive disorder Depressive disorder, not elsewhere classified [facility] Diagnosis Essential hypertension- Primary Unspecified essential hypertension [facility] Diagnosis Eye problem- Primary Other eye problems Hypertension, essential Unspecified essential hypertension [facility] Diagnosis Type 2 diabetes mellitus without complication, without long-term current use of insulin (HCC) Anxiety neurosis Anxiety state, unspecified Depressive disorder Depressive disorder, not elsewhere classified [facility] Diagnosis Post-menopausal bleeding- Primary Postmenopausal bleeding [facility] Diagnosis Encounter for screening mammogram for breast cancer [facility] Diagnosis Post-menopausal bleeding- Primary Postmenopausal bleeding [facility] Diagnosis Open wound of right lower leg, initial encounter- Primary Post-menopausal bleeding Postmenopausal bleeding [facility] Diagnosis Abnormal uterine bleeding (AUB)- Primary [facility] Diagnosis Polycythemia- Primary Polycythemia vera Essential hypertension Unspecified essential hypertension Type 2 diabetes mellitus without complication, without long-term current use of insulin (HCC) Anxiety neurosis Anxiety state, unspecified Depressive disorder Depressive disorder, not elsewhere classified [facility] Diagnosis Polycythemia- Primary Polycythemia vera [facility] Diagnosis Chronic cough- Primary Cough Polycythemia Polycythemia vera [facility] Diagnosis Polycythemia- Primary Polycythemia vera [facility] Diagnosis Polycythemia- Primary Polycythemia vera [facility] Diagnosis Polycythemia- Primary Polycythemia vera [facility] Diagnosis Polycythemia- Primary Polycythemia vera [facility] Diagnosis Polycythemia- Primary Polycythemia vera [facility] Diagnosis Hypoxemia- Primary Pulmonary hypertension (HCC) Other chronic pulmonary heart diseases [place] Other dyspnea and respiratory abnormality Obstructive lung disease (HCC) Chronic airway obstruction, not elsewhere classified Morbid obesity (HCC) Morbid obesity Former smoker Personal history of tobacco use, presenting hazards to health [facility] Diagnosis Polycythemia- Primary Polycythemia vera [facility] Diagnosis Polycythemia- Primary Polycythemia vera [facility] Diagnosis Primary hypertension- Primary Unspecified essential hypertension SOB (shortness of breath) Shortness of breath Hypoxia Hypoxemia Polycythemia Polycythemia vera Type 2 diabetes mellitus without complication, without long-term current use of insulin (HCC) [facility] Diagnosis Polycythemia- Primary Polycythemia vera [facility] Diagnosis Obstructive lung disease (HCC) Chronic airway obstruction, not elsewhere classified documented in this encounter [facility] note* Diagnosis Polycythemia Polycythemia vera Chronic cough Cough [facility]* Diagnosis Postmenopausal bleeding documented in this encounter [facility] note* Diagnosis Polycythemia- Primary Polycythemia vera documented in this encounter [facility] note* Diagnosis Polycythemia- Primary Polycythemia vera documented in this encounter [facility] note* Diagnosis Polycythemia- Primary Polycythemia vera documented in this encounter [facility] note* Diagnosis Polycythemia- Primary Polycythemia vera documented in this encounter [facility] note* Diagnosis Polycythemia- Primary Polycythemia vera documented in this encounter [facility] note* Diagnosis Fever, unspecified fever cause- Primary Influenza A Influenza with other respiratory manifestations documented in this encounter [facility] note* Diagnosis Type 2 diabetes mellitus without complication, without long-term current use of insulin (HCC) documented in this encounter [facility] for referral (narrative)* Diagnostic Procedure Only (Routine) - Pending Review Specialty Diagnoses / Procedures Referred By Stevenson minaya Referred To Contact [facility] Diagnoses Encounter for screening mammogram for breast cancer Procedures MILADYS SCREENING SCREENING MAMMOGRAPHY BI 2-VIEW BREAST INC CAD Jose Blanton MD [address] [place] [address] [facility] [address] [place] [phone] Referral ID Status Reason Start Date Expiration Date Visits Requested Visits Authorized [id number] Pending Review Auto-Generat ed Referral 12/12/2021 01/11/2023 1 1 [facility] for referral (narrative)* Outpatient Procedure (Routine) - Pending Review Specialty Diagnoses / Procedures Referred By Stevenson minaya Referred To Contact [facility] Diagnoses Special screening for malignant neoplasms, colon Procedures COLONOSCOPY SCREENING COLONOSCOPY FLX DX W/COLLJ SPEC WHEN PFRMD Older, Claudette, STEREOPLOTTER OPERATOR.LEAVE SPECIALIST [address] [place] [address] [facility] [address] [place] [address] Referral ID Status Reason Start Date Expiration Date Visits Requested Visits Authorized [id number] Pending Review Auto-Generat ed Referral 04/30/2023 1 1 [facility] for referral (narrative)* Outpatient Procedure (Routine) - Pending Review Specialty Diagnoses / Procedures Referred By Contac t Referred To Contact [facility] Diagnoses Post-menopausal bleeding Procedures ENDOMETRIAL BIOPSY ENDOMETRIAL BX W/WO ENDOCERVIX BX W/O DILAT SPX Suzanne Roblero APRN.CNM [address] [place] [address] [address] Referral ID Status Reason Start Date Expiration Date Visits Requested Visits Authorized [id number] Pending Review Auto-Generat ed Referral 11/29/2022 11/29/2023 1 1 [facility] for referral (narrative)* Diagnostic Procedure Only (Routine) - Pending Review Specialty Diagnoses / Procedures Referred By Contac t Referred To Contact [facility] Diagnoses Encounter for screening mammogram for breast cancer Procedures MILADYS SCREENING SCREENING MAMMOGRAPHY BI 2-VIEW BREAST INC CAD Jose Blanton MD [address] [place] [address] [facility] [address] [place] [phone] Referral ID Status Reason Start Date Expiration Date Visits Requested Visits Authorized [id number] Pending Review Auto-Generat ed Referral 12/18/2022 01/17/2024 1 1 [facility] for referral (narrative)* Outpatient Procedure (Routine) - Pending Review Specialty Diagnoses / Procedures Referred By Contac t Referred To Contact [facility] Diagnoses Abnormal uterine bleeding (AUB) Procedures INSERT INTRAUTERINE DEVICE LEVONORGESTREL IU 52MG 5 YR INSERT INTRAUTERINE DEVICE Samreen Marques MD [address] [place] [address] [address] Referral ID Status Reason Start Date Expiration Date Visits Requested Visits Authorized [id number] Pending Review Auto-Generat ed Referral 01/22/2023 01/22/2024 1 1 [facility] for referral (narrative)* Outpatient Procedure (Routine) - Pending Review Specialty Diagnoses / Procedures Referred By Contac t Referred To Contact [facility] Diagnoses Hypoxemia Pulmonary hypertension (HCC) Procedures ECHO ECHO TTHRC R-T 2D W/WOM-MODE COMPL SPEC&COLR D Lucretia Calix MD [address] [place] [address] [address] Referral ID Status Reason Start Date Expiration Date Visits Requested Visits Authorized [id number] Pending Review Auto-Generat ed Referral 03/10/2023 03/09/2024 1 1 * Outpatient Procedure (Routine) - Pending Review Specialty Diagnoses / Procedures Referred By Contac t Referred To [facility] [place] Diagnoses Obstructive lung disease (HCC) Procedures LUNG VOLUMES Lucretia Calix MD [address] [place] [address] [facility] [address] [place] [id number] Referral ID Status Reason Start Date Expiration Date Visits Requested Visits Authorized [id number] Pending Review Auto-Generat ed Referral 03/10/2023 04/08/2024 1 1 * Outpatient Procedure (Routine) - Pending Review Specialty Diagnoses / Procedures Referred By Contac t Referred To [facility] [place] Diagnoses Obstructive lung disease (HCC) Procedures LUNG DIFFUSION CAPACITY (DLCO) DIFFUSING CAPACITY Lucretia Calix MD [address] [place] [address] [id number] [place] [address] Referral ID Status Reason Start Date Expiration Date Visits Requested Visits Authorized [id number] Pending Review Auto-Generat ed Referral 03/10/2023 04/08/2024 1 1 * Outpatient Procedure (Routine) - Pending Review Specialty Diagnoses / Procedures Referred By Contac t Referred To Contact [facility] Diagnoses Obstructive lung disease (HCC) Procedures SPIROMETRY WITH DILATOR IF OBSTRUCTED BRNCDILAT RSPSE SPMTRY PRE&POST-BRNCDILAT ADMN Lucretia Calix MD [address] [place] [address] [address] Referral ID Status Reason Start Date Expiration Date Visits Requested Visits Authorized [id number] Pending Review Auto-Generat ed Referral 03/10/2023 04/08/2024 1 1 [facility] Diagnostic Procedure Only (Routine) - Pending Review Specialty Diagnoses / Procedures Referred By Contac t Referred To Contact [facility] Diagnoses Postmenopausal bleeding Procedures US FEMALE PELVIS TRANSVAG US TRANSVAGINAL Suzanne Roblero APRN.CNM [address] [place] [address] [id number] Referral ID Status Reason Start Date Expiration Date Visits Requested Visits Authorized [id number] Pending Review Auto-Generat ed Referral 11/18/2022 12/18/2023 1 1 [facility] Advance Directives Documents on File Type Date Recorded Patient Cost Accounting Clerk Expl anation Advance Directive(s) 06/12/2018 6:11 AM Documents on File Type Date Recorded Patient Cost Accounting Clerk Expl anation Advance Directive(s) 06/12/2018 6:11 AM Reason for Referral Specialty Diagnoses / Procedures Referred By Contac t Referred To Contact Hematology Diagnoses Polycythemia Procedures CONSULT TO HEMATOLOGY OFFICE/OUTPATIENT NEW HIGH MDM 60-74 MINUTES Older, ROD Wilkins.LEAVE SPECIALIST [address] [place] [address] Referral ID Status Reason Start Date Expiration Date Visits Requested Visits Authorized [id number] Pending Review PCP Requested Referral 02/04/2023 02/04/2024 1 1 Specialty Diagnoses / Procedures Referred By Contac t Referred To Contact CT [facility] Diagnoses Polycythemia Chronic cough Procedures CT CHEST W IVCON DIAGNOSTIC COMPUTED TOMOGRAPHY THORAX W/[place] [address] [place] [address] [facility] [place] [address] Referral ID Status Reason Start Date Expiration Date Visits Requested Visits Authorized [id number] Pending Review Auto-Generat ed Referral 02/10/2023 03/11/2024 1 1 Specialty Diagnoses / Procedures Referred By Contac t Referred To Contact CT [facility] Diagnoses Polycythemia Procedures CT ABD/PEL W IVCON CT ABD & P[place]VIS W/[place] [address] [place], [place] [address] [address] [place] [address] Referral ID Status Reason Start Date Expiration Date Visits Requested Visits Authorized [id number] Pending Review Auto-Generat ed Referral 02/10/2023 03/11/2024 1 1 Summary Purpose Family History No Family History Records FoundNo Family History Records Found Additional Source Comments Source Comments (unrecognize d section and content) In the event this informatio n is protected by the Federal Confidentiality of Alcohol and Drug Abuse Patient Records regulations: The Federal rules restrict any use of the information to criminally investigate or prosecute any alcohol or drug abuse patient.[facility] HospitalIn the event this information is protected by the Federal Confidentiality of Alcohol and Drug Abuse Patient Records regulations: The Federal rules restrict any use of the information to criminally investigate or prosecute any alcohol or drug abuse patient.[facility] HospitalIn the event this information is protected by the Federal Confidentiality of Alcohol and Drug Abuse Patient Records regulations: The Federal rules restrict any use of the information to criminally investigate or prosecute any alcohol or drug abuse patient.[facility] HospitalIn the event this information is protected by the Federal Confidentiality of Alcohol and Drug Abuse Patient Records regulations: The Federal rules restrict any use of the information to criminally investigate or prosecute any alcohol or drug abuse patient.[facility] HospitalIn the event this information is protected by the Federal Confidentiality of Alcohol and Drug Abuse Patient Records regulations: The Federal rules restrict any use of the information to criminally investigate or prosecute any alcohol or drug abuse patient.[facility] HospitalIn the event this information is protected by the Federal Confidentiality of Alcohol and Drug Abuse Patient Records regulations: The Federal rules restrict any use of the information to criminally investigate or prosecute any alcohol or drug abuse patient.[facility] HospitalIn the event this information is protected by the Federal Confidentiality of Alcohol and Drug Abuse Patient Records regulations: The Federal rules restrict any use of the information to criminally investigate or prosecute any alcohol or drug abuse patient.[facility] HospitalIn the event this information is protected by the Federal Confidentiality of Alcohol and Drug Abuse Patient Records regulations: The Federal rules restrict any use of the information to criminally investigate or prosecute any alcohol or drug abuse patient.[facility] HospitalIn the event this information is protected by the Federal Confidentiality of Alcohol and Drug Abuse Patient Records regulations: The Federal rules restrict any use of the information to criminally investigate or prosecute any alcohol or drug abuse patient.[facility] HospitalIn the event this information is protected by the Federal Confidentiality of Alcohol and Drug Abuse Patient Records regulations: The Federal rules restrict any use of the information to criminally investigate or prosecute any alcohol or drug abuse patient.[facility] HospitalIn the event this information is protected by the Federal Confidentiality of Alcohol and Drug Abuse Patient Records regulations: The Federal rules restrict any use of the information to criminally investigate or prosecute any alcohol or drug abuse patient.[facility] HospitalIn the event this information is protected by the Federal Confidentiality of Alcohol and Drug Abuse Patient Records regulations: The Federal rules restrict any use of the information to criminally investigate or prosecute any alcohol or drug abuse patient.[facility] HospitalIn the event this information is protected by the Federal Confidentiality of Alcohol and Drug Abuse Patient Records regulations: The Federal rules restrict any use of the information to criminally investigate or prosecute any alcohol or drug abuse patient.[facility] HospitalIn the event this information is protected by the Federal Confidentiality of Alcohol and Drug Abuse Patient Records regulations: The Federal rules restrict any use of the information to criminally investigate or prosecute any alcohol or drug abuse patient.[facility] HospitalIn the event this information is protected by the Federal Confidentiality of Alcohol and Drug Abuse Patient Records regulations: The Federal rules restrict any use of the information to criminally investigate or prosecute any alcohol or drug abuse patient.[facility] HospitalIn the event this information is protected by the Federal Confidentiality of Alcohol and Drug Abuse Patient Records regulations: The Federal rules restrict any use of the information to criminally investigate or prosecute any alcohol or drug abuse patient.[facility] HospitalIn the event this information is protected by the Federal Confidentiality of Alcohol and Drug Abuse Patient Records regulations: The Federal rules restrict any use of the information to criminally investigate or prosecute any alcohol or drug abuse patient.[facility] HospitalIn the event this information is protected by the Federal Confidentiality of Alcohol and Drug Abuse Patient Records regulations: The Federal rules restrict any use of the information to criminally investigate or prosecute any alcohol or drug abuse patient.[facility] HospitalIn the event this information is protected by the Federal Confidentiality of Alcohol and Drug Abuse Patient Records regulations: The Federal rules restrict any use of the information to criminally investigate or prosecute any alcohol or drug abuse patient.[facility] HospitalIn the event this information is protected by the Federal Confidentiality of Alcohol and Drug Abuse Patient Records regulations: The Federal rules restrict any use of the information to criminally investigate or prosecute any alcohol or drug abuse patient.[facility] HospitalIn the event this information is protected by the Federal Confidentiality of Alcohol and Drug Abuse Patient Records regulations: The Federal rules restrict any use of the information to criminally investigate or prosecute any alcohol or drug abuse patient.[facility] HospitalIn the event this information is protected by the Federal Confidentiality of Alcohol and Drug Abuse Patient Records regulations: The Federal rules restrict any use of the information to criminally investigate or prosecute any alcohol or drug abuse patient.[facility] HospitalIn the event this information is protected by the Federal Confidentiality of Alcohol and Drug Abuse Patient Records regulations: The Federal rules restrict any use of the information to criminally investigate or prosecute any alcohol or drug abuse patient.[facility] HospitalIn the event this information is protected by the Federal Confidentiality of Alcohol and Drug Abuse Patient Records regulations: The Federal rules restrict any use of the information to criminally investigate or prosecute any alcohol or drug abuse patient.[facility] HospitalIn the event this information is protected by the Federal Confidentiality of Alcohol and Drug Abuse Patient Records regulations: The Federal rules restrict any use of the information to criminally investigate or prosecute any alcohol or drug abuse patient.[facility] HospitalIn the event this information is protected by the Federal Confidentiality of Alcohol and Drug Abuse Patient Records regulations: The Federal rules restrict any use of the information to criminally investigate or prosecute any alcohol or drug abuse patient.[facility] HospitalIn the event this information is protected by the Federal Confidentiality of Alcohol and Drug Abuse Patient Records regulations: The Federal rules restrict any use of the information to criminally investigate or prosecute any alcohol or drug abuse patient.[facility] HospitalIn the event this information is protected by the Federal Confidentiality of Alcohol and Drug Abuse Patient Records regulations: The Federal rules restrict any use of the information to criminally investigate or prosecute any alcohol or drug abuse patient.[facility] HospitalIn the event this information is protected by the Federal Confidentiality of Alcohol and Drug Abuse Patient Records regulations: The Federal rules restrict any use of the information to criminally investigate or prosecute any alcohol or drug abuse patient.[facility] HospitalIn the event this information is protected by the Federal Confidentiality of Alcohol and Drug Abuse Patient Records regulations: The Federal rules restrict any use of the information to criminally investigate or prosecute any alcohol or drug abuse patient.[facility] HospitalIn the event this information is protected by the Federal Confidentiality of Alcohol and Drug Abuse Patient Records regulations: The Federal rules restrict any use of the information to criminally investigate or prosecute any alcohol or drug abuse patient.[facility] HospitalIn the event this information is protected by the Federal Confidentiality of Alcohol and Drug Abuse Patient Records regulations: The Federal rules restrict any use of the information to criminally investigate or prosecute any alcohol or drug abuse patient.[facility] HospitalIn the event this information is protected by the Federal Confidentiality of Alcohol and Drug Abuse Patient Records regulations: The Federal rules restrict any use of the information to criminally investigate or prosecute any alcohol or drug abuse patient.[facility] HospitalIn the event this information is protected by the Federal Confidentiality of Alcohol and Drug Abuse Patient Records regulations: The Federal rules restrict any use of the information to criminally investigate or prosecute any alcohol or drug abuse patient.[facility] HospitalIn the event this information is protected by the Federal Confidentiality of Alcohol and Drug Abuse Patient Records regulations: The Federal rules restrict any use of the information to criminally investigate or prosecute any alcohol or drug abuse patient.[facility] HospitalIn the event this information is protected by the Federal Confidentiality of Alcohol and Drug Abuse Patient Records regulations: The Federal rules restrict any use of the information to criminally investigate or prosecute any alcohol or drug abuse patient.[facility] HospitalIn the event this information is protected by the Federal Confidentiality of Alcohol and Drug Abuse Patient Records regulations: The Federal rules restrict any use of the information to criminally investigate or prosecute any alcohol or drug abuse patient.[facility] HospitalIn the event this information is protected by the Federal Confidentiality of Alcohol and Drug Abuse Patient Records regulations: The Federal rules restrict any use of the information to criminally investigate or prosecute any alcohol or drug abuse patient.[facility] HospitalIn the event this information is protected by the Federal Confidentiality of Alcohol and Drug Abuse Patient Records regulations: The Federal rules restrict any use of the information to criminally investigate or prosecute any alcohol or drug abuse patient.[facility] HospitalIn the event this information is protected by the Federal Confidentiality of Alcohol and Drug Abuse Patient Records regulations: The Federal rules restrict any use of the information to criminally investigate or prosecute any alcohol or drug abuse patient.[facility] the event this information is protected by the Federal Confidentiality of Alcohol and Drug Abuse Patient Records regulations: The Federal rules restrict any use of the information to criminally investigate or prosecute any alcohol or drug abuse patient.[facility] HospitalIn the event this information is protected by the Federal Confidentiality of Alcohol and Drug Abuse Patient Records regulations: The Federal rules restrict any use of the information to criminally investigate or prosecute any alcohol or drug abuse patient.[facility] HospitalIn the event this information is protected by the Federal Confidentiality of Alcohol and Drug Abuse Patient Records regulations: The Federal rules restrict any use of the information to criminally investigate or prosecute any alcohol or drug abuse patient.[facility] HospitalIn the event this information is protected by the Federal Confidentiality of Alcohol and Drug Abuse Patient Records regulations: The Federal rules restrict any use of the information to criminally investigate or prosecute any alcohol or drug abuse patient.[facility] HospitalIn the event this information is protected by the Federal Confidentiality of Alcohol and Drug Abuse Patient Records regulations: The Federal rules restrict any use of the information to criminally investigate or prosecute any alcohol or drug abuse patient.[facility] HospitalIn the event this information is protected by the Federal Confidentiality of Alcohol and Drug Abuse Patient Records regulations: The Federal rules restrict any use of the information to criminally investigate or prosecute any alcohol or drug abuse patient.[facility] HospitalIn the event this information is protected by the Federal Confidentiality of Alcohol and Drug Abuse Patient Records regulations: The Federal rules restrict any use of the information to criminally investigate or prosecute any alcohol or drug abuse patient.[facility] HospitalIn the event this information is protected by the Federal Confidentiality of Alcohol and Drug Abuse Patient Records regulations: The Federal rules restrict any use of the information to criminally investigate or prosecute any alcohol or drug abuse patient.[facility] HospitalIn the event this information is protected by the Federal Confidentiality of Alcohol and Drug Abuse Patient Records regulations: The Federal rules restrict any use of the information to criminally investigate or prosecute any alcohol or drug abuse patient.[facility] HospitalIn the event this information is protected by the Federal Confidentiality of Alcohol and Drug Abuse Patient Records regulations: The Federal rules restrict any use of the information to criminally investigate or prosecute any alcohol or drug abuse patient.[facility] HospitalIn the event this information is protected by the Federal Confidentiality of Alcohol and Drug Abuse Patient Records regulations: The Federal rules restrict any use of the information to criminally investigate or prosecute any alcohol or drug abuse patient.[facility] HospitalIn the event this information is protected by the Federal Confidentiality of Alcohol and Drug Abuse Patient Records regulations: The Federal rules restrict any use of the information to criminally investigate or prosecute any alcohol or drug abuse patient.[facility] HospitalIn the event this information is protected by the Federal Confidentiality of Alcohol and Drug Abuse Patient Records regulations: The Federal rules restrict any use of the information to criminally investigate or prosecute any alcohol or drug abuse patient.[facility] Care Teams (unrecognized sec tion and content) Helicopter Officer Relationship Specialty Start Date End Date Jose Blanton MD [address] [place] [address] PCP - General Internal Medicine 07/25/15 Helicopter Officer Relationship Specialty Start Date End Date Jose Blanton MD [address] [place] [address] PCP - General Internal Medicine 07/25/15 Helicopter Officer Relationship Specialty Start Date End Date Jose Blanton MD [address] [place] [address] PCP - General Internal Medicine 07/25/15 Helicopter Officer Relationship Specialty Start Date End Date Jose Blanton MD [address] [place] [address] PCP - General Internal Medicine 07/25/15 Helicopter Officer Relationship Specialty Start Date End Date Jose Blanton MD [address] [facility] [place] [address] PCP - General Internal Medicine 07/25/15 Helicopter Officer Relationship Specialty Start Date End Date Jose Blanton MD [address] [facility] [place] [address] PCP - General Internal Medicine 07/25/15 Helicopter Officer Relationship Specialty Start Date End Date Jose Blanton MD [address] [place] [address] PCP - General Internal Medicine 07/25/15 Helicopter Officer Relationship Specialty Start Date End Date Jose Blanton MD [address] [place] [address] PCP - General Internal Medicine 07/25/15 Helicopter Officer Relationship Specialty Start Date End Date Jose Blanton MD [address] [place] [address] PCP - General Internal Medicine 07/25/15 Helicopter Officer Relationship Specialty Start Date End Date Jose Blanton MD [address] [place] [address] PCP - General Internal Medicine 07/25/15 Helicopter Officer Relationship Specialty Start Date End Date Jose Blanton MD [address] [place] [address] PCP - General Internal Medicine 07/25/15 Helicopter Officer Relationship Specialty Start Date End Date Jose Blanton MD [address] [place] [address] PCP - General Internal Medicine 07/25/15 Helicopter Officer Relationship Specialty Start Date End Date Jose Blanton MD [address] [facility] [place] [address] PCP - General Internal Medicine 07/25/15 Helicopter Officer Relationship Specialty Start Date End Date Jose Blanton MD [address] [facility] [place] [address] PCP - General Internal Medicine 07/25/15 Helicopter Officer Relationship Specialty Start Date End Date Jose Blanton MD [address] [facility] [place] [address] PCP - General Internal Medicine 07/25/15 Helicopter Officer Relationship Specialty Start Date End Date Jose Blanton MD [address] [facility] [place] [address] PCP - General Internal Medicine 07/25/15 Helicopter Officer Relationship Specialty Start Date End Date Jose Blanton MD [address] [facility] [place] [address] PCP - General Internal Medicine 07/25/15 Helicopter Officer Relationship Specialty Start Date End Date Jose Blanton MD [address] [facility] [place] [address] PCP - General Internal Medicine 07/25/15 Helicopter Officer Relationship Specialty Start Date End Date Jose Blanton MD [address] [facility] [place] [address] PCP - General Internal Medicine 07/25/15 Helicopter Officer Relationship Specialty Start Date End Date Jose Blanton MD [address] [facility] [place] [place] [address] PCP - General Internal Medicine 07/25/15 [place] [address] [place] [address] Hematology/Oncology 02/10/23 Helicopter Officer Relationship Specialty Start Date End Date Jose Blanton MD [address] [place] [address] PCP - General Internal Medicine 07/25/15 [place] [address] [place] [address] Hematology/Oncology 02/10/23 Helicopter Officer Relationship Specialty Start Date End Date Jose Blanton MD [address] [place] [address] PCP - General Internal Medicine 07/25/15 [place] [address] [place] [address] Hematology/Oncology 02/10/23 Helicopter Officer Relationship Specialty Start Date End Date Jose Blanton MD [address] [place] [address] PCP - General Internal Medicine 07/25/15 [place] [address] [place] [address] Hematology/Oncology 02/10/23 Helicopter Officer Relationship Specialty Start Date End Date Jose Blanton MD [address] [place] [address] PCP - General Internal Medicine 07/25/15 [place] [address] [place] [address] Hematology/Oncology 02/10/23 Helicopter Officer Relationship Specialty Start Date End Date Jose Blanton MD [address] [place], [place] [address] PCP - General Internal Medicine 07/25/15 [place] [address] [place] [address] Hematology/Oncology 02/10/23 Helicopter Officer Relationship Specialty Start Date End Date Jose Blanton MD [address] [place] [address] PCP - General Internal Medicine 07/25/15 [place] [address] [place] [address] Hematology/Oncology 02/10/23 Helicopter Officer Relationship Specialty Start Date End Date Jose Blanton MD [address] [place] [address] PCP - General Internal Medicine 07/25/15 [place] [address] [place] [address] Hematology/Oncology 02/10/23 Helicopter Officer Relationship Specialty Start Date End Date Jose Blanton MD [address] [place], [place] [address] PCP - General Internal Medicine 07/25/15 [place] [address] [place] [address] Hematology/Oncology 02/10/23 Helicopter Officer Relationship Specialty Start Date End Date Jose Blanton MD [address] [place], [place] [address] PCP - General Internal Medicine 07/25/15 [place] [address] [place] [address] Hematology/Oncology 02/10/23 Helicopter Officer Relationship Specialty Start Date End Date Jose Blanton MD [address] [place], [place] [address] PCP - General Internal Medicine 07/25/15 [place] [address] [place] [address] Hematology/Oncology 02/10/23 Helicopter Officer Relationship Specialty Start Date End Date Jose Blanton MD [address] [place] [address] PCP - General Internal Medicine 07/25/15 [place] [address] [place] [address] Hematology/Oncology 02/10/23 Helicopter Officer Relationship Specialty Start Date End Date Jose Blanton MD [address] [place], [place] [phone] PCP - General Internal Medicine 07/25/15 [place] [address] [facility] [place] [address] Hematology/Oncology 02/10/23 Helicopter Officer Relationship Specialty Start Date End Date Jose Blanton MD [address] [place] [address] PCP - General Internal Medicine 07/25/15 Helicopter Officer Relationship Specialty Start Date End Date Jose Blanton MD [address] [place] [address] PCP - General Internal Medicine 07/25/15 [place] [address] [facility] [place] [address] Hematology/Oncology 02/10/23 Helicopter Officer Relationship Specialty Start Date End Date Jose Blanton MD [address] [place] [address] PCP - General Internal Medicine 07/25/15 [place] [address] [facility] [place] [address] Hematology/Oncology 02/10/23 Helicopter Officer Relationship Specialty Start Date End Date Jose Blanton MD [address] [place], [place] [address] PCP - General Internal Medicine 07/25/15 [place] [address] [place] [address] Hematology/Oncology 02/10/23 Helicopter Officer Relationship Specialty Start Date End Date Jose Blanton MD [address] [place] [address] PCP - General Internal Medicine 07/25/15 [place] [address] [place] [address] Hematology/Oncology 02/10/23 Helicopter Officer Relationship Specialty Start Date End Date Jose Blanton MD [address] [place] [address] PCP - General Internal Medicine 07/25/15 [place] [address] [place] [address] Hematology/Oncology 02/10/23 Helicopter Officer Relationship Specialty Start Date End Date Jose Blanton MD [address] [place] [address] PCP - General Internal Medicine 07/25/15 [place] [address] [place] [address] Hematology/Oncology 02/10/23 Reason for Visit (unrecogniz ed section and content) Specialty Diagnoses / Procedures Referred By Contac t Referred To Contact HEMATOLOGY/ONCOLOGY Diagnoses lab/tx Procedures lab /tx Self [facility] [address] [place] [address] Referral ID Status Reason Start Date Expiration Date Visits Requested Visits Authorized [id number] Authorized Patient Cleared - Qualified 100% FAS 3 08/25/2023 99 99 Reason Comments Established Patient Specialty Diagnoses / Procedures Referred By Contac t Referred To Contact Laboratory Medicine / LAB [facility] MOB Diagnoses CBC* Procedures LAB Raimundo Lee MD [address] [place] [address] Lab [facility] Mob [address] [place] [address] Referral ID Status Reason Start Date Expiration Date Visits Requested Visits Authorized [id number] Authorized Patient Cleared - Qualified 100% FAS 02/10/2023 05/12/2023 99 99 Specialty Diagnoses / Procedures Referred By Contac t Referred To Contact Radiology / RADIO CT SCAN [facility] Diagnoses Polycythemia [D75.1] Procedures [place] [address] [place] [address] [facility] [address] [place] [address] Referral ID Status Reason Start Date Expiration Date Visits Requested Visits Authorized [id number] Authorized Patient Cleared - Qualified 100% FAS 02/24/2023 05/25/2023 99 99 Reason Comments F/U 3 Month Specialty Diagnoses / Procedures Referred By Contac t Referred To Contact Internal Medicine / INTERNAL MEDICINE Diagnoses 3 month follow up Procedures 4C EST Jose Blanton MD [address] [place] [address] Claudette Snyder APRN.LEAVE SPECIALIST [address] [place] [address] Referral ID Status Reason Start Date Expiration Date Visits Requested Visits Authorized [id number] Authorized Patient Cleared - Qualified 100% FAS 02/03/2023 05/04/2023 99 99 Reason Comments UTI fever, frequency and burning with urination x 1 day Specialty Diagnoses / Procedures Referred By Contac t Referred To Contact [facility] Diagnoses fever, burning and frequency Procedures URGENT CARE [facility] [address] [place] [address] Referral ID Status Reason Start Date Expiration Date Visits Requested Visits Authorized [id number] Authorized Patient Cleared - Qualified 100% FAS 10/29/2021 01/27/2022 99 99 Reason Comments Chest Congestion cough, sob and left rib pain x 4 days Reason Comments Results Reason Comments Sore Throat St, MOHR and ears hurt x 4 days Reason Comments follow up - blood pressure Reason Comments Refill Request Reason Comments Refill Request Please send today if possible, patient is out of the metformin Specialty Diagnoses / Procedures Referred By Contac t Referred To Contact Diagnoses Consultation without specific complaint Procedures OFFICE CONSULTATION NEW/ESTAB PATIENT 15 MIN Jose Blanton MD [address] [place] [address] [facility] Dept Referral ID Status Reason Start Date Expiration Date Visits Requested Visits Authorized [id number] Authorized Patient Cleared - Qualified 100% FAS 07/23/2022 10/21/2022 99 99 Reason Comments Eye Problem Red eyes x 2 days Reason Onset Date Comments Refill Request 10/18/2022 Reason Comments Endometrial Biopsy Specialty Diagnoses / Procedures Referred By Contac t Referred To Contact [facility] Diagnoses Postmenopausal bleeding Procedures ENDOMETRIAL BIOPSY ENDOMETRIAL BX W/WO ENDOCERVIX BX W/O DILAT SPX Suzanne Roblero APRN.CNM [address] [place] [address] [facility] [address] [place] [address] Referral ID Status Reason Start Date Expiration Date Visits Requested Visits Authorized [id number] Pending Review Auto-Generat ed Referral 11/18/2022 11/18/2023 1 1 Reason Comments Schedule Surgery Reason Comments Pre-Op Update Reason Comments Insect Bite X 1 month on lower o uter part of right leg Reason Comments New Patient Reason Comments New Patient Evaluation Specialty Diagnoses / Procedures Referred By Contac t Referred To Contact Internal Medicine / INTERNAL MEDICINE Diagnoses 3 month follow up Procedures 4C EST Jose Blanton MD [address] [place] [address] Claudette Snyder APRN.LEAVE SPECIALIST [address] [place] [address] Reason Comments Patient Question Reason Comments New Patient polycythemia Reason Comments Appointment Reason Comments 2 month follow up - blood pressure Reason Comments Spirometry Specialty Diagnoses / Procedures Referred By Contac t Referred To Contact [facility] Diagnoses Obstructive lung disease (HCC) Procedures LUNG DIFFUSION CAPACITY (DLCO) DIFFUSING CAPACITY Lucretia Calix MD [address] [place] [address] [address] Referral ID Status Reason Start Date Expiration Date Visits Requested Visits Authorized [id number] Pending Review Auto-Generat ed Referral 03/10/2023 04/08/2024 1 1 Specialty Diagnoses / Procedures Referred By Contac t Referred To Contact [facility] Diagnoses Obstructive lung disease (HCC) Procedures LUNG VOLUMES Lucretia Calix MD [address] [place] [address] [address] Referral ID Status Reason Start Date Expiration Date Visits Requested Visits Authorized [id number] Pending Review Auto-Generat ed Referral 03/10/2023 04/08/2024 [address] Specialty Diagnoses / Procedures Referred By Contac t Referred To Contact Radiology / RADIO CT SCAN [facility] Diagnoses Polycythemia [D75.1] Procedures [place] [address] [place] [id number] Scan [facility] [address] [place] [address] Reason Comments Radiology US Specialty Diagnoses / Procedures Referred By Contac t Referred To Contact [facility] Diagnoses Postmenopausal bleeding Procedures US FEMALE PELVIS TRANSVAG US TRANSVAGINAL Suzanne Roblero APRN.CNKhadijah [address] [place] [address] [place] [address] Referral ID Status Reason Start Date Expiration Date Visits Requested Visits Authorized [id number] Pending Review Auto-Generat ed Referral 11/18/2022 12/18/2023 1 1 Reason Comments PSG Check In Psg Check In (Adult) Reason Comments Results Sleep study Specialty Diagnoses / Procedures Referred By Stevenson t Referred To Contact Laboratory Medicine / LAB [facility] Diagnoses CBC* Procedures LAB Raimundo Lee MD [address] [place] [address] Lab [facility] [address] [place] [address] Referral ID Status Reason Start Date Expiration Date V isits Requested Visits Authorized [id number] Closed Patient Cleared - Qualified 100% FAS 02/10/2023 05/12/2023 99 99 Reason Comments Cough Sore throat, cough, and sob x 1 day INFORMATION SOURCE (unrecogn ized section and content) DATE CREATED AUTHOR AUTHOR'S ORGANIZ ATION 08/17/2023 [facility] FOR RECORDS PERTAINING TO PATIENTS WHO ARE OR HAVE BEEN ENROLLED IN A CHEMICAL DEPENDENCY/SUBSTANCEABUSE PROGRAM, SOME INFORMATION MAY BE OMITTED. This clinical summary was aggregated from multiple sources. Caution should be exercised in using it in the provision of clinical care. This summary normalizes information from multiple sources, and as a consequence, information in this document may materially change the coding, format and clinical context of patient data. In addition, data may be omitted in some cases. CLINICAL DECISIONS SHOULD BE BASED ON THE PRIMARY CLINICAL RECORDS. [employer] [facility]. provides no warranty or guarantee of the accuracy or completeness of information in this document.
== END 2023-08-27 22:50 | disposition home or self-care (01) ==
PROVIDERS: Emergency Provider Emergency Medicine; PCP Internal Medicine; Visit Provider Emergency Medicine
DX: K57.32 Diverticulitis of large intestine without perforation or abscess without bleeding (principal); F17.210 Nicotine dependence, cigarettes, uncomplicated; I10 Essential (primary) hypertension; F32.A Depression, unspecified; Z79.899 Other long term (current) drug therapy
CPT/HCPCS: 74176; 80048; 81001; 85025; 99283; A4216